=== PATIENT | female | born 1950 | race American Indian/Alaskan Native ===

== ENCOUNTER 2016-07-12 20:31 | Emergency (ER) | payer MEDICARE ==
[2016-07-12] MEDS ORDERED: TYLENOL PO ONE (22:53)
--- NOTE | 2016-07-12 23:58 | Cat Scan Report ---
FINAL REPORT PROCEDURE: CT HEAD/BRAIN WO CON TECHNIQUE: Computerized tomography of the head was performed without contrast material. HISTORY: headache COMPARISON: No prior studies are available for comparison. FINDINGS: Skull and scalp: Normal. Paranasal sinuses: Normal. Ventricles and subarachnoid spaces: Normal. Cerebrum: No evidence of hemorrhage, acute infarction or mass . Cerebellum and brainstem: No evidence of hemorrhage, acute infarction or mass. Vasculature: Normal. Comments: None. IMPRESSION: Normal Examination
--- NOTE | 2016-07-13 00:15 | Cat Scan Report ---
FINAL REPORT PROCEDURE: CT FACIAL BONES WO CON TECHNIQUE: Computerized tomography of the facial bones and soft tissues with axial and coronal sections performed from the cranial aspect of the frontal sinuses to the caudal portion of the mandible without contrast material. HISTORY: periorbital pain s/p fall and trauma to face COMPARISON: No prior studies are available for comparison. FINDINGS: Bones: No significant abnormality. Paranasal sinuses: There is fluid in the right maxillary sinus.. Soft tissues: No significant abnormality. Other: None. IMPRESSION: There are no bony abnormalities. There is right maxillary sinusitis.
[2016-07-13 00:30] LABS: Basophils % (Auto) 0.5 % (0.0-1.8); Eosinophils % (Auto) 0.5 % (0.0-4.3); Hematocrit 38.7 % (30.3-42.9); Hemoglobin 12.9 gm/dl (10.1-14.3); Mean Corpuscular HGB Conc 33 % (30-34); Mean Corpuscular Hemoglobin 30 pg (28-32); Mean Corpuscular Volume 91 fl (79-97); Platelet Count 166 K/mm3 (140-440); Red Blood Count 4.28 M/mm3 (3.65-5.03); Red Cell Distribution Width 14.7 % (13.2-15.2); White Blood Count 8.6 K/mm3 (4.5-11.0)
[2016-07-13 00:40] LABS: Alanine Aminotransferase 15 units/L (7-56); Albumin/Globulin Ratio 1.2 %; Alkaline Phosphatase 108 units/L (35-129); Anion Gap 19 mmol/L; BUN/Creatinine Ratio 26.66; Blood Urea Nitrogen 16 mg/dL (7-17); Calcium 9.2 mg/dL (8.4-10.2); Carbon Dioxide 23 mmol/L (22-30); Chloride 101.7 mmol/L (98-107); Glucose 102 mg/dL (65-100); Potassium 4.2 mmol/L (3.6-5.0); Sodium 139 mmol/L (137-145); Total Protein 7.4 g/dL (6.3-8.2)
--- NOTE | 2016-07-13 01:11 | Emergency Department Report ---
HPI - General Chief Complaint: Seizure Time Seen by Provider: 07/12/16 22:04 - HPI HPI: The patient is a 65-year-old female with a history of epilepsy, who presents for evaluation of headache and facial pain. The patient reports left periocular facial pain and left frontal headache, onset approximately 1 hour prior to arrival, consistent since onset, moderate in severity, beginning after experiencing a seizure and striking her head on the ground. The patient denies neck pain, chest pain, dyspnea, abdominal pain, back pain, pain to the extremities, paresthesias, or deficit in the arms or legs, urine or bowel incontinence or retention, or other focal neurological deficit. ED Past Medical Hx - Past Medical History Previous Medical History?: Yes Hx Hypertension: Yes Hx Seizures: Yes - Surgical History Past Surgical History?: No - Social History Smoking Status: Never Smoker Substance Use Type: None - Medications Home Medications: Home Medications Medication Instructions Recorded Confirmed Last Taken Type Acetaminophen [Tylenol] 500 mg PO Q6HR #20 tablet 07/13/16 Unknown Rx ED Review of Systems ROS: Stated complaint: SEIZURE/HIT HEAD/LOC Other details as noted in HPI Constitutional: denies: fever ENT: reports facial pain denies: throat or neck pain Respiratory: denies: cough, shortness of breath Cardiovascular: denies: chest pain Endocrine: denies unexplained weight loss or gain Gastrointestinal: denies: abdominal pain, nausea Genitourinary: denies: dysuria Musculoskeletal: denies: leg swelling Skin: denies: rash Neurological: reports headache Hematological/Lymphatic: denies: easy bleeding or easy bruising Psych: denies sadness or hopelessness Physical Exam - Physical Exam Vital Signs: Vital Signs 07/12/16 07/12/16 07/12/16 21:03 21:08 21:17 Temperature 98.4 F 99.1 F Pulse Rate 88 81 Respiratory 18 39 H Rate Blood Pressure 108/83 158/69 O2 Sat by Pulse 100 99 Oximetry 07/12/16 07/12/16 07/13/16 22:00 23:00 00:00 Temperature Pulse Rate 74 92 H 82 Respiratory Rate Blood Pressure 144/78 111/73 O2 Sat by Pulse 98 97 99 Oximetry 07/13/16 00:11 Temperature Pulse Rate Respiratory 18 Rate Blood Pressure O2 Sat by Pulse Oximetry Physical Exam: General: well-nourished, well-developed, no acute distress Head: Normocephalic, left periocular ecchymosis in tenderness to palpation present Eyes: normal sclera, EOMI, PERRL, no proptosis or enophthalmos ENT: Mucous membranes are pink and moist Neck: trachea midline, neck supple, No neck stiffness, no cervical adenopathy Respiratory: Breath sounds equal bilaterally, no wheezing, rales, or rhonchi Cardio: S1 and S2 present, no murmurs, rubs, gallops, capillary refill is brisk Abdomen: Normoactive bowel sounds, soft abdomen, no rigidity, no guarding or rebound tenderness Musc: No pitting edema Skin: No rash Neuro: Alert oriented 2, no facial drooping, normal speech, no sensation and motor deficit in the arms or legs, reflexes 2+ symmetric on DTR testing, no coordination deficit with finger to nose testing, Romberg negative, no obvious gross neuro deficits Psych: Normal affect ED Course Vital Signs 07/12/16 07/12/16 07/12/16 21:03 21:08 21:17 Temperature 98.4 F 99.1 F Pulse Rate 88 81 Respiratory 18 39 H Rate Blood Pressure 108/83 158/69 O2 Sat by Pulse 100 99 Oximetry 07/12/16 07/12/16 07/13/16 22:00 23:00 00:00 Temperature Pulse Rate 74 92 H 82 Respiratory Rate Blood Pressure 144/78 111/73 O2 Sat by Pulse 98 97 99 Oximetry 07/13/16 00:11 Temperature Pulse Rate Respiratory 18 Rate Blood Pressure O2 Sat by Pulse Oximetry ED Medical Decision Making - Lab Data Result diagrams: 07/12/16 23:55 07/12/16 23:55 - Medical Decision Making The patient was seen and examined by myself. The patient is placed on a alarm security or surveillance monitor and continuous pulse ox. On initial evaluation, the patient was found to be in no distress. Evaluation orders were placed. The patient given a tablet of Tylenol for her headache. CT scan the head is negative. CT scan of the facial bones is negative for fracture. Lab results are unremarkable. The patient was monitored in the emergency department for greater than 2 hours without any seizure-like activity. The patient was reevaluated and reported that her pain was improved. The patient is stable for discharge with outpatient follow-up. The patient is given follow-up and return instructions. The patient expressed understanding and agreed with the plan. The patient is discharged in stable condition. Critical care attestation.: If time is entered above; I have spent that time in minutes in the direct care of this critically ill patient, excluding procedure time. ED Disposition Clinical Impression: Seizure, Acute post-traumatic headache, not intractable, Facial pain, acute Disposition: DISCHARGED TO HOME OR SELFCARE Is pt being admited?: No Does the pt Need Aspirin: No Condition: Stable Instructions: Epilepsy (ED), Medical Clearance for Psychiatric Care (ED) Prescriptions: Acetaminophen [Tylenol] 500 mg PO Q6HR #20 tablet Referrals: PRIMARY CARE, [Primary Care Provider] - 3-5 Days Time of Disposition: 01:09
[2016-07-13 01:42] VITALS: BP 129/59
== END 2016-07-13 03:23 | disposition home or self-care (01) ==
LOC: ED 20:31
DX: G44.319 Acute post-traumatic headache, not intractable (principal); R56.9 Unspecified convulsions; I10 Essential (primary) hypertension
CPT/HCPCS: 36415; 70450; 70486; 80053; 83735; 85025; 93005; 93010; 99285; G0480; 80320

== ENCOUNTER 2016-07-13 12:20 | Emergency (ER) | payer MEDICARE ==
[2016-07-13] MEDS ORDERED: KEPPRA 1,000 MG/NS 0.75% 100ML 1,000 MG/100 ML BAG IV ONE (12:48)
[2016-07-13] MEDS ORDERED: TORADOL IV ONE (12:49)
--- NOTE | 2016-07-13 12:58 | Emergency Department Report ---
ED Seizure HPI - General Chief Complaint: Seizure Stated Complaint: SEIZURES Time Seen by Provider: 07/13/16 12:41 Source: patient, EMS Mode of arrival: Stretcher Limitations: No Limitations - History of Present Illness Initial Comments: 65 year old female the past medical history schizophrenia, hypertension, and seizures presents from [place] with seizure. Seizure was witnessed by staff and last approximately 30 seconds. Patient's been compliant with her Keppra to 50 mg twice a day. Patient was seen here last night for seizure as well. During that seizure episode patient fell injuring the left side of her face. Patient had a negative CT head and facial bones last night. Per medical record review she did not receive any IV seizure medication prior to discharge. Patient complains continued moderate pain to the left maxillary facial bones there is worse with palpation. Mild tongue abrasion without urinary incontinence reported. - Related Data Previous Rx's Medication Instructions Recorded Last Taken Type Acetaminophen [Tylenol] 500 mg PO Q6HR #20 tablet 07/13/16 Unknown Rx levETIRAcetam [Keppra TAB] 500 mg PO BID #60 tablet 07/13/16 Unknown Rx Allergies Allergy/AdvReac Type Severity Reaction Status Date / Time No Known Allergies Allergy Unverified 07/12/16 21:03 ED Review of Systems ROS: Stated complaint: SEIZURES Other details as noted in HPI Comment: All other systems reviewed and negative Other: Constitutional: No fevers chills Eyes: No eye pain visual changes ENT: No ear pain or throat pain. + left face pain Neck: Denies pain Respiratory: Denies cough wheezing shortness of breath Cardiovascular: Denies chest pain, palpitations, syncope GI: Denies abdominal pain, nausea, vomiting, diarrhea : Denies dysuria Musculoskeletal: Denies back pain Skin: Denies rash, lesions, erythema Neurologic: Denies numbness, weakness Psychiatric: Denies suicidal ideation, hallucinations ED Past Medical Hx - Past Medical History Previous Medical History?: Yes Hx Hypertension: Yes Hx Seizures: Yes - Social History Smoking Status: Unknown if ever smoked - Medications Home Medications: Home Medications Medication Instructions Recorded Confirmed Last Taken Type Acetaminophen [Tylenol] 500 mg PO Q6HR #20 tablet 07/13/16 Unknown Rx levETIRAcetam [Keppra TAB] 500 mg PO BID #60 tablet 07/13/16 Unknown Rx ED Physical Exam - General Limitations: No Limitations - Other Other exam information: General: No limitations Head exam: Atraumatic, normocephalic Eyes exam: Normal appearance ENT: Moist mucous membrane, normal oropharynx. Mild abrasion to anterior tongue. Mild swelling and tenderness to left maxillary sinus bone Neck exam: Normal inspection, full range of motion Respiratory exam: Clear to auscultation bilateral, no wheezes, rales, crackles Cardiovascular: Normal rate and rhythm, normal heart sounds Abdomen: Soft, nondistended, and nontender, with normal bowel sounds, no rebound, or guarding Extremity: Full range of motion normal inspection no deformity Back: Normal Inspection, full range of motion, no tenderness Neurologic: Alert, oriented x3, cranial nerves intact, no motor or sensory deficit Psychiatric: normal affect, normal mood Skin: Warm, dry, intact ED Course Vital Signs 07/13/16 07/13/16 12:34 13:11 Temperature 98.4 F Pulse Rate 88 77 Respiratory 17 Rate Blood Pressure 156/110 Blood Pressure 151/70 [Right] O2 Sat by Pulse 97 97 Oximetry - Reevaluation(s) Reevaluation #1: 07/13/16 12:57 IV Keppra 1000 mg and Toradol ordered ED Medical Decision Making - Lab Data Result diagrams: 07/13/16 13:20 07/13/16 13:20 Lab Results 07/13/16 07/13/16 07/13/16 Range/Units 13:20 13:20 13:54 WBC 6.0 (4.5-11.0) K/mm3 RBC 4.15 (3.65-5.03) M/mm3 Hgb 12.4 (10.1-14.3) gm/dl Hct 37.8 (30.3-42.9) % MCV 91 (79-97) fl MCH 30 (28-32) pg MCHC 33 (30-34) % RDW 14.7 (13.2-15.2) % Plt Count 157 (140-440) K/mm3 Lymph % (Auto) 29.8 (13.4-35.0) % [place] % (Auto) 8.2 H (0.0-7.3) % Eos % (Auto) 0.6 (0.0-4.3) % Baso % (Auto) 0.3 (0.0-1.8) % Lymph # 1.8 (1.2-5.4) K/mm3 [place] # 0.5 (0.0-0.8) K/mm3 Eos # 0.0 (0.0-0.4) K/mm3 Baso # 0.0 (0.0-0.1) K/mm3 Seg Neutrophils % 61.1 (40.0-70.0) % Seg Neutrophils # 3.7 (1.8-7.7) K/mm3 Sodium 142 (137-145) mmol/L Potassium 4.5 (3.6-5.0) mmol/L Chloride 103.3 (98-107) mmol/L Carbon Dioxide 26 (22-30) mmol/L Anion Gap 17 mmol/L BUN 15 (7-17) mg/dL Creatinine 0.6 L (0.7-1.2) mg/dL Estimated GFR > 60 ml/min BUN/Creatinine Ratio 25.00 % Glucose 89 (65-100) mg/dL Calcium 9.1 (8.4-10.2) mg/dL Magnesium 2.00 (1.7-2.3) mg/dL Urine Opiates Screen Presumptive negative Urine Methadone Screen Presumptive negative Ur Barbiturates Screen Presumptive negative Ur Phencyclidine Scrn Presumptive negative Ur Amphetamines Screen Presumptive negative U Benzodiazepines Scrn Presumptive negative Urine Cocaine Screen Presumptive negative U Marijuana (THC) Screen Presumptive negative Drugs of Abuse Note Disclamer - Medical Decision Making The patient had no further seizure activity in the ED. Pt received Keppra 100mg IV. patient take his Keppra from 250 to 500 mg twice a day. - Differential Diagnosis seizure, medication noncompliance, electrolyte abnormalities Critical Care Time: No Critical care attestation.: If time is entered above; I have spent that time in minutes in the direct care of this critically ill patient, excluding procedure time. ED Disposition Clinical Impression: Breakthrough seizure Disposition: OP ADMITTED IP TO THIS HOSP Is pt being admited?: Yes Condition: Stable Instructions: Epilepsy (ED) Additional Instructions: Increasing your Keppra to 500 mg twice a day. Follow-up with neurology. Return if symptoms worsen. Prescriptions: levETIRAcetam [Keppra TAB] 500 mg PO BID #60 tablet Referrals: GAUTAM KIM MD [Staff Physician] - 3-5 Days (Neurology) NIKKY MYERS MD [Staff Physician] - 3-5 Days (Neurology) Time of Disposition: 14:48
--- NOTE | 2016-07-13 13:08 | Admit Criteria Form ---
Admission Criteria Documentation: SEIZURE Clinical Indications for Admission to Inpatient Care (Place 'X' for any and all applicable criteria): Admission is indicated for seizure and ANY ONE of the following(1)(2)(3)(4)(5): [X]I. Inpatient admission required rather than observation care (Also use Seizure: Observation Care Criteria as appropriate) because of ANY ONE of the following: [ ]a) Altered mental status that is severe or persistent [ ]b) New focal neurologic deficit that is severe or persistent [ ]c) Metabolic disorder (eg, hypoglycemia, hyponatremia) that is severe or persistent [X]d) Recurrent seizure [ ]e) Outpatient antiseizure regimen cannot be established (eg , patient cannot tolerate medication, initiation requires inpatient care) [ ]f) Need for ongoing intravenous infusion of antiseizure medication [ ]g) Cardiac arrhythmias of immediate concern [ ]h) Cerebral bleeding, hydrocephalus, or vasospasm monitoring (14) [ ]i) Increased intracranial pressure or cerebral edema monitoring (15) [ ]j) Other treatment or monitoring requiring inpatient admission [ ]II. Status epilepticus [A] or repetitive seizures not controlled with emergent treatment (6)(8) [ ]III. Brain disorder (eg, tumor, edema, and hydrocephalus) that requiring monitoring or intervention available only at inpatient level of care. [ ]IV. Brain insult (eg, severe trauma, stroke, drug toxicity, or withdrawal) that requires monitoring or intervention available only at inpatient level of care (10)(11) Extended stay beyond goal length of stay may be needed for (22) [ ]a) Complications of status epilepticus [ ]b) Refractory status epilepticus [ ]c) Etiology-specific therapy for conditions such as [employer] infection, head injury,eclampsia, severe metabolic abnormalities, and brain tumor [ ]d) Residual neurologic damage, [ ]e) Initiation of significant change to anticonvulsant treatment [ ]f) Older patients (65 years or older) [ ]g) Patient requiring intubation (eg, to protect airway) The original [email or web address] content created by [employer] has been revised. The portions of the content which have been revised are identified through the use of italic text or in bold, and [employer] license of [facility] [employer] has neither reviewed nor approved the modified material. All other unmodified content is copyright [facility] [employer]. Please see references footnoted in the original [facility] edition 2016
[2016-07-13 13:36] LABS: Basophils % (Auto) 0.3 % (0.0-1.8); Eosinophils % (Auto) 0.6 % (0.0-4.3); Hematocrit 37.8 % (30.3-42.9); Hemoglobin 12.4 gm/dl (10.1-14.3); Mean Corpuscular HGB Conc 33 % (30-34); Mean Corpuscular Hemoglobin 30 pg (28-32); Mean Corpuscular Volume 91 fl (79-97); Platelet Count 157 K/mm3 (140-440); Red Blood Count 4.15 M/mm3 (3.65-5.03); Red Cell Distribution Width 14.7 % (13.2-15.2)
[2016-07-13 13:53] LABS: Blood Urea Nitrogen 15 mg/dL (7-17); Calcium 9.1 mg/dL (8.4-10.2); Carbon Dioxide 26 mmol/L (22-30); Glucose 89 mg/dL (65-100)
[2016-07-13 13:54] LABS: Anion Gap 17 mmol/L; Chloride 103.3 mmol/L (98-107); Potassium 4.5 mmol/L (3.6-5.0); Sodium 142 mmol/L (137-145)
[2016-07-13 13:58] LABS: Urine Drugs of Abuse Note Disclamer
[2016-07-13 15:13] VITALS: BP 134/67
== END 2016-07-13 16:23 | disposition admitted as inpatient to this hospital (09) ==
LOC: ED 12:20
DX: R56.9 Unspecified convulsions (principal); R51 Headache; I10 Essential (primary) hypertension
CPT/HCPCS: 36415; 80048; 80307; 83735; 85025; 96365; 96375; 99284; J1885; J1953

== ENCOUNTER 2016-12-30 12:10 | Inpatient (IN) | payer MEDICARE ==
[2016-12-30 14:01] LABS: Basophils % (Auto) 0.9 % (0.0-1.8); Hematocrit 40.9 % (30.3-42.9); Hemoglobin 13.9 gm/dl (10.1-14.3); Mean Corpuscular HGB Conc 34 % (30-34); Mean Corpuscular Hemoglobin 31 pg (28-32); Mean Corpuscular Volume 92 fl (79-97); Platelet Count 176 K/mm3 (140-440); Red Blood Count 4.47 M/mm3 (3.65-5.03); Red Cell Distribution Width 14.1 % (13.2-15.2); White Blood Count 7.8 K/mm3 (4.5-11.0)
[2016-12-30 14:02] LABS: Alanine Aminotransferase 17 units/L (7-56); Albumin 4.4 g/dL (3.9-5); Albumin/Globulin Ratio 1.5 %; Alkaline Phosphatase 112 units/L (35-129); Anion Gap 20 mmol/L; BUN/Creatinine Ratio 20; Blood Urea Nitrogen 14 mg/dL (7-17); Calcium 9.5 mg/dL (8.4-10.2); Carbon Dioxide 26 mmol/L (22-30); Chloride 97.9 mmol/L (98-107); Glucose 115 mg/dL (65-100); Sodium 140 mmol/L (137-145); Total Protein 7.3 g/dL (6.3-8.2)
[2016-12-30] MEDS ORDERED: KEPPRA 1,000 MG/NS 0.75% 100ML 1,000 MG/100 ML BAG IV ONE (16:35)
--- NOTE | 2016-12-30 16:35 | Emergency Department Report ---
ED General Adult HPI - General Chief complaint: Seizure Stated complaint: SEIZURE Time Seen by Provider: 12/30/16 16:27 Source: patient, EMS (ems notes not available at time of chart dictation), RN notes reviewed Mode of arrival: Stretcher Limitations: No Limitations, Other (patient is a poor historian) - History of Present Illness Initial comments: This is a 66-year-old female. The patient has a past medical history of schizophrenia, hypertension and seizure disorder. As per her enclosed medical records, patient takes 750 mg of Keppra twice daily. Patient is sent to the ER for possible seizure. Apparently she was found down at home by a caregiver. Patient has no recollection of this event. She denies headache, neck pain, chest pain, abdominal pain, shortness of breath, denies homicidality and suicidality. Patient has no complaints, therefore no exacerbating or relieving factors, no radiation, no quality due to the nature of her symptoms. -: unknown Severity scale (0 -10): 0 Improves with: none Worsens with: none Associated Symptoms: denies other symptoms - Related Data Home Medications Medication Instructions Recorded Confirmed Last Taken Hydrochlorothiazide [HCTZ] 25 mg PO DAILY 12/30/16 12/30/16 Unknown Meloxicam [Mobic] 7.5 mg PO DAILY 12/30/16 12/30/16 Unknown levETIRAcetam [Keppra TAB] 750 mg PO BID 12/30/16 12/30/16 Unknown Previous Rx's Medication Instructions Recorded Last Taken Type Acetaminophen [Tylenol] 500 mg PO Q6HR #20 tablet 07/13/16 Unknown Rx Allergies Allergy/AdvReac Type Severity Reaction Status Date / Time No Known Allergies Allergy Unverified 07/12/16 21:03 ED Review of Systems ROS: Stated complaint: SEIZURE Other details as noted in HPI Constitutional: denies: fever Eyes: denies: eye discharge ENT: denies: epistaxis Respiratory: denies: cough Cardiovascular: denies: chest pain Gastrointestinal: denies: abdominal pain Genitourinary: denies: dysuria Musculoskeletal: as per HPI Skin: as per HPI Neurological: confusion Psychiatric: denies: homicidal thoughts, suicidal thoughts ED Past Medical Hx - Past Medical History Previous Medical History?: Yes Hx Hypertension: Yes Hx Seizures: Yes Hx Psychiatric Treatment: Yes (Bipolar) - Social History Smoking Status: Unknown if ever smoked - Medications Home Medications: Home Medications Medication Instructions Recorded Confirmed Last Taken Type Acetaminophen [Tylenol] 500 mg PO Q6HR #20 tablet 07/13/16 12/30/16 Unknown Rx Hydrochlorothiazide [HCTZ] 25 mg PO DAILY 12/30/16 12/30/16 Unknown History Meloxicam [Mobic] 7.5 mg PO DAILY 12/30/16 12/30/16 Unknown History levETIRAcetam [Keppra TAB] 750 mg PO BID 12/30/16 12/30/16 Unknown History ED Physical Exam - General Limitations: Other (the patient is a poor historian) General appearance: alert, in no apparent distress - Head Head exam: Present: atraumatic, normocephalic - Eye Eye exam: Present: normal appearance, EOMI, other (visual acuity intact to finger counting, color perception, reading at a close distance). Absent: nystagmus - ENT ENT exam: Present: normal exam, normal orophraynx, mucous membranes moist, TM's normal bilaterally, normal external ear exam, other (negative nasoseptal hematoma. Negative hemotympanum) - Neck Neck exam: Present: normal inspection, full ROM. Absent: tenderness, meningismus - Respiratory Respiratory exam: Present: normal lung sounds bilaterally. Absent: respiratory distress, chest wall tenderness - Cardiovascular Cardiovascular Exam: Present: regular rate, normal rhythm, normal heart sounds. Absent: systolic murmur, diastolic murmur, rubs, gallop - GI/Abdominal GI/Abdominal exam: Present: soft, normal bowel sounds. Absent: distended, tenderness, guarding, rebound, rigid, pulsatile mass - Extremities Exam Extremities exam: Present: normal inspection, full ROM, normal capillary refill. Absent: tenderness, calf tenderness - Back Exam Back exam: Present: normal inspection, full ROM. Absent: tenderness, CVA tenderness (R), paraspinal tenderness, vertebral tenderness - Neurological Exam Neurological exam: Present: alert, normal gait, other (Extraocular movements intact. Tongue midline. No facial droop. Facial sensation intact to light touch in the V1, V2, V3 distribution bilaterally. 5 and 5 strength in 4 extremities.. Sensation is intact to light touch in 4 extremities.). Absent: motor sensory deficit - Psychiatric Psychiatric exam: Present: normal affect, normal mood. Absent: homicidal ideation, suicidal ideation - Skin Skin exam: Present: warm, dry, intact, normal color. Absent: rash ED Course Vital Signs 12/30/16 12/30/16 12/30/16 12:59 17:55 18:08 Temperature 99.1 F Pulse Rate 85 82 80 Respiratory 16 19 14 Rate Blood Pressure 202/98 Blood Pressure 202/98 205/91 185/99 [Left] O2 Sat by Pulse 97 94 94 Oximetry - Reevaluation(s) Reevaluation #1: 12/30/16 18:56 Differential diagnosis, including but not limited to: Intracranial injury, cervical spine injury, pneumonia, urinary tract infection, electrolyte arrangement, myositis, breakthrough seizure Assessment and plan: 66-year-old female with a history of seizure disorder, probable breakthrough seizure. The patient has been observed in the ER for hours. She's had no convulsive events. She has no complaints at this time. The patient does not require a 1013, although she has some samaritan fixations. She was evaluated by the crisis expert, Ms. Rita Aleman, who agreed that the patient does not meet 1013 criteria. Laboratory studies were unremarkable. CT scan of the brain and cervical spine were also unremarkable. Patient loaded with 1 g of Keppra, and at one point would not cooperate with CT scan, so required 4 mg of Ativan. The patient has been observed in the ER without decompensation, and she is suitable to follow-up within a patient neurologist at this time. 12/30/16 19:01 Reevaluation #2: 12/30/16 20:10 CT scan of the brain is negative. CT scan of the cervical spine is pending. Patient with no distress or complaints at this time, appears comfortable. Reevaluation #3: 12/30/16 22:19 CT of the cervical spine is negative. No convulsive events 4 hours. Patient will be discharged at this time. ED Medical Decision Making - Lab Data Result diagrams: 12/30/16 13:26 12/30/16 13:26 Vital Signs 12/30/16 12/30/16 12/30/16 12:59 17:55 18:08 Temperature 99.1 F Pulse Rate 85 82 80 Respiratory 16 19 14 Rate Blood Pressure 202/98 Blood Pressure 202/98 205/91 185/99 [Left] O2 Sat by Pulse 97 94 94 Oximetry Lab Results 11/12/30/16 12/30/16 Range/Units 13:26 13:26 16:44 WBC 7.8 (4.5-11.0) K/mm3 RBC 4.47 (3.65-5.03) M/mm3 Hgb 13.9 (10.1-14.3) gm/dl Hct 40.9 (30.3-42.9) % MCV 92 (79-97) fl MCH 31 (28-32) pg MCHC 34 (30-34) % RDW 14.1 (13.2-15.2) % Plt Count 176 (140-440) K/mm3 Lymph % (Auto) 31.1 (13.4-35.0) % [place] % (Auto) 8.3 H (0.0-7.3) % Eos % (Auto) 1.0 (0.0-4.3) % Baso % (Auto) 0.9 (0.0-1.8) % Lymph # 2.4 (1.2-5.4) K/mm3 [place] # 0.6 (0.0-0.8) K/mm3 Eos # 0.1 (0.0-0.4) K/mm3 Baso # 0.1 (0.0-0.1) K/mm3 Seg Neutrophils % 58.7 (40.0-70.0) % Seg Neutrophils # 4.6 (1.8-7.7) K/mm3 Sodium 140 (137-145) mmol/L Potassium 4.0 (3.6-5.0) mmol/L Chloride 97.9 L (98-107) mmol/L Carbon Dioxide 26 (22-30) mmol/L Anion Gap 20 mmol/L BUN 14 (7-17) mg/dL Creatinine 0.7 (0.7-1.2) mg/dL Estimated GFR > 60 ml/min BUN/Creatinine Ratio 20 % Glucose 115 H (65-100) mg/dL Calcium 9.5 (8.4-10.2) mg/dL Total Bilirubin 0.50 (0.1-1.2) mg/dL AST 22 (5-40) units/L ALT 17 (7-56) units/L Alkaline Phosphatase 112 (35-129) units/L Total Creatine Kinase 335 H (30-135) units/L Total Protein 7.3 (6.3-8.2) g/dL Albumin 4.4 (3.9-5) g/dL Albumin/Globulin Ratio 1.5 % Urine Color (Yellow) Urine Turbidity (Clear) Urine pH (5.0-7.0) Ur Specific [place] (1.003-1.030) Urine Protein (Negative) mg/dL Urine Glucose (UA) (Negative) mg/dL Urine Ketones (Negative) mg/dL Urine Blood (Negative) Urine Nitrite (Negative) Urine Bilirubin (Negative) Urine Urobilinogen (<2.0) mg/dL Ur Leukocyte Esterase (Negative) Urine WBC (Auto) (0.0-6.0) /HPF Urine RBC (Auto) (0.0-6.0) /HPF U Epithel Cells (Auto) (0-13.0) /HPF Salicylates (2.8-20.0) mg/dL Acetaminophen (10.0-30.0) ug/mL 12/30/16 12/30/16 12/30/16 Range/Units 16:44 16:44 17:08 WBC (4.5-11.0) K/mm3 RBC (3.65-5.03) M/mm3 Hgb (10.1-14.3) gm/dl Hct (30.3-42.9) % MCV (79-97) fl MCH (28-32) pg MCHC (30-34) % RDW (13.2-15.2) % Plt Count (140-440) K/mm3 Lymph % (Auto) (13.4-35.0) % [place] % (Auto) (0.0-7.3) % Eos % (Auto) (0.0-4.3) % Baso % (Auto) (0.0-1.8) % Lymph # (1.2-5.4) K/mm3 [place] # (0.0-0.8) K/mm3 Eos # (0.0-0.4) K/mm3 Baso # (0.0-0.1) K/mm3 Seg Neutrophils % (40.0-70.0) % Seg Neutrophils # (1.8-7.7) K/mm3 Sodium (137-145) mmol/L Potassium (3.6-5.0) mmol/L Chloride (98-107) mmol/L Carbon Dioxide (22-30) mmol/L Anion Gap mmol/L BUN (7-17) mg/dL Creatinine (0.7-1.2) mg/dL Estimated GFR ml/min BUN/Creatinine Ratio % Glucose (65-100) mg/dL Calcium (8.4-10.2) mg/dL Total Bilirubin (0.1-1.2) mg/dL AST (5-40) units/L ALT (7-56) units/L Alkaline Phosphatase (35-129) units/L Total Creatine Kinase (30-135) units/L Total Protein (6.3-8.2) g/dL Albumin (3.9-5) g/dL Albumin/Globulin Ratio % Urine Color Straw (Yellow) Urine Turbidity Clear (Clear) Urine pH 7.0 (5.0-7.0) Ur Specific [place] 1.010 (1.003-1.030) Urine Protein <15 mg/dl (Negative) mg/dL Urine Glucose (UA) Neg (Negative) mg/dL Urine Ketones Neg (Negative) mg/dL Urine Blood Neg (Negative) Urine Nitrite Neg (Negative) Urine Bilirubin Neg (Negative) Urine Urobilinogen < 2.0 (<2.0) mg/dL Ur Leukocyte Esterase Neg (Negative) Urine WBC (Auto) 0.0 (0.0-6.0) /HPF Urine RBC (Auto) 1.0 (0.0-6.0) /HPF U Epithel Cells (Auto) < 1.0 (0-13.0) /HPF Salicylates < 0.3 L (2.8-20.0) mg/dL Acetaminophen < 15.0 (10.0-30.0) ug/mL - EKG Data -: EKG Interpreted by Ma - EKG Data 12/30/16 19:03 Normal sinus, 78 bpm, left axis, high left ventricular voltage, left axis deviation, not morphologically consistent with ST elevation myocardial infarction, unchanged from prior EKG from June 2016. - Radiology Data Radiology results: report reviewed, image reviewed X-ray the chest is negative. X-ray of the pelvis is negative. Noncontrast CT scan of the brain and cervical spine: Critical care attestation.: If time is entered above; I have spent that time in minutes in the direct care of this critically ill patient, excluding procedure time. ED Disposition Clinical Impression: History of seizure, Elevated blood pressure reading Disposition: DC-01 TO HOME OR SELFCARE Is pt being admited?: No Does the pt Need Aspirin: No Condition: Good Additional Instructions: Continue current outpatient medications. Do not drive or operate motor vehicles for the next 6 months. Follow up with the primary care doctor or neurologist within the next 7-10 days for seizures and elevated blood pressure. Make certain to take seizure medication as directed. Noncompliance with seizure medication may result in breakthrough seizure, which in turn may result in , disability, paralysis, loss of quality of life. It is also very important to take blood pressure medication, as the patient had an elevated blood pressure while in the emergency department. Her blood pressure needs to be checked and her followed up by primary care doctor within the next 7-10 days. Long-term consultations of hypertension and elevated blood pressure includes stroke, heart attack, disability, , paralysis, loss of quality of life. Please return to the ER by Jennifer fevers, chills, chest pain, shortness of breath , confusion, intractable nausea or vomiting, inability to tolerate liquid feeds. Referrals: LAWRENCE SMITH MD [Primary Care Provider] - 3-5 Days ARTIS BONNER MD [Referring] - 3-5 Days GAUTAM KIM MD [Staff Physician] - 3-5 Days MICKIE CHEW MD [Staff Physician] - 3-5 Days [facility] [Provider Group] - 3-5 Days
--- NOTE | 2016-12-30 17:33 | XRay Report ---
FINAL REPORT EXAM: XR PELVIS 1-2V HISTORY: post fall pelvic pain TECHNIQUE: AP pelvis PRIORS: None. FINDINGS: No acute fractures are identified. The pubic symphysis and SI joints are intact. No evidence of hip fracture or dislocation. No bony lesions are identified. IMPRESSION: Negative no acute abnormalities seen
[2016-12-30 17:35] LABS: Bilirubin,Urine NEG (Negative); Blood,Urine NEG (Negative); Ketones,Urine NEG (Negative); Leukocyte Esterase,Urine NEG (Negative); Nitrite,Urine NEG (Negative); Protein,Urine <15 mg/dL mg/dL (Negative); Urobilinogen,Urine < 2.0 mg/dL (<2.0)
[2016-12-30] MEDS ORDERED: ATIVAN IV ONE (17:35)
--- NOTE | 2016-12-30 17:35 | XRay Report ---
FINAL REPORT EXAM: XR CHEST 1V AP HISTORY: pna TECHNIQUE: upright single view chest PRIORS: None. FINDINGS: Cardiac and mediastinal contours are unremarkable. No focal pulmonary infiltrate is identified. No pleural fluid collection seen. Pulmonary vasculature is unremarkable. IMPRESSION: Negative single-view chest
--- NOTE | 2016-12-30 19:12 | Cat Scan Report ---
FINAL REPORT EXAM: CT HEAD/BRAIN WO CON HISTORY: / seizure TECHNIQUE: CT head without contrast PRIORS: Comparison is dated July 12, 2016 FINDINGS: There is some motion artifact partially limiting the exam. No acute intra-axial or extra-axial hemorrhage is identified. There is no evidence of midline shift or mass effect. The ventricles and sulci are within normal limits. Brandon-white matter differentiation is intact. No acute parenchymal abnormalities seen. Bony calvarium is grossly intact. Visualized portions of the mastoids and paranasal sinuses are unremarkable. IMPRESSION: Motion artifact noted No acute findings
--- NOTE | 2016-12-30 22:15 | Cat Scan Report ---
FINAL REPORT EXAM: CT CERVICAL SPINE WO CON HISTORY: / seizure TECHNIQUE: CT cervical spine with reconstructions PRIORS: None. FINDINGS: Vertebral bodies demonstrate normal height and alignment. There is diffuse disc space narrowing from C2-C3 through C6-C7 with anterior and posterior vertebral osteophytes. The facet joints demonstrate normal alignment. The spinous processes are intact. Craniocervical junction is unremarkable. C1 and C2 are intact. IMPRESSION: Negative CT cervical spine. No acute abnormality seen.
[2017-01-01] MEDS ORDERED: KEPPRA PO SCH (23:45)
[2017-01-02] MEDS ORDERED: TYLENOL PO PRN ×2 (01:08→06:00)
[2017-01-02] MEDS ORDERED: MORPHINE IV PRN (01:08)
[2017-01-02] MEDS ORDERED: PERCOCET 5/325 PO PRN (01:08)
[2017-01-02] MEDS ORDERED: ZOFRAN IV PRN (01:08)
[2017-01-02] MEDS ORDERED: DULCOLAX PR PRN (01:08)
[2017-01-02] MEDS ORDERED: MILK OF MAGNESIA PO PRN (01:08)
[2017-01-02] MEDS ORDERED: D5NS 1,000 ML IV SCH (02:00)
[2017-01-02 05:12] LABS: Basophils % (Auto) 0.3 % (0.0-1.8); Eosinophils % (Auto) 1.7 % (0.0-4.3); Hematocrit 38.9 % (30.3-42.9); Hemoglobin 12.8 gm/dl (10.1-14.3); Mean Corpuscular HGB Conc 33 % (30-34); Mean Corpuscular Hemoglobin 30 pg (28-32); Mean Corpuscular Volume 91 fl (79-97); Platelet Count 173 K/mm3 (140-440); Red Blood Count 4.27 M/mm3 (3.65-5.03); Red Cell Distribution Width 13.6 % (13.2-15.2); White Blood Count 7.5 K/mm3 (4.5-11.0)
[2017-01-02 05:50] LABS: Alanine Aminotransferase 13 units/L (7-56); Albumin 3.8 g/dL (3.9-5); Albumin/Globulin Ratio 1.3 %; Alkaline Phosphatase 93 units/L (35-129); Anion Gap 15 mmol/L; BUN/Creatinine Ratio 32; Blood Urea Nitrogen 19 mg/dL (7-17); Calcium 8.6 mg/dL (8.4-10.2); Carbon Dioxide 28 mmol/L (22-30); Chloride 104.7 mmol/L (98-107); Glucose 90 mg/dL (65-100); Potassium 3.7 mmol/L (3.6-5.0); Sodium 144 mmol/L (137-145); Total Protein 6.7 g/dL (6.3-8.2)
--- NOTE | 2017-01-02 06:28 | Event Note ---
Date: 01/01/17 See dictated H/p in reports
--- NOTE | 2017-01-02 08:42 | History and Physical Report ---
CHIEF COMPLAINT: Seizures and decreased responsiveness. HISTORY OF PRESENT ILLNESS: A 66-year-old female with history of seizures and schizophrenia, was admitted to the Emergency Room for seizures. The patient was found lying on the floor with face down. No chest pain, no palpitations. CURRENT MEDICATIONS: Keppra 750 twice a day, hydrochlorothiazide 25 mg once a day, meloxicam 7.5 mg once a day. PAST SURGICAL HISTORY: Unavailable. SOCIAL HISTORY: Does not smoke. FAMILY HISTORY: Hypertension. REVIEW OF SYSTEMS: Other than seizures and falling lethargy, review of systems is essentially negative. PHYSICAL EXAMINATION: GENERAL: Elderly female, cooperative during examination, lethargic. VITAL SIGNS: Blood pressure is 168/70, temperature is 99.2, pulse is 83, respirations are 20. HEENT: Unremarkable. Pupils equal and reactive. NECK: Supple, no lymphadenopathy, no thyromegaly. LUNGS: Clear to auscultation and percussion. Good air entry. CARDIOVASCULAR: S1, S2 heard. No gallop, no murmur, no rub. Apical impulse in left fifth intercostal space and midclavicular line. ABDOMEN: Soft and benign. No hepatosplenomegaly. No guarding, no rigidity. Hernial orifices are normal. EXTREMITIES: Good pedal pulses. No pedal edema. CENTRAL NERVOUS SYSTEM: Alert, but lethargic to some extent. Occasionally, responds well. SKIN: Normal. LABORATORY DATA: Urine is normal. ASSESSMENT AND PLAN: 1. Acute encephalopathy secondary to seizure disorder. Continue IV Keppra bridged to p.o. Keppra. 2. Seizure disorder. Continue Keppra. 3. Hypertension. Continue hydrochlorothiazide and add losartan if necessary. 4. Psychosis. The patient to be evaluated by mental health. 5. Social issues. The patient may need placement. 6. Deep venous thrombosis prophylaxis, Lovenox 30 mg subcutaneous daily. JOB# [id number] VSM/NTS
[2017-01-02] MEDS: KEPPRA PO SCH ×2 (09:23→22:37)
[2017-01-02] MEDS: MOBIC PO SCH (09:23)
[2017-01-02] MEDS: HCTZ PO SCH (09:24)
--- NOTE | 2017-01-02 09:36 | Progress Note ---
<YULISSA BANUELOS - Last Filed: 01/02/17 15:02> Assessment and Plan Assessment and plan: Patient is a 66 years old female with past medical history of seizure and schizophrenia who presented to the emergency department for seizures. Acute encephalopathy Resolved secondary to seizure, postictal state. CT of the head and cervical spine unremarkable. Seizure precautions Seizure disorder breakthrough seizure secondary to medication noncompliance. Continue on oral Keppera Frequent neuro checks. We will obtain EEG Ativan when necessary Oxygen supplement when necessary Implement seizure precautions Neurology consulted Supportive care Hypertension Resume home antihypertensive medication Hydralazine for SBP>160 Closely monitor blood pressure Psychosis Mental health consulted Social issues Patient needs placement, spoke with case management Medical Noncompliance Patient noncompliance with Keppra Counseled to improve compliance DVT prophylaxis Lovenox History Interval history: Patient denies chest pain, shortness of breath, no episode of seizure. Labs and nursing notes reviewed Hospitalist Physical - Constitutional Vitals: Temp Pulse Resp BP Pulse Ox 99.4 F 76 18 146/75 95 01/02/17 07:24 01/02/17 07:24 01/02/17 07:24 01/02/17 07:24 01/02/17 07:24 General appearance: Present: no acute distress - EENT Eyes: Present: PERRL ENT: hearing intact - Neck Neck: Present: supple - Respiratory Respiratory effort: normal Respiratory: bilateral: CTA - Cardiovascular Rhythm: regular Heart Sounds: Present: S1 & S2 - Abdominal General gastrointestinal: soft, non-tender - Integumentary Integumentary: Present: clear, warm, dry - Psychiatric Psychiatric: appropriate mood/affect - Neurologic Neurologic: moves all extremities - Allied Health Allied health notes reviewed: nursing Results - Labs CBC & Chem 7: 01/02/17 04:42 01/02/17 04:42 Labs: Laboratory Last Values WBC 7.5 K/mm3 (4.5-11.0) 01/02/17 04:42 RBC 4.27 M/mm3 (3.65-5.03) 01/02/17 04:42 Hgb 12.8 gm/dl (10.1-14.3) 01/02/17 04:42 Hct 38.9 % (30.3-42.9) 01/02/17 04:42 MCV 91 fl (79-97) 01/02/17 04:42 MCH 30 pg (28-32) 01/02/17 04:42 MCHC 33 % (30-34) 01/02/17 04:42 RDW 13.6 % (13.2-15.2) 01/02/17 04:42 Plt Count 173 K/mm3 (140-440) 01/02/17 04:42 Lymph % (Auto) 50.1 % (13.4-35.0) H 01/02/17 04:42 [place] % (Auto) 8.0 % (0.0-7.3) H 01/02/17 04:42 Eos % (Auto) 1.7 % (0.0-4.3) 01/02/17 04:42 Baso % (Auto) 0.3 % (0.0-1.8) 01/02/17 04:42 Lymph # 3.8 K/mm3 (1.2-5.4) 01/02/17 04:42 [place] # 0.6 K/mm3 (0.0-0.8) 01/02/17 04:42 Eos # 0.1 K/mm3 (0.0-0.4) 01/02/17 04:42 Baso # 0.0 K/mm3 (0.0-0.1) 01/02/17 04:42 Seg Neutrophils % 39.9 % (40.0-70.0) L 01/02/17 04:42 Seg Neutrophils # 3.0 K/mm3 (1.8-7.7) 01/02/17 04:42 Sodium 144 mmol/L (137-145) 01/02/17 04:42 Potassium 3.7 mmol/L (3.6-5.0) 01/02/17 04:42 Chloride 104.7 mmol/L (98-107) 01/02/17 04:42 Carbon Dioxide 28 mmol/L (22-30) 01/02/17 04:42 Anion Gap 15 mmol/L 01/02/17 04:42 BUN 19 mg/dL (7-17) H 01/02/17 04:42 Creatinine 0.6 mg/dL (0.7-1.2) L 01/02/17 04:42 Estimated GFR > 60 ml/min 01/02/17 04:42 BUN/Creatinine Ratio 32 % 01/02/17 04:42 Glucose 90 mg/dL (65-100) 01/02/17 04:42 Calcium 8.6 mg/dL (8.4-10.2) 01/02/17 04:42 Total Bilirubin 0.30 mg/dL (0.1-1.2) 01/02/17 04:42 AST 14 units/L (5-40) 01/02/17 04:42 ALT 13 units/L (7-56) 01/02/17 04:42 Alkaline Phosphatase 93 units/L (35-129) 01/02/17 04:42 Total Creatine Kinase 335 units/L (30-135) H 12/30/16 16:44 Total Protein 6.7 g/dL (6.3-8.2) 01/02/17 04:42 Albumin 3.8 g/dL (3.9-5) L 01/02/17 04:42 Albumin/Globulin Ratio 1.3 % 01/02/17 04:42 Urine Color Straw (Yellow) 12/30/16 17:08 Urine Turbidity Clear (Clear) 12/30/16 17:08 Urine pH 7.0 (5.0-7.0) 12/30/16 17:08 Ur Specific [place] 1.010 (1.003-1.030) 12/30/16 17:08 Urine Protein <15 mg/dl mg/dL (Negative) 12/30/16 17:08 Urine Glucose (UA) Neg mg/dL (Negative) 12/30/16 17:08 Urine Ketones Neg mg/dL (Negative) 12/30/16 17:08 Urine Blood Neg (Negative) 12/30/16 17:08 Urine Nitrite Neg (Negative) 12/30/16 17:08 Urine Bilirubin Neg (Negative) 12/30/16 17:08 Urine Urobilinogen < 2.0 mg/dL (<2.0) 12/30/16 17:08 Ur Leukocyte Esterase Neg (Negative) 12/30/16 17:08 Urine WBC (Auto) 0.0 /HPF (0.0-6.0) 12/30/16 17:08 Urine RBC (Auto) 1.0 /HPF (0.0-6.0) 12/30/16 17:08 U Epithel Cells (Auto) < 1.0 /HPF (0-13.0) 12/30/16 17:08 Salicylates < 0.3 mg/dL (2.8-20.0) L 12/30/16 16:44 Acetaminophen < 15.0 ug/mL (10.0-30.0) 12/30/16 16:44 - Imaging and Cardiology Chest x-ray: image reviewed <SHEEBA WEST - Last Filed: 01/02/17 19:33> Assessment and Plan Assessment and plan: I saw and evaluated the patient. I agree with the findings and the plan of care as documented in the Nurse Practitioner's~note, with the following corrections and additions. Magnesium levels checked; normal range Neuro evaluation noted and appreciated Follow EEG DC planning per case management; possible placement Hospitalist Physical - Constitutional Vitals: Temp Pulse Resp BP Pulse Ox 98.9 F 88 18 142/64 96 01/02/17 15:18 01/02/17 17:13 01/02/17 15:18 01/02/17 15:18 01/02/17 15:18 Results - Labs CBC & Chem 7: 01/02/17 04:42 01/02/17 04:42 Labs: Laboratory Last Values WBC 7.5 K/mm3 (4.5-11.0) 01/02/17 04:42 RBC 4.27 M/mm3 (3.65-5.03) 01/02/17 04:42 Hgb 12.8 gm/dl (10.1-14.3) 01/02/17 04:42 Hct 38.9 % (30.3-42.9) 01/02/17 04:42 MCV 91 fl (79-97) 01/02/17 04:42 MCH 30 pg (28-32) 01/02/17 04:42 MCHC 33 % (30-34) 01/02/17 04:42 RDW 13.6 % (13.2-15.2) 01/02/17 04:42 Plt Count 173 K/mm3 (140-440) 01/02/17 04:42 Lymph % (Auto) 50.1 % (13.4-35.0) H 01/02/17 04:42 [place] % (Auto) 8.0 % (0.0-7.3) H 01/02/17 04:42 Eos % (Auto) 1.7 % (0.0-4.3) 01/02/17 04:42 Baso % (Auto) 0.3 % (0.0-1.8) 01/02/17 04:42 Lymph # 3.8 K/mm3 (1.2-5.4) 01/02/17 04:42 [place] # 0.6 K/mm3 (0.0-0.8) 01/02/17 04:42 Eos # 0.1 K/mm3 (0.0-0.4) 01/02/17 04:42 Baso # 0.0 K/mm3 (0.0-0.1) 01/02/17 04:42 Seg Neutrophils % 39.9 % (40.0-70.0) L 01/02/17 04:42 Seg Neutrophils # 3.0 K/mm3 (1.8-7.7) 01/02/17 04:42 Sodium 144 mmol/L (137-145) 01/02/17 04:42 Potassium 3.7 mmol/L (3.6-5.0) 01/02/17 04:42 Chloride 104.7 mmol/L (98-107) 01/02/17 04:42 Carbon Dioxide 28 mmol/L (22-30) 01/02/17 04:42 Anion Gap 15 mmol/L 01/02/17 04:42 BUN 19 mg/dL (7-17) H 01/02/17 04:42 Creatinine 0.6 mg/dL (0.7-1.2) L 01/02/17 04:42 Estimated GFR > 60 ml/min 01/02/17 04:42 BUN/Creatinine Ratio 32 % 01/02/17 04:42 Glucose 90 mg/dL (65-100) 01/02/17 04:42 Calcium 8.6 mg/dL (8.4-10.2) 01/02/17 04:42 Magnesium 2.10 mg/dL (1.7-2.3) 01/02/17 17:31 Total Bilirubin 0.30 mg/dL (0.1-1.2) 01/02/17 04:42 AST 14 units/L (5-40) 01/02/17 04:42 ALT 13 units/L (7-56) 01/02/17 04:42 Alkaline Phosphatase 93 units/L (35-129) 01/02/17 04:42 Total Creatine Kinase 335 units/L (30-135) H 12/30/16 16:44 Total Protein 6.7 g/dL (6.3-8.2) 01/02/17 04:42 Albumin 3.8 g/dL (3.9-5) L 01/02/17 04:42 Albumin/Globulin Ratio 1.3 % 01/02/17 04:42 Urine Color Straw (Yellow) 12/30/16 17:08 Urine Turbidity Clear (Clear) 12/30/16 17:08 Urine pH 7.0 (5.0-7.0) 12/30/16 17:08 Ur Specific [place] 1.010 (1.003-1.030) 12/30/16 17:08 Urine Protein <15 mg/dl mg/dL (Negative) 12/30/16 17:08 Urine Glucose (UA) Neg mg/dL (Negative) 12/30/16 17:08 Urine Ketones Neg mg/dL (Negative) 12/30/16 17:08 Urine Blood Neg (Negative) 12/30/16 17:08 Urine Nitrite Neg (Negative) 12/30/16 17:08 Urine Bilirubin Neg (Negative) 12/30/16 17:08 Urine Urobilinogen < 2.0 mg/dL (<2.0) 12/30/16 17:08 Ur Leukocyte Esterase Neg (Negative) 12/30/16 17:08 Urine WBC (Auto) 0.0 /HPF (0.0-6.0) 12/30/16 17:08 Urine RBC (Auto) 1.0 /HPF (0.0-6.0) 12/30/16 17:08 U Epithel Cells (Auto) < 1.0 /HPF (0-13.0) 12/30/16 17:08 Salicylates < 0.3 mg/dL (2.8-20.0) L 12/30/16 16:44 Acetaminophen < 15.0 ug/mL (10.0-30.0) 12/30/16 16:44
[2017-01-02] MEDS ORDERED: HCTZ PO SCH (10:00)
[2017-01-02] MEDS ORDERED: MOBIC PO SCH (10:00)
--- NOTE | 2017-01-02 16:03 | Consultation ---
History of Present Illness Consult date: 01/02/17 History of present illness: patient seen and further assessed she has long prior histosy of poorly controlled seizures she is on keppra 750 mg BID this is adequate dose will check magnesium level and EEG I have seen her CT of the head and it is normal for the age I have dictated a full note Medications and Allergies Allergies Allergy/AdvReac Type Severity Reaction Status Date / Time No Known Allergies Allergy Unverified 07/12/16 21:03 Home Medications Medication Instructions Recorded Confirmed Last Taken Type Acetaminophen [Tylenol] 500 mg PO Q6HR #20 tablet 07/13/16 12/30/16 Unknown Rx Hydrochlorothiazide [HCTZ] 25 mg PO DAILY 12/30/16 12/30/16 Unknown History Meloxicam [Mobic] 7.5 mg PO DAILY 12/30/16 12/30/16 Unknown History levETIRAcetam [Keppra TAB] 750 mg PO BID 12/30/16 12/30/16 Unknown History Active Meds: Active Medications Acetaminophen (Tylenol) 650 mg PO Q4H PRN PRN Reason: Pain MILD(1-3)/Fever >100.5/DOMÍNGUEZ Bisacodyl (Dulcolax) 10 mg FL QDAY PRN PRN Reason: Constipation unrelieved by MOM Hydrochlorothiazide (Hctz) 25 mg PO DAILY [facility] Last Admin: 01/02/17 09:24 Dose: 25 mg Dextrose/Sodium Chloride (D5ns) 1,000 mls @ 100 mls/hr IV DIRECT DAVE Levetiracetam (Keppra) 750 mg PO BID [facility] Last Admin: 01/02/17 09:23 Dose: 750 mg Magnesium Hydroxide (Milk Of Magnesia) 30 ml PO Q4H PRN PRN Reason: Constipation Meloxicam (Mobic) 7.5 mg PO DAILY [facility] Last Admin: 01/02/17 09:23 Dose: 7.5 mg Morphine Sulfate (Morphine) 2 mg IV Q4H PRN PRN Reason: Pain, Moderate (4-6) Ondansetron HCl (Zofran) 4 mg IV Q8H PRN PRN Reason: N/V unrelieved by Reglan Oxycodone/Acetaminophen (Percocet 5/325) 1 tab PO Q6H PRN PRN Reason: Pain, Moderate (4-6) Physical Examination - Vital Signs Vital Signs: Vital Signs Temp Pulse Resp BP Pulse Ox 99.1 F 85 16 202/98 97 12/30/16 12:59 12/30/16 12:59 12/30/16 12:59 12/30/16 12:59 12/30/16 12:59 Results - Laboratory Findings CBC and BMP: 01/02/17 04:42 01/02/17 04:42 Abnormal Lab Findings: Abnormal Labs 12/30/16 12/30/16 12/30/16 13:26 13:26 16:44 Lymph % (Auto) Burt % (Auto) 8.3 H Seg Neutrophils % Chloride 97.9 L BUN Creatinine Glucose 115 H Total Creatine Kinase 335 H Albumin Salicylates 12/30/16 01/02/17 01/02/17 16:44 04:42 04:42 Lymph % (Auto) 50.1 H Burt % (Auto) 8.0 H Seg Neutrophils % 39.9 L Chloride BUN 19 H Creatinine 0.6 L Glucose Total Creatine Kinase Albumin 3.8 L Salicylates < 0.3 L
--- NOTE | 2017-01-03 01:56 | Consultation ---
HISTORY OF PRESENT ILLNESS: This is a 66-year-old female who presents with a history of a longstanding seizure disorder. She dates back to 2001, onset of seizures is not clear. She has had a negative CT in the past. She admits to be under some psychological stress as a result of a poor relationship with her daughter. When she presented to the hospital, she had evidence of sodium of 140, potassium of 4.0, glucose of 115. CPK was elevated at 335. The complication from the seizure where she bite her tongue quite extensively, which is typical for her. According to her history, she had a prior history of schizophrenia, hypertension. She was taking Keppra 750 mg twice daily. She states she did not miss any of her medications. Her other medications are hydrochlorothiazide 25 mg daily, Meloxicam 7.5 mg daily. Examination at this point shows she is alert and appropriate. She has a slight contusion and bruising to the right exterior aspect of the right tongue. No clear cut lacerations. The jaw opens and closes normally. There was no evidence of any jaw fracture or any jaw dislocation from the seizure. Cranial nerves are intact. Speech is clear. No tremors or asterixis. Motor tone is symmetrical. Cranial nerves are intact. Motor and sensory examination unremarkable. IMPRESSION: Repeat seizure despite even of Keppra 750 b.i.d. I do not see any marked electrolyte abnormalities. I would check a.m. magnesium level on the patient. I think that will be worthwhile getting. I will also get an EEG. The patient states to me that she typically has the seizures when she gets emotionally upset and this may be the basis, although it seems that she should have fairly good control of her seizures on Keppra 750 b.i.d. JOB# [id number] TEMI/NTS
[2017-01-03 05:27] LABS: Hematocrit 38.6 % (30.3-42.9); Hemoglobin 13.1 gm/dl (10.1-14.3); Mean Corpuscular HGB Conc 34 % (30-34); Mean Corpuscular Hemoglobin 31 pg (28-32); Mean Corpuscular Volume 92 fl (79-97); Platelet Count 162 K/mm3 (140-440); White Blood Count 7.3 K/mm3 (4.5-11.0)
[2017-01-03 05:46] LABS: Anion Gap 13 mmol/L; BUN/Creatinine Ratio 25; Blood Urea Nitrogen 15 mg/dL (7-17); Calcium 8.8 mg/dL (8.4-10.2); Carbon Dioxide 28 mmol/L (22-30); Chloride 102.2 mmol/L (98-107); Glucose 88 mg/dL (65-100); Potassium 3.4 mmol/L (3.6-5.0); Sodium 140 mmol/L (137-145)
[2017-01-03 06:37] LABS: Blastocytes % (Manual) 0 %
[2017-01-03 06:38] LABS: Basophils % (Manual) 0 % (0.0-1.8)
[2017-01-03 06:39] LABS: Diff Status Complete; Platelet Estimate Consistent w Auto
[2017-01-03] MEDS: KEPPRA PO SCH ×2 (09:52→22:14)
[2017-01-03] MEDS: MOBIC PO SCH (09:53)
[2017-01-03] MEDS: HCTZ PO SCH (09:54)
[2017-01-03] MEDS ORDERED: K-DUR PO ONE (10:00)
--- NOTE | 2017-01-03 10:28 | Discharge Summary ---
<SHEEBA WEST - Last Filed: 01/03/17 15:20> Providers - Providers Date of Admission: 01/01/17 15:03 Attending physician: SHEEBA WEST 12/30/16 16:34 Consult to Mental Health [CONS] Urgent Reason For Exam: psych Place consult to:: rn [facility]cu section gang Notified:: awaiting call back 01/02/17 01:08 Consult to Physician [CONS] Routine Consulting Provider: JENNY SYLVESTER Reason For Exam: Seizure disorder Place consult to:: Dr. Sylvester Notified:: Jacey ANGEL Phone number called:: Was contact made?: Yes If yes, spoke with:: [facility] Time called:: 07:51 01/02/17 13:56 Physical Therapy Evaluation and Treat [CONS] Routine Comment: Reason For Exam: Eval/treat, assess gait/strength 01/02/17 15:01 Consult to Dietitian/Nutrition [CONS] Routine Physician Instructions: Reason For Exam: Reason for Consult: Malnutrition Primary care physician: WEIGHT LOSS CONSULTANT Hospitalization Condition: Good Disposition: DC/TX-70 ANOTHER TYPE [facility] Exam - Constitutional Vitals: Temp Pulse Resp BP Pulse Ox 98.9 F 75 18 145/65 98 01/03/17 11:38 01/03/17 14:34 01/03/17 11:31 01/03/17 11:38 01/03/17 11:31 Plan Follow up with: [facility] [Provider Group] - 3-5 Days GAUTAM KIM MD [Staff Physician] - 3-5 Days ARTIS BONNER MD [Referring] - 3-5 Days LAWRENCE SMITH MD [Primary Care Provider] - 3-5 Days MICKIE CHEW MD [Staff Physician] - 3-5 Days ARLETTE LENZ MD [Staff Physician] - 7 Days Prescriptions: Hydrochlorothiazide [HCTZ] 25 mg PO DAILY #30 tablet levETIRAcetam [Keppra TAB] 750 mg PO BID #30 tablet oxyCODONE /ACETAMINOPHEN [Percocet 5/325 mg] 1 tab PO Q6H PRN #7 tablet PRN Reason: Pain, Moderate (4-6) <YULISSA BANUELOS - Last Filed: 01/04/17 08:20> Providers - Providers Date of Admission: 01/01/17 15:03 Date of discharge: 01/03/17 Attending physician: SHEEBA WEST 12/30/16 16:34 Consult to Mental Health [CONS] Urgent Reason For Exam: psych Place consult to:: rn imcu section gang Notified:: awaiting call back 01/02/17 01:08 Consult to Physician [CONS] Routine Consulting Provider: JENNY SYLVESTER Reason For Exam: Seizure disorder Place consult to:: Dr. Sylvester Notified:: Jacey ANGEL Phone number called:: Was contact made?: Yes If yes, [facility] Time called:: 07:51 01/02/17 13:56 Physical Therapy Evaluation and Treat [CONS] Routine Comment: Reason For Exam: Eval/treat, assess gait/strength 01/02/17 15:01 Consult to Dietitian/Nutrition [CONS] Routine Physician Instructions: Reason For Exam: Reason for Consult: Malnutrition Primary care physician: WEIGHT LOSS CONSULTANT Hospitalization Reason for admission: seizure Hospital course: Patient is a 66 years old female with past medical history of seizure and schizophrenia who presented to the emergency department for seizures. Patient was diagnosed with Acute encephalopathy, Seizure disorder, Hypertension, Psychosis, Social issues and Medical Noncompliance. CT of the head no acute intracranial process. Cervical spine unremarkable. ECGs shows normal sinus rythm. CXR WNL. Patient presented with Seizure breakthrough secondary to medication noncompliance. Acute encephalopathy due to postictal state. Patient advised to get EEG as outpatient. She was treated with anticonvulsant, IV fluid hydration, and antihypertensive medications. Patient is clinically improved. Patient advised to follow-up with neurology. Patient homeless [facility] a [facility]. Discharge Diagnosed Acute encephalopathy secondary to seizure, postictal state. Hypertension Psychosis Social issues Patient needs placement, spoke with case management Medical Noncompliance Core Measure Documentation - Palliative Care Palliative Care/ Comfort Measures: Not Applicable - Core Measures Any of the following diagnoses?: none Exam - Constitutional Vitals: Temp Pulse Resp BP Pulse Ox 98.4 F 65 18 154/66 98 01/03/17 04:26 01/03/17 04:26 01/03/17 04:26 01/03/17 04:26 01/03/17 04:26 General appearance: Present: no acute distress - EENT Eyes: Present: PERRL ENT: hearing intact - Neck Neck: Present: supple - Respiratory Respiratory effort: normal Respiratory: bilateral: CTA - Cardiovascular Rhythm: regular Heart Sounds: Present: S1 & S2 - Abdominal General gastrointestinal: Present: soft, non-tender Female genitourinary: Present: deferred - Rectal Rectal Exam: deferred - Integumentary Integumentary: Present: clear, warm, dry - Musculoskeletal Musculoskeletal: strength equal bilaterally - Psychiatric Psychiatric: appropriate mood/affect - Neurologic Neurologic: moves all extremities - Allied Health Allied health notes reviewed: nursing Plan Activity: fall precautions Diet: low fat, low cholesterol, low salt
--- NOTE | 2017-01-03 16:59 | Consultation ---
History of Present Illness - Reason for Consult Consult date: 01/03/17 Reason for consult: Mental Health Evaluation Requesting physician: MARTA CLIFFORD - Chief Complaint Chief complaint: "I am homeless" - History of Present Psychiatric Illness 66 y.o. female presenting to [facility] for possible seizures. Psychiatry was consulted because patient may have a hx of schizophrenia. Today patient is calm and cooperative during the assessment. She stated that she does not have a mental health dx. When asked about medication for schizophrenia she denies taking any. She stated that she has seizures. She was able to tell me that she takes Keppra BID and the dose. She stated when she have a seizure she feels "tired" once it's over. She is adamant about being homeless. She stated that she was residing in [place] [facility], possibly a half-way prior to her admission to the hospital. She denies SI/HI's and AVH's. She denies having manic episodes in the pass. She denies being depressed. Per the staff, patient is completing her ADL's and eating all her meals. Per a previous note, patient was inpatient at [place] 06/2016 and transferred to [facility] for seizure activity. She did admit to being a patient there during that time. She denies recreational drug use and alcohol consumption (etoh). She stated that she is estranged from her 2 children. Medications and Allergies Allergies Allergy/AdvReac Type Severity Reaction Status Date / Time No Known Allergies Allergy Unverified 07/12/16 21:03 Home Medications Medication Instructions Recorded Confirmed Last Taken Type Meloxicam [Mobic] 7.5 mg PO DAILY 12/30/16 12/30/16 Unknown History Hydrochlorothiazide [HCTZ] 25 mg PO DAILY #30 tablet 01/03/17 Unknown Rx levETIRAcetam [Keppra TAB] 750 mg PO BID #30 tablet 01/03/17 Unknown Rx oxyCODONE /ACETAMINOPHEN [Percocet 1 tab PO Q6H PRN #7 tablet 01/03/17 Unknown Rx 5/325 mg] Active Meds: Active Medications Acetaminophen (Tylenol) 650 mg PO Q4H PRN PRN Reason: Pain MILD(1-3)/Fever >100.5/DOMÍNGUEZ Bisacodyl (Dulcolax) 10 mg [place] QDAY PRN PRN Reason: Constipation unrelieved by MOM Hydrochlorothiazide (Hctz) 25 mg PO DAILY [facility] Last Admin: 01/03/17 09:54 Dose: 25 mg Dextrose/Sodium Chloride (D5ns) 1,000 mls @ 100 mls/hr IV DIRECT DAVE Levetiracetam (Keppra) 750 mg PO BID [facility] Last Admin: 01/03/17 09:52 Dose: 750 mg Magnesium Hydroxide (Milk Of Magnesia) 30 ml PO Q4H PRN PRN Reason: Constipation Meloxicam (Mobic) 7.5 mg PO DAILY [facility] Last Admin: 01/03/17 09:53 Dose: 7.5 mg Morphine Sulfate (Morphine) 2 mg IV Q4H PRN PRN Reason: Pain, Moderate (4-6) Ondansetron HCl (Zofran) 4 mg IV Q8H PRN PRN Reason: N/V unrelieved by Reglan Oxycodone/Acetaminophen (Percocet 5/325) 1 tab PO Q6H PRN PRN Reason: Pain, Moderate (4-6) Past psychiatric history - Past Medical History Past Medical History: seizures Past Surgical History: No surgical history - past Psychiatric treatment and history Psych: Schizophrenia psychiatric treatment history: Per the previous admission, inpatient at [facility]. Denies a fam psy hx. - Social History Social history: other (Homeless) Mental Status Exam - Vital signs Last Vital Signs Temp 98.9 F 01/03/17 11:38 Pulse 75 01/03/17 14:34 Resp 18 01/03/17 11:31 BP 145/65 01/03/17 11:38 Pulse Ox 98 01/03/17 11:31 - Exam Narrative exam: MSE: Appearance: calm, cooperative Behavior: regular eye contact Speech: regular rate and tone Mood: "fine" Affect: congruent to mood Thought Process: linear Thought Content: denies SI/HI's and AVH's Motor Activity: lying in bed Cognition: A/Ox 3 Insight: fair Judgment: fair Results Result Diagrams: 01/03/17 04:44 01/03/17 04:44 Abnormal lab results 01/03/17 01/03/17 Range/Units 04:44 04:44 Seg Neuts % (Manual) 33.0 L (40.0-70.0) % Lymphocytes % (Manual) 63.0 H (13.4-35.0) % Potassium 3.4 L (3.6-5.0) mmol/L Creatinine 0.6 L (0.7-1.2) mg/dL All other labs normal. Assessment and Plan Assessment and plan: Impression: Today patient is calm and cooperative during the assessment. No acute psychosis present during the assessment. Patient is homeless. Recommendation/Plan: Offered outpatient psy services to patient because of her prior placement to inpatient psy services at [facility]. She refused. Commercial Credit Specialist involvement, patient will need placement. Psychiatry signoff this patient.
--- NOTE | 2017-01-03 18:35 | Progress Note ---
<YULISSA BANUELOS - Last Filed: 01/04/17 08:23> Assessment and Plan Assessment and plan: Patient is a 66 years old female with past medical history of seizure and schizophrenia who presented to the emergency department for seizures. Acute encephalopathy Resolved secondary to seizure, postictal state. CT of the head and cervical spine unremarkable. Seizure precautions Disposition, Patient will be discharge today, awaiting for mcc placement Seizure disorder breakthrough seizure secondary to medication noncompliance. Continue on oral Keppera Frequent neuro checks. We will obtain EEG Ativan when necessary Oxygen supplement when necessary Implement seizure precautions Neurology consulted Supportive care Hypertension Resume home antihypertensive medication Hydralazine for SBP>160 Closely monitor blood pressure Psychosis Mental health consulted Social issues Patient needs placement, spoke with case management Medical Noncompliance Patient noncompliance with Keppra Counseled to improve compliance DVT prophylaxis Lovenox History Interval history: Patient denies chest pain, shortness of breath, no episode of seizure. Labs and nursing notes reviewed. Hospitalist Physical - Constitutional Vitals: Temp Pulse Resp BP Pulse Ox 98.6 F 65 18 130/75 96 01/04/17 07:15 01/04/17 07:15 01/04/17 07:15 01/04/17 07:15 01/04/17 07:15 General appearance: Present: no acute distress - EENT Eyes: Present: PERRL ENT: hearing intact - Neck Neck: Present: supple - Respiratory Respiratory effort: normal Respiratory: bilateral: CTA - Cardiovascular Rhythm: regular Heart Sounds: Present: S1 & S2 - Abdominal General gastrointestinal: soft, non-tender - Integumentary Integumentary: Present: clear, warm, dry - Psychiatric Psychiatric: appropriate mood/affect - Neurologic Neurologic: moves all extremities - Allied Health Allied health notes reviewed: nursing Results - Labs CBC & Chem 7: 01/03/17 04:44 01/03/17 04:44 Labs: Laboratory Last Values WBC 7.3 K/mm3 (4.5-11.0) 01/03/17 04:44 RBC 4.20 M/mm3 (3.65-5.03) 01/03/17 04:44 Hgb 13.1 gm/dl (10.1-14.3) 01/03/17 04:44 Hct 38.6 % (30.3-42.9) 01/03/17 04:44 MCV 92 fl (79-97) 01/03/17 04:44 MCH 31 pg (28-32) 01/03/17 04:44 MCHC 34 % (30-34) 01/03/17 04:44 RDW 14.0 % (13.2-15.2) 01/03/17 04:44 Plt Count 162 K/mm3 (140-440) 01/03/17 04:44 Lymph % (Auto) 50.1 % (13.4-35.0) H 01/02/17 04:42 [place] % (Auto) 8.0 % (0.0-7.3) H 01/02/17 04:42 Eos % (Auto) 1.7 % (0.0-4.3) 01/02/17 04:42 Baso % (Auto) 0.3 % (0.0-1.8) 01/02/17 04:42 Lymph # 3.8 K/mm3 (1.2-5.4) 01/02/17 04:42 [place] # 0.6 K/mm3 (0.0-0.8) 01/02/17 04:42 Eos # 0.1 K/mm3 (0.0-0.4) 01/02/17 04:42 Baso # 0.0 K/mm3 (0.0-0.1) 01/02/17 04:42 Add Manual Diff Complete 01/03/17 04:44 Total Counted 100 01/03/17 04:44 Seg Neutrophils % Food Handler 01/03/17 04:44 Seg Neuts % (Manual) 33.0 % (40.0-70.0) L 01/03/17 04:44 Band Neutrophils % 0 % 01/03/17 04:44 Lymphocytes % (Manual) 63.0 % (13.4-35.0) H 01/03/17 04:44 Reactive Lymphs % (Man) 2.0 % 01/03/17 04:44 Monocytes % (Manual) 1.0 % (0.0-7.3) 01/03/17 04:44 Eosinophils % (Manual) 1.0 % (0.0-4.3) 01/03/17 04:44 Basophils % (Manual) 0 % (0.0-1.8) 01/03/17 04:44 Metamyelocytes % 0 % 01/03/17 04:44 Myelocytes % 0 % 01/03/17 04:44 Promyelocytes % 0 % 01/03/17 04:44 Blast Cells % 0 % 01/03/17 04:44 Nucleated RBC % Not Reportable 01/03/17 04:44 Seg Neutrophils # 3.0 K/mm3 (1.8-7.7) 01/02/17 04:42 Seg Neutrophils # Man 2.4 K/mm3 (1.8-7.7) 01/03/17 04:44 Band Neutrophils # 0.0 K/mm3 01/03/17 04:44 Lymphocytes # (Manual) 4.6 K/mm3 (1.2-5.4) 01/03/17 04:44 Abs React Lymphs (Man) 0.1 K/mm3 01/03/17 04:44 Monocytes # (Manual) 0.1 K/mm3 (0.0-0.8) 01/03/17 04:44 Eosinophils # (Manual) 0.1 K/mm3 (0.0-0.4) 01/03/17 04:44 Basophils # (Manual) 0.0 K/mm3 (0.0-0.1) 01/03/17 04:44 Metamyelocytes # 0.0 K/mm3 01/03/17 04:44 Myelocytes # 0.0 K/mm3 01/03/17 04:44 Promyelocytes # 0.0 K/mm3 01/03/17 04:44 Blast Cells # 0.0 K/mm3 01/03/17 04:44 WBC Morphology Not Reportable 01/03/17 04:44 Hypersegmented Neuts Not Reportable 01/03/17 04:44 Hyposegmented Neuts Not Reportable 01/03/17 04:44 Hypogranular Neuts Not Reportable 01/03/17 04:44 Smudge Cells Not Reportable 01/03/17 04:44 Toxic Granulation Not Reportable 01/03/17 04:44 Toxic Vacuolation Not Reportable 01/03/17 04:44 Dohle Bodies Not Reportable 01/03/17 04:44 Pelger-Huet Anomaly Not Reportable 01/03/17 04:44 Rylee Rods Not Reportable 01/03/17 04:44 Platelet Estimate Consistent w auto 01/03/17 04:44 Clumped Platelets Not Reportable 01/03/17 04:44 Plt Clumps, EDTA Not Reportable 01/03/17 04:44 Large Platelets Not Reportable 01/03/17 04:44 Giant Platelets Not Reportable 01/03/17 04:44 Platelet Satelliting Not Reportable 01/03/17 04:44 Plt Morphology Comment Not Reportable 01/03/17 04:44 RBC Morphology Not Reportable 01/03/17 04:44 Dimorphic RBCs Not Reportable 01/03/17 04:44 Polychromasia Not Reportable 01/03/17 04:44 Hypochromasia Not Reportable 01/03/17 04:44 Poikilocytosis Not Reportable 01/03/17 04:44 Anisocytosis Not Reportable 01/03/17 04:44 Microcytosis Not Reportable 01/03/17 04:44 Macrocytosis Not Reportable 01/03/17 04:44 Spherocytes Not Reportable 01/03/17 04:44 Pappenheimer Bodies Not Reportable 01/03/17 04:44 Sickle Cells Not Reportable 01/03/17 04:44 Target Cells Not Reportable 01/03/17 04:44 Tear Drop Cells Not Reportable 01/03/17 04:44 Ovalocytes Not Reportable 01/03/17 04:44 Helmet Cells Not Reportable 01/03/17 04:44 [place] Bodies Not Reportable 01/03/17 04:44 [place] Rings Not Reportable 01/03/17 04:44 [place] Cells Not Reportable 01/03/17 04:44 Bite Cells Not Reportable 01/03/17 04:44 Crenated Cell Not Reportable 01/03/17 04:44 Elliptocytes Not Reportable 01/03/17 04:44 Acanthocytes (Spur) Not Reportable 01/03/17 04:44 Rouleaux Not Reportable 01/03/17 04:44 Hemoglobin C Crystals Not Reportable 01/03/17 04:44 Schistocytes Not Reportable 01/03/17 04:44 Malaria parasites Not Reportable 01/03/17 04:44 Ruddy Bodies Not Reportable 01/03/17 04:44 Hem Pathologist Commnt No 01/03/17 04:44 Sodium 140 mmol/L (137-145) 01/03/17 04:44 Potassium 3.4 mmol/L (3.6-5.0) L 01/03/17 04:44 Chloride 102.2 mmol/L (98-107) 01/03/17 04:44 Carbon Dioxide 28 mmol/L (22-30) 01/03/17 04:44 Anion Gap 13 mmol/L 01/03/17 04:44 BUN 15 mg/dL (7-17) 01/03/17 04:44 Creatinine 0.6 mg/dL (0.7-1.2) L 01/03/17 04:44 Estimated GFR > 60 ml/min 01/03/17 04:44 BUN/Creatinine Ratio 25 % 01/03/17 04:44 Glucose 88 mg/dL (65-100) 01/03/17 04:44 Calcium 8.8 mg/dL (8.4-10.2) 01/03/17 04:44 Magnesium 2.10 mg/dL (1.7-2.3) 01/02/17 17:31 Total Bilirubin 0.30 mg/dL (0.1-1.2) 01/02/17 04:42 AST 14 units/L (5-40) 01/02/17 04:42 ALT 13 units/L (7-56) 01/02/17 04:42 Alkaline Phosphatase 93 units/L (35-129) 01/02/17 04:42 Total Creatine Kinase 335 units/L (30-135) H 12/30/16 16:44 Total Protein 6.7 g/dL (6.3-8.2) 01/02/17 04:42 Albumin 3.8 g/dL (3.9-5) L 01/02/17 04:42 Albumin/Globulin Ratio 1.3 % 01/02/17 04:42 Urine Color Straw (Yellow) 12/30/16 17:08 Urine Turbidity Clear (Clear) 12/30/16 17:08 Urine pH 7.0 (5.0-7.0) 12/30/16 17:08 Ur Specific [place] 1.010 (1.003-1.030) 12/30/16 17:08 Urine Protein <15 mg/dl mg/dL (Negative) 12/30/16 17:08 Urine Glucose (UA) Neg mg/dL (Negative) 12/30/16 17:08 Urine Ketones Neg mg/dL (Negative) 12/30/16 17:08 Urine Blood Neg (Negative) 12/30/16 17:08 Urine Nitrite Neg (Negative) 12/30/16 17:08 Urine Bilirubin Neg (Negative) 12/30/16 17:08 Urine Urobilinogen < 2.0 mg/dL (<2.0) 12/30/16 17:08 Ur Leukocyte Esterase Neg (Negative) 12/30/16 17:08 Urine WBC (Auto) 0.0 /HPF (0.0-6.0) 12/30/16 17:08 Urine RBC (Auto) 1.0 /HPF (0.0-6.0) 12/30/16 17:08 U Epithel Cells (Auto) < 1.0 /HPF (0-13.0) 12/30/16 17:08 Salicylates < 0.3 mg/dL (2.8-20.0) L 12/30/16 16:44 Acetaminophen < 15.0 ug/mL (10.0-30.0) 12/30/16 16:44 <SHEEBA WEST - Last Filed: 01/04/17 18:49> Hospitalist Physical - Constitutional Vitals: Temp Pulse Resp BP Pulse Ox 98.7 F 73 18 146/69 98 01/03/17 17:27 01/03/17 17:27 01/03/17 17:27 01/03/17 17:27 01/03/17 17:27 General appearance: Present: no acute distress Results - Labs CBC & Chem 7: 01/03/17 04:44 01/03/17 04:44 Labs: Laboratory Last Values WBC 7.3 K/mm3 (4.5-11.0) 01/03/17 04:44 RBC 4.20 M/mm3 (3.65-5.03) 01/03/17 04:44 Hgb 13.1 gm/dl (10.1-14.3) 01/03/17 04:44 Hct 38.6 % (30.3-42.9) 01/03/17 04:44 MCV 92 fl (79-97) 01/03/17 04:44 MCH 31 pg (28-32) 01/03/17 04:44 MCHC 34 % (30-34) 01/03/17 04:44 RDW 14.0 % (13.2-15.2) 01/03/17 04:44 Plt Count 162 K/mm3 (140-440) 01/03/17 04:44 Lymph % (Auto) 50.1 % (13.4-35.0) H 01/02/17 04:42 [place] % (Auto) 8.0 % (0.0-7.3) H 01/02/17 04:42 Eos % (Auto) 1.7 % (0.0-4.3) 01/02/17 04:42 Baso % (Auto) 0.3 % (0.0-1.8) 01/02/17 04:42 Lymph # 3.8 K/mm3 (1.2-5.4) 01/02/17 04:42 [place] # 0.6 K/mm3 (0.0-0.8) 01/02/17 04:42 Eos # 0.1 K/mm3 (0.0-0.4) 01/02/17 04:42 Baso # 0.0 K/mm3 (0.0-0.1) 01/02/17 04:42 Add Manual Diff Complete 01/03/17 04:44 Total Counted 100 01/03/17 04:44 Seg Neutrophils % Food Handler 01/03/17 04:44 Seg Neuts % (Manual) 33.0 % (40.0-70.0) L 01/03/17 04:44 Band Neutrophils % 0 % 01/03/17 04:44 Lymphocytes % (Manual) 63.0 % (13.4-35.0) H 01/03/17 04:44 Reactive Lymphs % (Man) 2.0 % 01/03/17 04:44 Monocytes % (Manual) 1.0 % (0.0-7.3) 01/03/17 04:44 Eosinophils % (Manual) 1.0 % (0.0-4.3) 01/03/17 04:44 Basophils % (Manual) 0 % (0.0-1.8) 01/03/17 04:44 Metamyelocytes % 0 % 01/03/17 04:44 Myelocytes % 0 % 01/03/17 04:44 Promyelocytes % 0 % 01/03/17 04:44 Blast Cells % 0 % 01/03/17 04:44 Nucleated RBC % Not Reportable 01/03/17 04:44 Seg Neutrophils # 3.0 K/mm3 (1.8-7.7) 01/02/17 04:42 Seg Neutrophils # Man 2.4 K/mm3 (1.8-7.7) 01/03/17 04:44 Band Neutrophils # 0.0 K/mm3 01/03/17 04:44 Lymphocytes # (Manual) 4.6 K/mm3 (1.2-5.4) 01/03/17 04:44 Abs React Lymphs (Man) 0.1 K/mm3 01/03/17 04:44 Monocytes # (Manual) 0.1 K/mm3 (0.0-0.8) 01/03/17 04:44 Eosinophils # (Manual) 0.1 K/mm3 (0.0-0.4) 01/03/17 04:44 Basophils # (Manual) 0.0 K/mm3 (0.0-0.1) 01/03/17 04:44 Metamyelocytes # 0.0 K/mm3 01/03/17 04:44 Myelocytes # 0.0 K/mm3 01/03/17 04:44 Promyelocytes # 0.0 K/mm3 01/03/17 04:44 Blast Cells # 0.0 K/mm3 01/03/17 04:44 WBC Morphology Not Reportable 01/03/17 04:44 Hypersegmented Neuts Not Reportable 01/03/17 04:44 Hyposegmented Neuts Not Reportable 01/03/17 04:44 Hypogranular Neuts Not Reportable 01/03/17 04:44 Smudge Cells Not Reportable 01/03/17 04:44 Toxic Granulation Not Reportable 01/03/17 04:44 Toxic Vacuolation Not Reportable 01/03/17 04:44 Dohle Bodies Not Reportable 01/03/17 04:44 Pelger-Huet Anomaly Not Reportable 01/03/17 04:44 Rylee Rods Not Reportable 01/03/17 04:44 Platelet Estimate Consistent w auto 01/03/17 04:44 Clumped Platelets Not Reportable 01/03/17 04:44 Plt Clumps, EDTA Not Reportable 01/03/17 04:44 Large Platelets Not Reportable 01/03/17 04:44 Giant Platelets Not Reportable 01/03/17 04:44 Platelet Satelliting Not Reportable 01/03/17 04:44 Plt Morphology Comment Not Reportable 01/03/17 04:44 RBC Morphology Not Reportable 01/03/17 04:44 Dimorphic RBCs Not Reportable 01/03/17 04:44 Polychromasia Not Reportable 01/03/17 04:44 Hypochromasia Not Reportable 01/03/17 04:44 Poikilocytosis Not Reportable 01/03/17 04:44 Anisocytosis Not Reportable 01/03/17 04:44 Microcytosis Not Reportable 01/03/17 04:44 Macrocytosis Not Reportable 01/03/17 04:44 Spherocytes Not Reportable 01/03/17 04:44 Pappenheimer Bodies Not Reportable 01/03/17 04:44 Sickle Cells Not Reportable 01/03/17 04:44 Target Cells Not Reportable 01/03/17 04:44 Tear Drop Cells Not Reportable 01/03/17 04:44 Ovalocytes Not Reportable 01/03/17 04:44 Helmet Cells Not Reportable 01/03/17 04:44 [place] Bodies Not Reportable 01/03/17 04:44 [place] Rings Not Reportable 01/03/17 04:44 [place] Cells Not Reportable 01/03/17 04:44 Bite Cells Not Reportable 01/03/17 04:44 Crenated Cell Not Reportable 01/03/17 04:44 Elliptocytes Not Reportable 01/03/17 04:44 Acanthocytes (Spur) Not Reportable 01/03/17 04:44 Rouleaux Not Reportable 01/03/17 04:44 Hemoglobin C Crystals Not Reportable 01/03/17 04:44 Schistocytes Not Reportable 01/03/17 04:44 Malaria parasites Not Reportable 01/03/17 04:44 Ruddy Bodies Not Reportable 01/03/17 04:44 Hem Pathologist Commnt No 01/03/17 04:44 Sodium 140 mmol/L (137-145) 01/03/17 04:44 Potassium 3.4 mmol/L (3.6-5.0) L 01/03/17 04:44 Chloride 102.2 mmol/L (98-107) 01/03/17 04:44 Carbon Dioxide 28 mmol/L (22-30) 01/03/17 04:44 Anion Gap 13 mmol/L 01/03/17 04:44 BUN 15 mg/dL (7-17) 01/03/17 04:44 Creatinine 0.6 mg/dL (0.7-1.2) L 01/03/17 04:44 Estimated GFR > 60 ml/min 01/03/17 04:44 BUN/Creatinine Ratio 25 % 01/03/17 04:44 Glucose 88 mg/dL (65-100) 01/03/17 04:44 Calcium 8.8 mg/dL (8.4-10.2) 01/03/17 04:44 Magnesium 2.10 mg/dL (1.7-2.3) 01/02/17 17:31 Total Bilirubin 0.30 mg/dL (0.1-1.2) 01/02/17 04:42 AST 14 units/L (5-40) 01/02/17 04:42 ALT 13 units/L (7-56) 01/02/17 04:42 Alkaline Phosphatase 93 units/L (35-129) 01/02/17 04:42 Total Creatine Kinase 335 units/L (30-135) H 12/30/16 16:44 Total Protein 6.7 g/dL (6.3-8.2) 01/02/17 04:42 Albumin 3.8 g/dL (3.9-5) L 01/02/17 04:42 Albumin/Globulin Ratio 1.3 % 01/02/17 04:42 Urine Color Straw (Yellow) 12/30/16 17:08 Urine Turbidity Clear (Clear) 12/30/16 17:08 Urine pH 7.0 (5.0-7.0) 12/30/16 17:08 Ur Specific [place] 1.010 (1.003-1.030) 12/30/16 17:08 Urine Protein <15 mg/dl mg/dL (Negative) 12/30/16 17:08 Urine Glucose (UA) Neg mg/dL (Negative) 12/30/16 17:08 Urine Ketones Neg mg/dL (Negative) 12/30/16 17:08 Urine Blood Neg (Negative) 12/30/16 17:08 Urine Nitrite Neg (Negative) 12/30/16 17:08 Urine Bilirubin Neg (Negative) 12/30/16 17:08 Urine Urobilinogen < 2.0 mg/dL (<2.0) 12/30/16 17:08 Ur Leukocyte Esterase Neg (Negative) 12/30/16 17:08 Urine WBC (Auto) 0.0 /HPF (0.0-6.0) 12/30/16 17:08 Urine RBC (Auto) 1.0 /HPF (0.0-6.0) 12/30/16 17:08 U Epithel Cells (Auto) < 1.0 /HPF (0-13.0) 12/30/16 17:08 Salicylates < 0.3 mg/dL (2.8-20.0) L 12/30/16 16:44 Acetaminophen < 15.0 ug/mL (10.0-30.0) 12/30/16 16:44
--- NOTE | 2017-01-04 08:20 | Progress Note ---
Hospitalist Physical - Constitutional Vitals: Temp Pulse Resp BP Pulse Ox 98.6 F 65 18 130/75 96 01/04/17 07:15 01/04/17 07:15 01/04/17 07:15 01/04/17 07:15 01/04/17 07:15 General appearance: Present: no acute distress Results - Labs CBC & Chem 7: 01/03/17 04:44 01/03/17 04:44 Labs: Laboratory Last Values WBC 7.3 K/mm3 (4.5-11.0) 01/03/17 04:44 RBC 4.20 M/mm3 (3.65-5.03) 01/03/17 04:44 Hgb 13.1 gm/dl (10.1-14.3) 01/03/17 04:44 Hct 38.6 % (30.3-42.9) 01/03/17 04:44 MCV 92 fl (79-97) 01/03/17 04:44 MCH 31 pg (28-32) 01/03/17 04:44 MCHC 34 % (30-34) 01/03/17 04:44 RDW 14.0 % (13.2-15.2) 01/03/17 04:44 Plt Count 162 K/mm3 (140-440) 01/03/17 04:44 Lymph % (Auto) 50.1 % (13.4-35.0) H 01/02/17 04:42 [place] % (Auto) 8.0 % (0.0-7.3) H 01/02/17 04:42 Eos % (Auto) 1.7 % (0.0-4.3) 01/02/17 04:42 Baso % (Auto) 0.3 % (0.0-1.8) 01/02/17 04:42 Lymph # 3.8 K/mm3 (1.2-5.4) 01/02/17 04:42 [place] # 0.6 K/mm3 (0.0-0.8) 01/02/17 04:42 Eos # 0.1 K/mm3 (0.0-0.4) 01/02/17 04:42 Baso # 0.0 K/mm3 (0.0-0.1) 01/02/17 04:42 Add Manual Diff Complete 01/03/17 04:44 Total Counted 100 01/03/17 04:44 Seg Neutrophils % Glove Operator 01/03/17 04:44 Seg Neuts % (Manual) 33.0 % (40.0-70.0) L 01/03/17 04:44 Band Neutrophils % 0 % 01/03/17 04:44 Lymphocytes % (Manual) 63.0 % (13.4-35.0) H 01/03/17 04:44 Reactive Lymphs % (Man) 2.0 % 01/03/17 04:44 Monocytes % (Manual) 1.0 % (0.0-7.3) 01/03/17 04:44 Eosinophils % (Manual) 1.0 % (0.0-4.3) 01/03/17 04:44 Basophils % (Manual) 0 % (0.0-1.8) 01/03/17 04:44 Metamyelocytes % 0 % 01/03/17 04:44 Myelocytes % 0 % 01/03/17 04:44 Promyelocytes % 0 % 01/03/17 04:44 Blast Cells % 0 % 01/03/17 04:44 Nucleated RBC % Not Reportable 01/03/17 04:44 Seg Neutrophils # 3.0 K/mm3 (1.8-7.7) 01/02/17 04:42 Seg Neutrophils # Man 2.4 K/mm3 (1.8-7.7) 01/03/17 04:44 Band Neutrophils # 0.0 K/mm3 01/03/17 04:44 Lymphocytes # (Manual) 4.6 K/mm3 (1.2-5.4) 01/03/17 04:44 Abs React Lymphs (Man) 0.1 K/mm3 01/03/17 04:44 Monocytes # (Manual) 0.1 K/mm3 (0.0-0.8) 01/03/17 04:44 Eosinophils # (Manual) 0.1 K/mm3 (0.0-0.4) 01/03/17 04:44 Basophils # (Manual) 0.0 K/mm3 (0.0-0.1) 01/03/17 04:44 Metamyelocytes # 0.0 K/mm3 01/03/17 04:44 Myelocytes # 0.0 K/mm3 01/03/17 04:44 Promyelocytes # 0.0 K/mm3 01/03/17 04:44 Blast Cells # 0.0 K/mm3 01/03/17 04:44 WBC Morphology Not Reportable 01/03/17 04:44 Hypersegmented Neuts Not Reportable 01/03/17 04:44 Hyposegmented Neuts Not Reportable 01/03/17 04:44 Hypogranular Neuts Not Reportable 01/03/17 04:44 Smudge Cells Not Reportable 01/03/17 04:44 Toxic Granulation Not Reportable 01/03/17 04:44 Toxic Vacuolation Not Reportable 01/03/17 04:44 Dohle Bodies Not Reportable 01/03/17 04:44 Pelger-Huet Anomaly Not Reportable 01/03/17 04:44 Rylee Rods Not Reportable 01/03/17 04:44 Platelet Estimate Consistent w auto 01/03/17 04:44 Clumped Platelets Not Reportable 01/03/17 04:44 Plt Clumps, EDTA Not Reportable 01/03/17 04:44 Large Platelets Not Reportable 01/03/17 04:44 Giant Platelets Not Reportable 01/03/17 04:44 Platelet Satelliting Not Reportable 01/03/17 04:44 Plt Morphology Comment Not Reportable 01/03/17 04:44 RBC Morphology Not Reportable 01/03/17 04:44 Dimorphic RBCs Not Reportable 01/03/17 04:44 Polychromasia Not Reportable 01/03/17 04:44 Hypochromasia Not Reportable 01/03/17 04:44 Poikilocytosis Not Reportable 01/03/17 04:44 Anisocytosis Not Reportable 01/03/17 04:44 Microcytosis Not Reportable 01/03/17 04:44 Macrocytosis Not Reportable 01/03/17 04:44 Spherocytes Not Reportable 01/03/17 04:44 Pappenheimer Bodies Not Reportable 01/03/17 04:44 Sickle Cells Not Reportable 01/03/17 04:44 Target Cells Not Reportable 01/03/17 04:44 Tear Drop Cells Not Reportable 01/03/17 04:44 Ovalocytes Not Reportable 01/03/17 04:44 Helmet Cells Not Reportable 01/03/17 04:44 [place] Bodies Not Reportable 01/03/17 04:44 [place] Rings Not Reportable 01/03/17 04:44 [place] Cells Not Reportable 01/03/17 04:44 Bite Cells Not Reportable 01/03/17 04:44 Crenated Cell Not Reportable 01/03/17 04:44 Elliptocytes Not Reportable 01/03/17 04:44 Acanthocytes (Spur) Not Reportable 01/03/17 04:44 Rouleaux Not Reportable 01/03/17 04:44 Hemoglobin C Crystals Not Reportable 01/03/17 04:44 Schistocytes Not Reportable 01/03/17 04:44 Malaria parasites Not Reportable 01/03/17 04:44 Ruddy Bodies Not Reportable 01/03/17 04:44 Hem Pathologist Commnt No 01/03/17 04:44 Sodium 140 mmol/L (137-145) 01/03/17 04:44 Potassium 3.4 mmol/L (3.6-5.0) L 01/03/17 04:44 Chloride 102.2 mmol/L (98-107) 01/03/17 04:44 Carbon Dioxide 28 mmol/L (22-30) 01/03/17 04:44 Anion Gap 13 mmol/L 01/03/17 04:44 BUN 15 mg/dL (7-17) 01/03/17 04:44 Creatinine 0.6 mg/dL (0.7-1.2) L 01/03/17 04:44 Estimated GFR > 60 ml/min 01/03/17 04:44 BUN/Creatinine Ratio 25 % 01/03/17 04:44 Glucose 88 mg/dL (65-100) 01/03/17 04:44 Calcium 8.8 mg/dL (8.4-10.2) 01/03/17 04:44 Magnesium 2.10 mg/dL (1.7-2.3) 01/02/17 17:31 Total Bilirubin 0.30 mg/dL (0.1-1.2) 01/02/17 04:42 AST 14 units/L (5-40) 01/02/17 04:42 ALT 13 units/L (7-56) 01/02/17 04:42 Alkaline Phosphatase 93 units/L (35-129) 01/02/17 04:42 Total Creatine Kinase 335 units/L (30-135) H 12/30/16 16:44 Total Protein 6.7 g/dL (6.3-8.2) 01/02/17 04:42 Albumin 3.8 g/dL (3.9-5) L 01/02/17 04:42 Albumin/Globulin Ratio 1.3 % 01/02/17 04:42 Urine Color Straw (Yellow) 12/30/16 17:08 Urine Turbidity Clear (Clear) 12/30/16 17:08 Urine pH 7.0 (5.0-7.0) 12/30/16 17:08 Ur Specific [place] 1.010 (1.003-1.030) 12/30/16 17:08 Urine Protein <15 mg/dl mg/dL (Negative) 12/30/16 17:08 Urine Glucose (UA) Neg mg/dL (Negative) 12/30/16 17:08 Urine Ketones Neg mg/dL (Negative) 12/30/16 17:08 Urine Blood Neg (Negative) 12/30/16 17:08 Urine Nitrite Neg (Negative) 12/30/16 17:08 Urine Bilirubin Neg (Negative) 12/30/16 17:08 Urine Urobilinogen < 2.0 mg/dL (<2.0) 12/30/16 17:08 Ur Leukocyte Esterase Neg (Negative) 12/30/16 17:08 Urine WBC (Auto) 0.0 /HPF (0.0-6.0) 12/30/16 17:08 Urine RBC (Auto) 1.0 /HPF (0.0-6.0) 12/30/16 17:08 U Epithel Cells (Auto) < 1.0 /HPF (0-13.0) 12/30/16 17:08 Salicylates < 0.3 mg/dL (2.8-20.0) L 12/30/16 16:44 Acetaminophen < 15.0 ug/mL (10.0-30.0) 12/30/16 16:44
[2017-01-04] MEDS: MOBIC PO SCH (09:03)
[2017-01-04] MEDS: HCTZ PO SCH (09:03)
[2017-01-04] MEDS: KEPPRA PO SCH ×2 (09:03→21:32)
--- NOTE | 2017-01-04 19:21 | Progress Note ---
Assessment and Plan Assessment and plan: --History of seizures; seizure precautions, antiepileptic medications, neurology following --Metabolic encephalopathy ; probably postictal, resolved --Hypertension; moderate control, continue current antihypertensives and when necessary medications --Acute psychosis; stable, follow psych upon discharge --Medical noncompliance; counseling done patient strongly advised to comply with medications. And follow-up visits --DC planning. Case management Awaiting placement Possible discharge in 1-2 days if placement is set up, History Interval history: Patient seen and examined No new complaints Awaiting placement Hospitalist Physical - Constitutional Vitals: Temp Pulse Resp BP Pulse Ox 98.1 F 72 18 126/68 98 01/04/17 16:11 01/04/17 16:43 01/04/17 16:11 01/04/17 16:11 01/04/17 16:11 General appearance: Present: no acute distress, well-nourished - EENT Eyes: Present: PERRL, EOM intact - Neck Neck: Present: supple, normal ROM - Respiratory Respiratory effort: normal Respiratory: bilateral: diminished, negative: rales, rhonchi, wheezing - Cardiovascular Rhythm: regular Heart Sounds: Present: S1 & S2 - Extremities Extremities: no ischemia, No edema Peripheral Pulses: within normal limits - Abdominal General gastrointestinal: deferred, non-tender - Integumentary Integumentary: Present: clear, warm - Psychiatric Psychiatric: appropriate mood/affect, other (slow speech) - Neurologic Neurologic: moves all extremities Results - Labs CBC & Chem 7: 01/03/17 04:44 01/03/17 04:44 Labs: Laboratory Last Values WBC 7.3 K/mm3 (4.5-11.0) 01/03/17 04:44 RBC 4.20 M/mm3 (3.65-5.03) 01/03/17 04:44 Hgb 13.1 gm/dl (10.1-14.3) 01/03/17 04:44 Hct 38.6 % (30.3-42.9) 01/03/17 04:44 MCV 92 fl (79-97) 01/03/17 04:44 MCH 31 pg (28-32) 01/03/17 04:44 MCHC 34 % (30-34) 01/03/17 04:44 RDW 14.0 % (13.2-15.2) 01/03/17 04:44 Plt Count 162 K/mm3 (140-440) 01/03/17 04:44 Lymph % (Auto) 50.1 % (13.4-35.0) H 01/02/17 04:42 [place] % (Auto) 8.0 % (0.0-7.3) H 01/02/17 04:42 Eos % (Auto) 1.7 % (0.0-4.3) 01/02/17 04:42 Baso % (Auto) 0.3 % (0.0-1.8) 01/02/17 04:42 Lymph # 3.8 K/mm3 (1.2-5.4) 01/02/17 04:42 [place] # 0.6 K/mm3 (0.0-0.8) 01/02/17 04:42 Eos # 0.1 K/mm3 (0.0-0.4) 01/02/17 04:42 Baso # 0.0 K/mm3 (0.0-0.1) 01/02/17 04:42 Add Manual Diff Complete 01/03/17 04:44 Total Counted 100 01/03/17 04:44 Seg Neutrophils % Foreign Language Interpreter 01/03/17 04:44 Seg Neuts % (Manual) 33.0 % (40.0-70.0) L 01/03/17 04:44 Band Neutrophils % 0 % 01/03/17 04:44 Lymphocytes % (Manual) 63.0 % (13.4-35.0) H 01/03/17 04:44 Reactive Lymphs % (Man) 2.0 % 01/03/17 04:44 Monocytes % (Manual) 1.0 % (0.0-7.3) 01/03/17 04:44 Eosinophils % (Manual) 1.0 % (0.0-4.3) 01/03/17 04:44 Basophils % (Manual) 0 % (0.0-1.8) 01/03/17 04:44 Metamyelocytes % 0 % 01/03/17 04:44 Myelocytes % 0 % 01/03/17 04:44 Promyelocytes % 0 % 01/03/17 04:44 Blast Cells % 0 % 01/03/17 04:44 Nucleated RBC % Not Reportable 01/03/17 04:44 Seg Neutrophils # 3.0 K/mm3 (1.8-7.7) 01/02/17 04:42 Seg Neutrophils # Man 2.4 K/mm3 (1.8-7.7) 01/03/17 04:44 Band Neutrophils # 0.0 K/mm3 01/03/17 04:44 Lymphocytes # (Manual) 4.6 K/mm3 (1.2-5.4) 01/03/17 04:44 Abs React Lymphs (Man) 0.1 K/mm3 01/03/17 04:44 Monocytes # (Manual) 0.1 K/mm3 (0.0-0.8) 01/03/17 04:44 Eosinophils # (Manual) 0.1 K/mm3 (0.0-0.4) 01/03/17 04:44 Basophils # (Manual) 0.0 K/mm3 (0.0-0.1) 01/03/17 04:44 Metamyelocytes # 0.0 K/mm3 01/03/17 04:44 Myelocytes # 0.0 K/mm3 01/03/17 04:44 Promyelocytes # 0.0 K/mm3 01/03/17 04:44 Blast Cells # 0.0 K/mm3 01/03/17 04:44 WBC Morphology Not Reportable 01/03/17 04:44 Hypersegmented Neuts Not Reportable 01/03/17 04:44 Hyposegmented Neuts Not Reportable 01/03/17 04:44 Hypogranular Neuts Not Reportable 01/03/17 04:44 Smudge Cells Not Reportable 01/03/17 04:44 Toxic Granulation Not Reportable 01/03/17 04:44 Toxic Vacuolation Not Reportable 01/03/17 04:44 Dohle Bodies Not Reportable 01/03/17 04:44 Pelger-Huet Anomaly Not Reportable 01/03/17 04:44 Rylee Rods Not Reportable 01/03/17 04:44 Platelet Estimate Consistent w auto 01/03/17 04:44 Clumped Platelets Not Reportable 01/03/17 04:44 Plt Clumps, EDTA Not Reportable 01/03/17 04:44 Large Platelets Not Reportable 01/03/17 04:44 Giant Platelets Not Reportable 01/03/17 04:44 Platelet Satelliting Not Reportable 01/03/17 04:44 Plt Morphology Comment Not Reportable 01/03/17 04:44 RBC Morphology Not Reportable 01/03/17 04:44 Dimorphic RBCs Not Reportable 01/03/17 04:44 Polychromasia Not Reportable 01/03/17 04:44 Hypochromasia Not Reportable 01/03/17 04:44 Poikilocytosis Not Reportable 01/03/17 04:44 Anisocytosis Not Reportable 01/03/17 04:44 Microcytosis Not Reportable 01/03/17 04:44 Macrocytosis Not Reportable 01/03/17 04:44 Spherocytes Not Reportable 01/03/17 04:44 Pappenheimer Bodies Not Reportable 01/03/17 04:44 Sickle Cells Not Reportable 01/03/17 04:44 Target Cells Not Reportable 01/03/17 04:44 Tear Drop Cells Not Reportable 01/03/17 04:44 Ovalocytes Not Reportable 01/03/17 04:44 Helmet Cells Not Reportable 01/03/17 04:44 Jules-[place] Bodies Not Reportable 01/03/17 04:44 [place] Rings Not Reportable 01/03/17 04:44 Maicol Cells Not Reportable 01/03/17 04:44 Bite Cells Not Reportable 01/03/17 04:44 Crenated Cell Not Reportable 01/03/17 04:44 Elliptocytes Not Reportable 01/03/17 04:44 Acanthocytes (Spur) Not Reportable 01/03/17 04:44 Rouleaux Not Reportable 01/03/17 04:44 Hemoglobin C Crystals Not Reportable 01/03/17 04:44 Schistocytes Not Reportable 01/03/17 04:44 Malaria parasites Not Reportable 01/03/17 04:44 Ruddy Bodies Not Reportable 01/03/17 04:44 Hem Pathologist Commnt No 01/03/17 04:44 Sodium 140 mmol/L (137-145) 01/03/17 04:44 Potassium 3.4 mmol/L (3.6-5.0) L 01/03/17 04:44 Chloride 102.2 mmol/L (98-107) 01/03/17 04:44 Carbon Dioxide 28 mmol/L (22-30) 01/03/17 04:44 Anion Gap 13 mmol/L 01/03/17 04:44 BUN 15 mg/dL (7-17) 01/03/17 04:44 Creatinine 0.6 mg/dL (0.7-1.2) L 01/03/17 04:44 Estimated GFR > 60 ml/min 01/03/17 04:44 BUN/Creatinine Ratio 25 % 01/03/17 04:44 Glucose 88 mg/dL (65-100) 01/03/17 04:44 Calcium 8.8 mg/dL (8.4-10.2) 01/03/17 04:44 Magnesium 2.10 mg/dL (1.7-2.3) 01/02/17 17:31 Total Bilirubin 0.30 mg/dL (0.1-1.2) 01/02/17 04:42 AST 14 units/L (5-40) 01/02/17 04:42 ALT 13 units/L (7-56) 01/02/17 04:42 Alkaline Phosphatase 93 units/L (35-129) 01/02/17 04:42 Total Creatine Kinase 335 units/L (30-135) H 12/30/16 16:44 Total Protein 6.7 g/dL (6.3-8.2) 01/02/17 04:42 Albumin 3.8 g/dL (3.9-5) L 01/02/17 04:42 Albumin/Globulin Ratio 1.3 % 01/02/17 04:42 Urine Color Straw (Yellow) 12/30/16 17:08 Urine Turbidity Clear (Clear) 12/30/16 17:08 Urine pH 7.0 (5.0-7.0) 12/30/16 17:08 Ur Specific [place] 1.010 (1.003-1.030) 12/30/16 17:08 Urine Protein <15 mg/dl mg/dL (Negative) 12/30/16 17:08 Urine Glucose (UA) Neg mg/dL (Negative) 12/30/16 17:08 Urine Ketones Neg mg/dL (Negative) 12/30/16 17:08 Urine Blood Neg (Negative) 12/30/16 17:08 Urine Nitrite Neg (Negative) 12/30/16 17:08 Urine Bilirubin Neg (Negative) 12/30/16 17:08 Urine Urobilinogen < 2.0 mg/dL (<2.0) 12/30/16 17:08 Ur Leukocyte Esterase Neg (Negative) 12/30/16 17:08 Urine WBC (Auto) 0.0 /HPF (0.0-6.0) 12/30/16 17:08 Urine RBC (Auto) 1.0 /HPF (0.0-6.0) 12/30/16 17:08 U Epithel Cells (Auto) < 1.0 /HPF (0-13.0) 12/30/16 17:08 Salicylates < 0.3 mg/dL (2.8-20.0) L 12/30/16 16:44 Acetaminophen < 15.0 ug/mL (10.0-30.0) 12/30/16 16:44
--- NOTE | 2017-01-05 08:11 | Progress Note ---
Assessment and Plan Assessment and plan: --Acute metabolic encephalopathy; resolved Secondary to postictal state due to seizure --History of seizure disorder; noncompliant with medications No new episodes of seizures since admission, continue Keppra, Ativan as needed, neurology evaluated the patient --Hypertension; moderate control, continue current antihypertensives and when necessary medications --Acute psychosis psych is following the patient, closely monitor --Medical noncompliance; counseling done advised to comply with medications diet and follow-up visits --DC planning per case management, awaiting placement Possible discharge in 1-2 days if placement is completed History Interval history: Patient seen and examined medical records reviewed No new events, feels better no new complaints Awaiting placement Multiple social issues Hospitalist Physical - Constitutional Vitals: Temp Pulse Resp BP Pulse Ox 98.5 F 65 20 120/61 94 01/05/17 03:43 01/05/17 03:43 01/05/17 03:43 01/05/17 03:43 01/05/17 03:43 General appearance: Present: no acute distress, well-nourished - EENT Eyes: Present: PERRL, EOM intact - Neck Neck: Present: supple, normal ROM - Respiratory Respiratory effort: normal Respiratory: bilateral: diminished, negative: rales, rhonchi, wheezing, other - Cardiovascular Rhythm: regular Heart Sounds: Present: S1 & S2 - Extremities Extremities: no ischemia, No edema - Abdominal General gastrointestinal: soft, non-tender, non-distended, normal bowel sounds - Integumentary Integumentary: Present: clear, warm - Psychiatric Psychiatric: appropriate mood/affect, cooperative - Neurologic Neurologic: CNII-XII intact, moves all extremities Results - Labs CBC & Chem 7: 01/03/17 04:44 01/03/17 04:44 Labs: Laboratory Last Values WBC 7.3 K/mm3 (4.5-11.0) 01/03/17 04:44 RBC 4.20 M/mm3 (3.65-5.03) 01/03/17 04:44 Hgb 13.1 gm/dl (10.1-14.3) 01/03/17 04:44 Hct 38.6 % (30.3-42.9) 01/03/17 04:44 MCV 92 fl (79-97) 01/03/17 04:44 MCH 31 pg (28-32) 01/03/17 04:44 MCHC 34 % (30-34) 01/03/17 04:44 RDW 14.0 % (13.2-15.2) 01/03/17 04:44 Plt Count 162 K/mm3 (140-440) 01/03/17 04:44 Lymph % (Auto) 50.1 % (13.4-35.0) H 01/02/17 04:42 [place] % (Auto) 8.0 % (0.0-7.3) H 01/02/17 04:42 Eos % (Auto) 1.7 % (0.0-4.3) 01/02/17 04:42 Baso % (Auto) 0.3 % (0.0-1.8) 01/02/17 04:42 Lymph # 3.8 K/mm3 (1.2-5.4) 01/02/17 04:42 [place] # 0.6 K/mm3 (0.0-0.8) 01/02/17 04:42 Eos # 0.1 K/mm3 (0.0-0.4) 01/02/17 04:42 Baso # 0.0 K/mm3 (0.0-0.1) 01/02/17 04:42 Add Manual Diff Complete 01/03/17 04:44 Total Counted 100 01/03/17 04:44 Seg Neutrophils % Ladle Repairer 01/03/17 04:44 Seg Neuts % (Manual) 33.0 % (40.0-70.0) L 01/03/17 04:44 Band Neutrophils % 0 % 01/03/17 04:44 Lymphocytes % (Manual) 63.0 % (13.4-35.0) H 01/03/17 04:44 Reactive Lymphs % (Man) 2.0 % 01/03/17 04:44 Monocytes % (Manual) 1.0 % (0.0-7.3) 01/03/17 04:44 Eosinophils % (Manual) 1.0 % (0.0-4.3) 01/03/17 04:44 Basophils % (Manual) 0 % (0.0-1.8) 01/03/17 04:44 Metamyelocytes % 0 % 01/03/17 04:44 Myelocytes % 0 % 01/03/17 04:44 Promyelocytes % 0 % 01/03/17 04:44 Blast Cells % 0 % 01/03/17 04:44 Nucleated RBC % Not Reportable 01/03/17 04:44 Seg Neutrophils # 3.0 K/mm3 (1.8-7.7) 01/02/17 04:42 Seg Neutrophils # Man 2.4 K/mm3 (1.8-7.7) 01/03/17 04:44 Band Neutrophils # 0.0 K/mm3 01/03/17 04:44 Lymphocytes # (Manual) 4.6 K/mm3 (1.2-5.4) 01/03/17 04:44 Abs React Lymphs (Man) 0.1 K/mm3 01/03/17 04:44 Monocytes # (Manual) 0.1 K/mm3 (0.0-0.8) 01/03/17 04:44 Eosinophils # (Manual) 0.1 K/mm3 (0.0-0.4) 01/03/17 04:44 Basophils # (Manual) 0.0 K/mm3 (0.0-0.1) 01/03/17 04:44 Metamyelocytes # 0.0 K/mm3 01/03/17 04:44 Myelocytes # 0.0 K/mm3 01/03/17 04:44 Promyelocytes # 0.0 K/mm3 01/03/17 04:44 Blast Cells # 0.0 K/mm3 01/03/17 04:44 WBC Morphology Not Reportable 01/03/17 04:44 Hypersegmented Neuts Not Reportable 01/03/17 04:44 Hyposegmented Neuts Not Reportable 01/03/17 04:44 Hypogranular Neuts Not Reportable 01/03/17 04:44 Smudge Cells Not Reportable 01/03/17 04:44 Toxic Granulation Not Reportable 01/03/17 04:44 Toxic Vacuolation Not Reportable 01/03/17 04:44 Dohle Bodies Not Reportable 01/03/17 04:44 Pelger-Huet Anomaly Not Reportable 01/03/17 04:44 Rylee Rods Not Reportable 01/03/17 04:44 Platelet Estimate Consistent w auto 01/03/17 04:44 Clumped Platelets Not Reportable 01/03/17 04:44 Plt Clumps, EDTA Not Reportable 01/03/17 04:44 Large Platelets Not Reportable 01/03/17 04:44 Giant Platelets Not Reportable 01/03/17 04:44 Platelet Satelliting Not Reportable 01/03/17 04:44 Plt Morphology Comment Not Reportable 01/03/17 04:44 RBC Morphology Not Reportable 01/03/17 04:44 Dimorphic RBCs Not Reportable 01/03/17 04:44 Polychromasia Not Reportable 01/03/17 04:44 Hypochromasia Not Reportable 01/03/17 04:44 Poikilocytosis Not Reportable 01/03/17 04:44 Anisocytosis Not Reportable 01/03/17 04:44 Microcytosis Not Reportable 01/03/17 04:44 Macrocytosis Not Reportable 01/03/17 04:44 Spherocytes Not Reportable 01/03/17 04:44 Pappenheimer Bodies Not Reportable 01/03/17 04:44 Sickle Cells Not Reportable 01/03/17 04:44 Target Cells Not Reportable 01/03/17 04:44 Tear Drop Cells Not Reportable 01/03/17 04:44 Ovalocytes Not Reportable 01/03/17 04:44 Helmet Cells Not Reportable 01/03/17 04:44 Jules-[place] Bodies Not Reportable 01/03/17 04:44 [place] Rings Not Reportable 01/03/17 04:44 [place] Cells Not Reportable 01/03/17 04:44 Bite Cells Not Reportable 01/03/17 04:44 Crenated Cell Not Reportable 01/03/17 04:44 Elliptocytes Not Reportable 01/03/17 04:44 Acanthocytes (Spur) Not Reportable 01/03/17 04:44 Rouleaux Not Reportable 01/03/17 04:44 Hemoglobin C Crystals Not Reportable 01/03/17 04:44 Schistocytes Not Reportable 01/03/17 04:44 Malaria parasites Not Reportable 01/03/17 04:44 Ruddy Bodies Not Reportable 01/03/17 04:44 Hem Pathologist Commnt No 01/03/17 04:44 Sodium 140 mmol/L (137-145) 01/03/17 04:44 Potassium 3.4 mmol/L (3.6-5.0) L 01/03/17 04:44 Chloride 102.2 mmol/L (98-107) 01/03/17 04:44 Carbon Dioxide 28 mmol/L (22-30) 01/03/17 04:44 Anion Gap 13 mmol/L 01/03/17 04:44 BUN 15 mg/dL (7-17) 01/03/17 04:44 Creatinine 0.6 mg/dL (0.7-1.2) L 01/03/17 04:44 Estimated GFR > 60 ml/min 01/03/17 04:44 BUN/Creatinine Ratio 25 % 01/03/17 04:44 Glucose 88 mg/dL (65-100) 01/03/17 04:44 Calcium 8.8 mg/dL (8.4-10.2) 01/03/17 04:44 Magnesium 2.10 mg/dL (1.7-2.3) 01/02/17 17:31 Total Bilirubin 0.30 mg/dL (0.1-1.2) 01/02/17 04:42 AST 14 units/L (5-40) 01/02/17 04:42 ALT 13 units/L (7-56) 01/02/17 04:42 Alkaline Phosphatase 93 units/L (35-129) 01/02/17 04:42 Total Creatine Kinase 335 units/L (30-135) H 12/30/16 16:44 Total Protein 6.7 g/dL (6.3-8.2) 01/02/17 04:42 Albumin 3.8 g/dL (3.9-5) L 01/02/17 04:42 Albumin/Globulin Ratio 1.3 % 01/02/17 04:42 Urine Color Straw (Yellow) 12/30/16 17:08 Urine Turbidity Clear (Clear) 12/30/16 17:08 Urine pH 7.0 (5.0-7.0) 12/30/16 17:08 Ur Specific [place] 1.010 (1.003-1.030) 12/30/16 17:08 Urine Protein <15 mg/dl mg/dL (Negative) 12/30/16 17:08 Urine Glucose (UA) Neg mg/dL (Negative) 12/30/16 17:08 Urine Ketones Neg mg/dL (Negative) 12/30/16 17:08 Urine Blood Neg (Negative) 12/30/16 17:08 Urine Nitrite Neg (Negative) 12/30/16 17:08 Urine Bilirubin Neg (Negative) 12/30/16 17:08 Urine Urobilinogen < 2.0 mg/dL (<2.0) 12/30/16 17:08 Ur Leukocyte Esterase Neg (Negative) 12/30/16 17:08 Urine WBC (Auto) 0.0 /HPF (0.0-6.0) 12/30/16 17:08 Urine RBC (Auto) 1.0 /HPF (0.0-6.0) 12/30/16 17:08 U Epithel Cells (Auto) < 1.0 /HPF (0-13.0) 12/30/16 17:08 Salicylates < 0.3 mg/dL (2.8-20.0) L 12/30/16 16:44 Acetaminophen < 15.0 ug/mL (10.0-30.0) 12/30/16 16:44
[2017-01-05] MEDS: KEPPRA PO SCH ×2 (10:14→21:44)
[2017-01-05] MEDS: MOBIC PO SCH (10:15)
[2017-01-05] MEDS: HCTZ PO SCH (10:15)
[2017-01-06] MEDS: MOBIC PO SCH (10:47)
[2017-01-06] MEDS: KEPPRA PO SCH ×2 (10:47→22:37)
[2017-01-06] MEDS: HCTZ PO SCH (10:47)
--- NOTE | 2017-01-06 18:29 | Progress Note ---
Assessment and Plan Assessment and plan: --Acute psychosis; stable, follow psych upon discharge --History of seizures; seizure precautions, antiepileptic medications, neurology following --Metabolic encephalopathy ; probably postictal, resolved --Hypertension; moderate control, continue current antihypertensives and when necessary medications --Medical noncompliance; counseling done patient strongly advised to comply with medications. And follow-up visits --DC planning. Multiple social issues, Case management setting the placement Possible discharge in 1-2 days if placement is set up, History Interval history: Patient seen and examined Medical records reviewed No complaints Alert awake oriented 3 not in acute distress Awaiting placement Hospitalist Physical - Constitutional Vitals: Temp Pulse Resp BP Pulse Ox 98.4 F 71 18 147/84 99 01/06/17 13:03 01/06/17 13:03 01/06/17 13:03 01/06/17 13:03 01/06/17 13:03 General appearance: Present: no acute distress, well-nourished, obese - EENT Eyes: Present: PERRL, EOM intact - Neck Neck: Present: supple, normal ROM - Respiratory Respiratory effort: normal Respiratory: negative: rales, rhonchi, wheezing - Cardiovascular Rhythm: regular Heart Sounds: Present: S1 & S2 - Extremities Extremities: no ischemia, No edema - Abdominal General gastrointestinal: soft, non-tender, non-distended, normal bowel sounds - Integumentary Integumentary: Present: clear, warm - Psychiatric Psychiatric: appropriate mood/affect, cooperative - Neurologic Neurologic: CNII-XII intact, moves all extremities Results - Labs CBC & Chem 7: 01/03/17 04:44 01/03/17 04:44 Labs: Laboratory Last Values WBC 7.3 K/mm3 (4.5-11.0) 01/03/17 04:44 RBC 4.20 M/mm3 (3.65-5.03) 01/03/17 04:44 Hgb 13.1 gm/dl (10.1-14.3) 01/03/17 04:44 Hct 38.6 % (30.3-42.9) 01/03/17 04:44 MCV 92 fl (79-97) 01/03/17 04:44 MCH 31 pg (28-32) 01/03/17 04:44 MCHC 34 % (30-34) 01/03/17 04:44 RDW 14.0 % (13.2-15.2) 01/03/17 04:44 Plt Count 162 K/mm3 (140-440) 01/03/17 04:44 Lymph % (Auto) 50.1 % (13.4-35.0) H 01/02/17 04:42 [place] % (Auto) 8.0 % (0.0-7.3) H 01/02/17 04:42 Eos % (Auto) 1.7 % (0.0-4.3) 01/02/17 04:42 Baso % (Auto) 0.3 % (0.0-1.8) 01/02/17 04:42 Lymph # 3.8 K/mm3 (1.2-5.4) 01/02/17 04:42 [place] # 0.6 K/mm3 (0.0-0.8) 01/02/17 04:42 Eos # 0.1 K/mm3 (0.0-0.4) 01/02/17 04:42 Baso # 0.0 K/mm3 (0.0-0.1) 01/02/17 04:42 Add Manual Diff Complete 01/03/17 04:44 Total Counted 100 01/03/17 04:44 Seg Neutrophils % Executive Assistant To General Counsel 01/03/17 04:44 Seg Neuts % (Manual) 33.0 % (40.0-70.0) L 01/03/17 04:44 Band Neutrophils % 0 % 01/03/17 04:44 Lymphocytes % (Manual) 63.0 % (13.4-35.0) H 01/03/17 04:44 Reactive Lymphs % (Man) 2.0 % 01/03/17 04:44 Monocytes % (Manual) 1.0 % (0.0-7.3) 01/03/17 04:44 Eosinophils % (Manual) 1.0 % (0.0-4.3) 01/03/17 04:44 Basophils % (Manual) 0 % (0.0-1.8) 01/03/17 04:44 Metamyelocytes % 0 % 01/03/17 04:44 Myelocytes % 0 % 01/03/17 04:44 Promyelocytes % 0 % 01/03/17 04:44 Blast Cells % 0 % 01/03/17 04:44 Nucleated RBC % Not Reportable 01/03/17 04:44 Seg Neutrophils # 3.0 K/mm3 (1.8-7.7) 01/02/17 04:42 Seg Neutrophils # Man 2.4 K/mm3 (1.8-7.7) 01/03/17 04:44 Band Neutrophils # 0.0 K/mm3 01/03/17 04:44 Lymphocytes # (Manual) 4.6 K/mm3 (1.2-5.4) 01/03/17 04:44 Abs React Lymphs (Man) 0.1 K/mm3 01/03/17 04:44 Monocytes # (Manual) 0.1 K/mm3 (0.0-0.8) 01/03/17 04:44 Eosinophils # (Manual) 0.1 K/mm3 (0.0-0.4) 01/03/17 04:44 Basophils # (Manual) 0.0 K/mm3 (0.0-0.1) 01/03/17 04:44 Metamyelocytes # 0.0 K/mm3 01/03/17 04:44 Myelocytes # 0.0 K/mm3 01/03/17 04:44 Promyelocytes # 0.0 K/mm3 01/03/17 04:44 Blast Cells # 0.0 K/mm3 01/03/17 04:44 WBC Morphology Not Reportable 01/03/17 04:44 Hypersegmented Neuts Not Reportable 01/03/17 04:44 Hyposegmented Neuts Not Reportable 01/03/17 04:44 Hypogranular Neuts Not Reportable 01/03/17 04:44 Smudge Cells Not Reportable 01/03/17 04:44 Toxic Granulation Not Reportable 01/03/17 04:44 Toxic Vacuolation Not Reportable 01/03/17 04:44 Dohle Bodies Not Reportable 01/03/17 04:44 Pelger-Huet Anomaly Not Reportable 01/03/17 04:44 Rylee Rods Not Reportable 01/03/17 04:44 Platelet Estimate Consistent w auto 01/03/17 04:44 Clumped Platelets Not Reportable 01/03/17 04:44 Plt Clumps, EDTA Not Reportable 01/03/17 04:44 Large Platelets Not Reportable 01/03/17 04:44 Giant Platelets Not Reportable 01/03/17 04:44 Platelet Satelliting Not Reportable 01/03/17 04:44 Plt Morphology Comment Not Reportable 01/03/17 04:44 RBC Morphology Not Reportable 01/03/17 04:44 Dimorphic RBCs Not Reportable 01/03/17 04:44 Polychromasia Not Reportable 01/03/17 04:44 Hypochromasia Not Reportable 01/03/17 04:44 Poikilocytosis Not Reportable 01/03/17 04:44 Anisocytosis Not Reportable 01/03/17 04:44 Microcytosis Not Reportable 01/03/17 04:44 Macrocytosis Not Reportable 01/03/17 04:44 Spherocytes Not Reportable 01/03/17 04:44 Pappenheimer Bodies Not Reportable 01/03/17 04:44 Sickle Cells Not Reportable 01/03/17 04:44 Target Cells Not Reportable 01/03/17 04:44 Tear Drop Cells Not Reportable 01/03/17 04:44 Ovalocytes Not Reportable 01/03/17 04:44 Helmet Cells Not Reportable 01/03/17 04:44 Jules-[place] Bodies Not Reportable 01/03/17 04:44 [place] Rings Not Reportable 01/03/17 04:44 [place] Cells Not Reportable 01/03/17 04:44 Bite Cells Not Reportable 01/03/17 04:44 Crenated Cell Not Reportable 01/03/17 04:44 Elliptocytes Not Reportable 01/03/17 04:44 Acanthocytes (Spur) Not Reportable 01/03/17 04:44 Rouleaux Not Reportable 01/03/17 04:44 Hemoglobin C Crystals Not Reportable 01/03/17 04:44 Schistocytes Not Reportable 01/03/17 04:44 Malaria parasites Not Reportable 01/03/17 04:44 Ruddy Bodies Not Reportable 01/03/17 04:44 Hem Pathologist Commnt No 01/03/17 04:44 Sodium 140 mmol/L (137-145) 01/03/17 04:44 Potassium 3.4 mmol/L (3.6-5.0) L 01/03/17 04:44 Chloride 102.2 mmol/L (98-107) 01/03/17 04:44 Carbon Dioxide 28 mmol/L (22-30) 01/03/17 04:44 Anion Gap 13 mmol/L 01/03/17 04:44 BUN 15 mg/dL (7-17) 01/03/17 04:44 Creatinine 0.6 mg/dL (0.7-1.2) L 01/03/17 04:44 Estimated GFR > 60 ml/min 01/03/17 04:44 BUN/Creatinine Ratio 25 % 01/03/17 04:44 Glucose 88 mg/dL (65-100) 01/03/17 04:44 Calcium 8.8 mg/dL (8.4-10.2) 01/03/17 04:44 Magnesium 2.10 mg/dL (1.7-2.3) 01/02/17 17:31 Total Bilirubin 0.30 mg/dL (0.1-1.2) 01/02/17 04:42 AST 14 units/L (5-40) 01/02/17 04:42 ALT 13 units/L (7-56) 01/02/17 04:42 Alkaline Phosphatase 93 units/L (35-129) 01/02/17 04:42 Total Creatine Kinase 335 units/L (30-135) H 12/30/16 16:44 Total Protein 6.7 g/dL (6.3-8.2) 01/02/17 04:42 Albumin 3.8 g/dL (3.9-5) L 01/02/17 04:42 Albumin/Globulin Ratio 1.3 % 01/02/17 04:42 Urine Color Straw (Yellow) 12/30/16 17:08 Urine Turbidity Clear (Clear) 12/30/16 17:08 Urine pH 7.0 (5.0-7.0) 12/30/16 17:08 Ur Specific Gleason 1.010 (1.003-1.030) 12/30/16 17:08 Urine Protein <15 mg/dl mg/dL (Negative) 12/30/16 17:08 Urine Glucose (UA) Neg mg/dL (Negative) 12/30/16 17:08 Urine Ketones Neg mg/dL (Negative) 12/30/16 17:08 Urine Blood Neg (Negative) 12/30/16 17:08 Urine Nitrite Neg (Negative) 12/30/16 17:08 Urine Bilirubin Neg (Negative) 12/30/16 17:08 Urine Urobilinogen < 2.0 mg/dL (<2.0) 12/30/16 17:08 Ur Leukocyte Esterase Neg (Negative) 12/30/16 17:08 Urine WBC (Auto) 0.0 /HPF (0.0-6.0) 12/30/16 17:08 Urine RBC (Auto) 1.0 /HPF (0.0-6.0) 12/30/16 17:08 U Epithel Cells (Auto) < 1.0 /HPF (0-13.0) 12/30/16 17:08 Salicylates < 0.3 mg/dL (2.8-20.0) L 12/30/16 16:44 Acetaminophen < 15.0 ug/mL (10.0-30.0) 12/30/16 16:44
[2017-01-07] MEDS: MOBIC PO SCH (10:17)
[2017-01-07] MEDS: KEPPRA PO SCH ×2 (10:17→21:48)
[2017-01-07] MEDS: HCTZ PO SCH (10:17)
--- NOTE | 2017-01-07 15:44 | Progress Note ---
Assessment and Plan -Metabolic encephalopathy: Resolved. probably postictal, -Acute psychosis: stable, follow up with psych upon discharge -History of seizures: seizure precautions, antiepileptic medications, neurology following -Hypertension:Failrly well controlled control, continue current antihypertensives and when necessary medications -Medical noncompliance: counseling done patient strongly advised to comply with medications. And follow-up visits -DC planning. Awaiting placement. Case management assisting Subjective Date of service: 01/07/17 Principal diagnosis: Metabolic encephalopathy, Seizure d/o and Interval history: No new complaint. Denies any chest pain of shortness of breath. I want to go but don't have a place to go Objective - Constitutional Vitals: Vital Signs - 12hr 01/07/17 01/07/17 01/07/17 04:19 07:23 11:17 Temperature 98.8 F 98.6 F 99.1 F Pulse Rate 65 64 77 Respiratory 18 18 20 Rate Blood Pressure 124/56 141/78 150/77 O2 Sat by Pulse 96 98 97 Oximetry General appearance: Present: no acute distress, well-nourished - EENT Eyes: PERRL, EOM intact - Neck Neck: supple, normal ROM - Respiratory Respiratory effort: normal Respiratory: bilateral: CTA - Cardiovascular Rhythm: regular Heart Sounds: Present: S1 & S2. Absent: gallop, rub Extremities: pulses intact, No edema, normal color, Full ROM - Gastrointestinal General gastrointestinal: Present: soft, non-tender, non-distended, normal bowel sounds - Integumentary Integumentary: clear, warm, dry - Musculoskeletal Musculoskeletal: 1, strength equal bilaterally - Neurologic Neurologic: moves all extremities - Psychiatric Psychiatric: memory intact, appropriate mood/affect, intact judgment & insight - Labs CBC & Chem 7: 01/03/17 04:44 01/03/17 04:44
--- NOTE | 2017-01-08 09:11 | Progress Note ---
Assessment and Plan Assessment and plan: --Acute psychosis; resolved, follow outpatient behavioral health upon discharge --History of seizures; no new episodes ,seizure precautions, antiepileptic medications, follow neurology on discharge --Metabolic encephalopathy ; resolved --Hypertension; moderate control, on antihypertensives and PRN medications --Medical noncompliance; counseling done --DC planning. Awaiting placement Patient is medically stable for discharge History Interval history: Patient seen and examined No new complaints, awaiting placement Hospitalist Physical - Constitutional Vitals: Temp Pulse Resp BP Pulse Ox 97.9 F 60 18 150/75 98 01/08/17 05:19 01/08/17 05:19 01/08/17 05:19 01/08/17 05:19 01/08/17 05:19 General appearance: Present: no acute distress, well-nourished - EENT Eyes: Present: PERRL, EOM intact - Neck Neck: Present: supple, normal ROM - Respiratory Respiratory effort: normal Respiratory: negative: rales, rhonchi, wheezing - Cardiovascular Rhythm: regular Heart Sounds: Present: S1 & S2 - Extremities Extremities: no ischemia, No edema - Abdominal General gastrointestinal: soft, non-tender, non-distended, normal bowel sounds - Integumentary Integumentary: Present: clear, warm - Psychiatric Psychiatric: appropriate mood/affect, cooperative - Neurologic Neurologic: CNII-XII intact, moves all extremities Results - Labs CBC & Chem 7: 01/03/17 04:44 01/03/17 04:44 Labs: Laboratory Last Values WBC 7.3 K/mm3 (4.5-11.0) 01/03/17 04:44 RBC 4.20 M/mm3 (3.65-5.03) 01/03/17 04:44 Hgb 13.1 gm/dl (10.1-14.3) 01/03/17 04:44 Hct 38.6 % (30.3-42.9) 01/03/17 04:44 MCV 92 fl (79-97) 01/03/17 04:44 MCH 31 pg (28-32) 01/03/17 04:44 MCHC 34 % (30-34) 01/03/17 04:44 RDW 14.0 % (13.2-15.2) 01/03/17 04:44 Plt Count 162 K/mm3 (140-440) 01/03/17 04:44 Lymph % (Auto) 50.1 % (13.4-35.0) H 01/02/17 04:42 [place] % (Auto) 8.0 % (0.0-7.3) H 01/02/17 04:42 Eos % (Auto) 1.7 % (0.0-4.3) 01/02/17 04:42 Baso % (Auto) 0.3 % (0.0-1.8) 01/02/17 04:42 Lymph # 3.8 K/mm3 (1.2-5.4) 01/02/17 04:42 [place] # 0.6 K/mm3 (0.0-0.8) 01/02/17 04:42 Eos # 0.1 K/mm3 (0.0-0.4) 01/02/17 04:42 Baso # 0.0 K/mm3 (0.0-0.1) 01/02/17 04:42 Add Manual Diff Complete 01/03/17 04:44 Total Counted 100 01/03/17 04:44 Seg Neutrophils % Grounds Keeper 01/03/17 04:44 Seg Neuts % (Manual) 33.0 % (40.0-70.0) L 01/03/17 04:44 Band Neutrophils % 0 % 01/03/17 04:44 Lymphocytes % (Manual) 63.0 % (13.4-35.0) H 01/03/17 04:44 Reactive Lymphs % (Man) 2.0 % 01/03/17 04:44 Monocytes % (Manual) 1.0 % (0.0-7.3) 01/03/17 04:44 Eosinophils % (Manual) 1.0 % (0.0-4.3) 01/03/17 04:44 Basophils % (Manual) 0 % (0.0-1.8) 01/03/17 04:44 Metamyelocytes % 0 % 01/03/17 04:44 Myelocytes % 0 % 01/03/17 04:44 Promyelocytes % 0 % 01/03/17 04:44 Blast Cells % 0 % 01/03/17 04:44 Nucleated RBC % Not Reportable 01/03/17 04:44 Seg Neutrophils # 3.0 K/mm3 (1.8-7.7) 01/02/17 04:42 Seg Neutrophils # Man 2.4 K/mm3 (1.8-7.7) 01/03/17 04:44 Band Neutrophils # 0.0 K/mm3 01/03/17 04:44 Lymphocytes # (Manual) 4.6 K/mm3 (1.2-5.4) 01/03/17 04:44 Abs React Lymphs (Man) 0.1 K/mm3 01/03/17 04:44 Monocytes # (Manual) 0.1 K/mm3 (0.0-0.8) 01/03/17 04:44 Eosinophils # (Manual) 0.1 K/mm3 (0.0-0.4) 01/03/17 04:44 Basophils # (Manual) 0.0 K/mm3 (0.0-0.1) 01/03/17 04:44 Metamyelocytes # 0.0 K/mm3 01/03/17 04:44 Myelocytes # 0.0 K/mm3 01/03/17 04:44 Promyelocytes # 0.0 K/mm3 01/03/17 04:44 Blast Cells # 0.0 K/mm3 01/03/17 04:44 WBC Morphology Not Reportable 01/03/17 04:44 Hypersegmented Neuts Not Reportable 01/03/17 04:44 Hyposegmented Neuts Not Reportable 01/03/17 04:44 Hypogranular Neuts Not Reportable 01/03/17 04:44 Smudge Cells Not Reportable 01/03/17 04:44 Toxic Granulation Not Reportable 01/03/17 04:44 Toxic Vacuolation Not Reportable 01/03/17 04:44 Dohle Bodies Not Reportable 01/03/17 04:44 Pelger-Huet Anomaly Not Reportable 01/03/17 04:44 Rylee Rods Not Reportable 01/03/17 04:44 Platelet Estimate Consistent w auto 01/03/17 04:44 Clumped Platelets Not Reportable 01/03/17 04:44 Plt Clumps, EDTA Not Reportable 01/03/17 04:44 Large Platelets Not Reportable 01/03/17 04:44 Giant Platelets Not Reportable 01/03/17 04:44 Platelet Satelliting Not Reportable 01/03/17 04:44 Plt Morphology Comment Not Reportable 01/03/17 04:44 RBC Morphology Not Reportable 01/03/17 04:44 Dimorphic RBCs Not Reportable 01/03/17 04:44 Polychromasia Not Reportable 01/03/17 04:44 Hypochromasia Not Reportable 01/03/17 04:44 Poikilocytosis Not Reportable 01/03/17 04:44 Anisocytosis Not Reportable 01/03/17 04:44 Microcytosis Not Reportable 01/03/17 04:44 Macrocytosis Not Reportable 01/03/17 04:44 Spherocytes Not Reportable 01/03/17 04:44 Pappenheimer Bodies Not Reportable 01/03/17 04:44 Sickle Cells Not Reportable 01/03/17 04:44 Target Cells Not Reportable 01/03/17 04:44 Tear Drop Cells Not Reportable 01/03/17 04:44 Ovalocytes Not Reportable 01/03/17 04:44 Helmet Cells Not Reportable 01/03/17 04:44 [place]ules[place] Bodies Not Reportable 01/03/17 04:44 [place] Rings Not Reportable 01/03/17 04:44 [place] Cells Not Reportable 01/03/17 04:44 Bite Cells Not Reportable 01/03/17 04:44 Crenated Cell Not Reportable 01/03/17 04:44 Elliptocytes Not Reportable 01/03/17 04:44 Acanthocytes (Spur) Not Reportable 01/03/17 04:44 Rouleaux Not Reportable 01/03/17 04:44 Hemoglobin C Crystals Not Reportable 01/03/17 04:44 Schistocytes Not Reportable 01/03/17 04:44 Malaria parasites Not Reportable 01/03/17 04:44 Rdudy Bodies Not Reportable 01/03/17 04:44 Hem Pathologist Commnt No 01/03/17 04:44 Sodium 140 mmol/L (137-145) 01/03/17 04:44 Potassium 3.4 mmol/L (3.6-5.0) L 01/03/17 04:44 Chloride 102.2 mmol/L (98-107) 01/03/17 04:44 Carbon Dioxide 28 mmol/L (22-30) 01/03/17 04:44 Anion Gap 13 mmol/L 01/03/17 04:44 BUN 15 mg/dL (7-17) 01/03/17 04:44 Creatinine 0.6 mg/dL (0.7-1.2) L 01/03/17 04:44 Estimated GFR > 60 ml/min 01/03/17 04:44 BUN/Creatinine Ratio 25 % 01/03/17 04:44 Glucose 88 mg/dL (65-100) 01/03/17 04:44 Calcium 8.8 mg/dL (8.4-10.2) 01/03/17 04:44 Magnesium 2.10 mg/dL (1.7-2.3) 01/02/17 17:31 Total Bilirubin 0.30 mg/dL (0.1-1.2) 01/02/17 04:42 AST 14 units/L (5-40) 01/02/17 04:42 ALT 13 units/L (7-56) 01/02/17 04:42 Alkaline Phosphatase 93 units/L (35-129) 01/02/17 04:42 Total Creatine Kinase 335 units/L (30-135) H 12/30/16 16:44 Total Protein 6.7 g/dL (6.3-8.2) 01/02/17 04:42 Albumin 3.8 g/dL (3.9-5) L 01/02/17 04:42 Albumin/Globulin Ratio 1.3 % 01/02/17 04:42 Urine Color Straw (Yellow) 12/30/16 17:08 Urine Turbidity Clear (Clear) 12/30/16 17:08 Urine pH 7.0 (5.0-7.0) 12/30/16 17:08 Ur Specific [place] 1.010 (1.003-1.030) 12/30/16 17:08 Urine Protein <15 mg/dl mg/dL (Negative) 12/30/16 17:08 Urine Glucose (UA) Neg mg/dL (Negative) 12/30/16 17:08 Urine Ketones Neg mg/dL (Negative) 12/30/16 17:08 Urine Blood Neg (Negative) 12/30/16 17:08 Urine Nitrite Neg (Negative) 12/30/16 17:08 Urine Bilirubin Neg (Negative) 12/30/16 17:08 Urine Urobilinogen < 2.0 mg/dL (<2.0) 12/30/16 17:08 Ur Leukocyte Esterase Neg (Negative) 12/30/16 17:08 Urine WBC (Auto) 0.0 /HPF (0.0-6.0) 12/30/16 17:08 Urine RBC (Auto) 1.0 /HPF (0.0-6.0) 12/30/16 17:08 U Epithel Cells (Auto) < 1.0 /HPF (0-13.0) 12/30/16 17:08 Salicylates < 0.3 mg/dL (2.8-20.0) L 12/30/16 16:44 Acetaminophen < 15.0 ug/mL (10.0-30.0) 12/30/16 16:44
[2017-01-08] MEDS: MOBIC PO SCH (10:14)
[2017-01-08] MEDS: KEPPRA PO SCH ×2 (10:14→21:50)
[2017-01-08] MEDS: HCTZ PO SCH (10:15)
[2017-01-08] MEDS: APRESOLINE PO SCH ×2 (14:02→21:50)
[2017-01-09 06:17] LABS: Anion Gap 13 mmol/L; BUN/Creatinine Ratio 23; Blood Urea Nitrogen 14 mg/dL (7-17); Calcium 8.9 mg/dL (8.4-10.2); Carbon Dioxide 29 mmol/L (22-30); Chloride 104.2 mmol/L (98-107); Glucose 84 mg/dL (65-100); Potassium 4.4 mmol/L (3.6-5.0); Sodium 142 mmol/L (137-145)
[2017-01-09] MEDS: APRESOLINE PO SCH ×2 (08:52→14:27)
[2017-01-09] MEDS: KEPPRA PO SCH (10:12)
[2017-01-09] MEDS: MOBIC PO SCH (10:12)
[2017-01-09] MEDS: HCTZ PO SCH (10:12)
[2017-01-09 17:05] VITALS: BP 130/57
--- NOTE | 2017-01-09 17:27 | Progress Note ---
Assessment and Plan Assessment and plan: --Metabolic encephalopathy ; resolved --Acute psychosis; resolved, follow outpatient behavioral health upon discharge --History of seizures; no new episodes ,seizure precautions, antiepileptic medications, follow neurology on discharge --Hypertension; moderate control, on antihypertensives and PRN medications --Medical noncompliance; counseling done --DC planning. Awaiting placement Patient is medically stable for discharge History Interval history: Patient Seen and examined medical records reviewed No new complaints, awaiting placement Hospitalist Physical - Constitutional Vitals: Temp Pulse Resp BP Pulse Ox 97.9 F 62 18 130/57 98 01/09/17 16:01 01/09/17 16:01 01/09/17 16:01 01/09/17 16:01 01/09/17 16:01 General appearance: Present: no acute distress, well-nourished - EENT Eyes: Present: PERRL, EOM intact - Neck Neck: Present: supple, normal ROM - Respiratory Respiratory effort: normal Respiratory: bilateral: diminished, negative: rales, rhonchi, wheezing - Cardiovascular Rhythm: regular Heart Sounds: Present: S1 & S2 - Extremities Extremities: no ischemia, No edema Peripheral Pulses: within normal limits - Abdominal General gastrointestinal: soft, non-tender, non-distended, normal bowel sounds - Integumentary Integumentary: Present: clear, warm - Psychiatric Psychiatric: appropriate mood/affect, cooperative - Neurologic Neurologic: CNII-XII intact, moves all extremities Results - Labs CBC & Chem 7: 01/03/17 04:44 01/09/17 04:22 Labs: Laboratory Last Values WBC 7.3 K/mm3 (4.5-11.0) 01/03/17 04:44 RBC 4.20 M/mm3 (3.65-5.03) 01/03/17 04:44 Hgb 13.1 gm/dl (10.1-14.3) 01/03/17 04:44 Hct 38.6 % (30.3-42.9) 01/03/17 04:44 MCV 92 fl (79-97) 01/03/17 04:44 MCH 31 pg (28-32) 01/03/17 04:44 MCHC 34 % (30-34) 01/03/17 04:44 RDW 14.0 % (13.2-15.2) 01/03/17 04:44 Plt Count 162 K/mm3 (140-440) 01/03/17 04:44 Lymph % (Auto) 50.1 % (13.4-35.0) H 01/02/17 04:42 [place] % (Auto) 8.0 % (0.0-7.3) H 01/02/17 04:42 Eos % (Auto) 1.7 % (0.0-4.3) 01/02/17 04:42 Baso % (Auto) 0.3 % (0.0-1.8) 01/02/17 04:42 Lymph # 3.8 K/mm3 (1.2-5.4) 01/02/17 04:42 [place] # 0.6 K/mm3 (0.0-0.8) 01/02/17 04:42 Eos # 0.1 K/mm3 (0.0-0.4) 01/02/17 04:42 Baso # 0.0 K/mm3 (0.0-0.1) 01/02/17 04:42 Add Manual Diff Complete 01/03/17 04:44 Total Counted 100 01/03/17 04:44 Seg Neutrophils % Inletter 01/03/17 04:44 Seg Neuts % (Manual) 33.0 % (40.0-70.0) L 01/03/17 04:44 Band Neutrophils % 0 % 01/03/17 04:44 Lymphocytes % (Manual) 63.0 % (13.4-35.0) H 01/03/17 04:44 Reactive Lymphs % (Man) 2.0 % 01/03/17 04:44 Monocytes % (Manual) 1.0 % (0.0-7.3) 01/03/17 04:44 Eosinophils % (Manual) 1.0 % (0.0-4.3) 01/03/17 04:44 Basophils % (Manual) 0 % (0.0-1.8) 01/03/17 04:44 Metamyelocytes % 0 % 01/03/17 04:44 Myelocytes % 0 % 01/03/17 04:44 Promyelocytes % 0 % 01/03/17 04:44 Blast Cells % 0 % 01/03/17 04:44 Nucleated RBC % Not Reportable 01/03/17 04:44 Seg Neutrophils # 3.0 K/mm3 (1.8-7.7) 01/02/17 04:42 Seg Neutrophils # Man 2.4 K/mm3 (1.8-7.7) 01/03/17 04:44 Band Neutrophils # 0.0 K/mm3 01/03/17 04:44 Lymphocytes # (Manual) 4.6 K/mm3 (1.2-5.4) 01/03/17 04:44 Abs React Lymphs (Man) 0.1 K/mm3 01/03/17 04:44 Monocytes # (Manual) 0.1 K/mm3 (0.0-0.8) 01/03/17 04:44 Eosinophils # (Manual) 0.1 K/mm3 (0.0-0.4) 01/03/17 04:44 Basophils # (Manual) 0.0 K/mm3 (0.0-0.1) 01/03/17 04:44 Metamyelocytes # 0.0 K/mm3 01/03/17 04:44 Myelocytes # 0.0 K/mm3 01/03/17 04:44 Promyelocytes # 0.0 K/mm3 01/03/17 04:44 Blast Cells # 0.0 K/mm3 01/03/17 04:44 WBC Morphology Not Reportable 01/03/17 04:44 Hypersegmented Neuts Not Reportable 01/03/17 04:44 Hyposegmented Neuts Not Reportable 01/03/17 04:44 Hypogranular Neuts Not Reportable 01/03/17 04:44 Smudge Cells Not Reportable 01/03/17 04:44 Toxic Granulation Not Reportable 01/03/17 04:44 Toxic Vacuolation Not Reportable 01/03/17 04:44 Dohle Bodies Not Reportable 01/03/17 04:44 Pelger-Huet Anomaly Not Reportable 01/03/17 04:44 Rylee Rods Not Reportable 01/03/17 04:44 Platelet Estimate Consistent w auto 01/03/17 04:44 Clumped Platelets Not Reportable 01/03/17 04:44 Plt Clumps, EDTA Not Reportable 01/03/17 04:44 Large Platelets Not Reportable 01/03/17 04:44 Giant Platelets Not Reportable 01/03/17 04:44 Platelet Satelliting Not Reportable 01/03/17 04:44 Plt Morphology Comment Not Reportable 01/03/17 04:44 RBC Morphology Not Reportable 01/03/17 04:44 Dimorphic RBCs Not Reportable 01/03/17 04:44 Polychromasia Not Reportable 01/03/17 04:44 Hypochromasia Not Reportable 01/03/17 04:44 Poikilocytosis Not Reportable 01/03/17 04:44 Anisocytosis Not Reportable 01/03/17 04:44 Microcytosis Not Reportable 01/03/17 04:44 Macrocytosis Not Reportable 01/03/17 04:44 Spherocytes Not Reportable 01/03/17 04:44 Pappenheimer Bodies Not Reportable 01/03/17 04:44 Sickle Cells Not Reportable 01/03/17 04:44 Target Cells Not Reportable 01/03/17 04:44 Tear Drop Cells Not Reportable 01/03/17 04:44 Ovalocytes Not Reportable 01/03/17 04:44 Helmet Cells Not Reportable 01/03/17 04:44 Jules-[place] Bodies Not Reportable 01/03/17 04:44 [place] Rings Not Reportable 01/03/17 04:44 [place] Cells Not Reportable 01/03/17 04:44 Bite Cells Not Reportable 01/03/17 04:44 Crenated Cell Not Reportable 01/03/17 04:44 Elliptocytes Not Reportable 01/03/17 04:44 Acanthocytes (Spur) Not Reportable 01/03/17 04:44 Rouleaux Not Reportable 01/03/17 04:44 Hemoglobin C Crystals Not Reportable 01/03/17 04:44 Schistocytes Not Reportable 01/03/17 04:44 Malaria parasites Not Reportable 01/03/17 04:44 [place] Bodies Not Reportable 01/03/17 04:44 Hem Pathologist Commnt No 01/03/17 04:44 Sodium 142 mmol/L (137-145) 01/09/17 04:22 Potassium 4.4 mmol/L (3.6-5.0) 01/09/17 04:22 Chloride 104.2 mmol/L (98-107) 01/09/17 04:22 Carbon Dioxide 29 mmol/L (22-30) 01/09/17 04:22 Anion Gap 13 mmol/L 01/09/17 04:22 BUN 14 mg/dL (7-17) 01/09/17 04:22 Creatinine 0.6 mg/dL (0.7-1.2) L 01/09/17 04:22 Estimated GFR > 60 ml/min 01/09/17 04:22 BUN/Creatinine Ratio 23 % 01/09/17 04:22 Glucose 84 mg/dL (65-100) 01/09/17 04:22 Calcium 8.9 mg/dL (8.4-10.2) 01/09/17 04:22 Magnesium 2.10 mg/dL (1.7-2.3) 01/02/17 17:31 Total Bilirubin 0.30 mg/dL (0.1-1.2) 01/02/17 04:42 AST 14 units/L (5-40) 01/02/17 04:42 ALT 13 units/L (7-56) 01/02/17 04:42 Alkaline Phosphatase 93 units/L (35-129) 01/02/17 04:42 Total Creatine Kinase 335 units/L (30-135) H 12/30/16 16:44 Total Protein 6.7 g/dL (6.3-8.2) 01/02/17 04:42 Albumin 3.8 g/dL (3.9-5) L 01/02/17 04:42 Albumin/Globulin Ratio 1.3 % 01/02/17 04:42 Urine Color Straw (Yellow) 12/30/16 17:08 Urine Turbidity Clear (Clear) 12/30/16 17:08 Urine pH 7.0 (5.0-7.0) 12/30/16 17:08 Ur Specific [place] 1.010 (1.003-1.030) 12/30/16 17:08 Urine Protein <15 mg/dl mg/dL (Negative) 12/30/16 17:08 Urine Glucose (UA) Neg mg/dL (Negative) 12/30/16 17:08 Urine Ketones Neg mg/dL (Negative) 12/30/16 17:08 Urine Blood Neg (Negative) 12/30/16 17:08 Urine Nitrite Neg (Negative) 12/30/16 17:08 Urine Bilirubin Neg (Negative) 12/30/16 17:08 Urine Urobilinogen < 2.0 mg/dL (<2.0) 12/30/16 17:08 Ur Leukocyte Esterase Neg (Negative) 12/30/16 17:08 Urine WBC (Auto) 0.0 /HPF (0.0-6.0) 12/30/16 17:08 Urine RBC (Auto) 1.0 /HPF (0.0-6.0) 12/30/16 17:08 U Epithel Cells (Auto) < 1.0 /HPF (0-13.0) 12/30/16 17:08 Salicylates < 0.3 mg/dL (2.8-20.0) L 12/30/16 16:44 Acetaminophen < 15.0 ug/mL (10.0-30.0) 12/30/16 16:44
--- NOTE | 2017-01-10 07:31 | Discharge Summary ---
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 Sylvester Notified:: Jacey ANGEL Phone number called:: Was contact made?: Yes If yes, [facility] Time called:: 07:51 01/02/17 13:56 Physical Therapy Evaluation and Treat [CONS] Routine Comment: Reason For Exam: Eval/treat, assess gait/strength 01/02/17 15:01 Consult to Dietitian/Nutrition [CONS] Routine Physician Instructions: Reason For Exam: Reason for Consult: Malnutrition Primary care physician: PATIENT SERVICE ASSOCIATE Hospitalization Condition: Good Hospital course: --Metabolic encephalopathy ; resolved --Acute psychosis; resolved, follow outpatient behavioral health upon discharge --History of seizures; no new episodes ,seizure precautions, antiepileptic medications, follow neurology on discharge --Hypertension; moderate control, on antihypertensives and PRN medications --Medical noncompliance; counseling done Disposition: DC/[place]-70 ANOTHER [facility] Time spent for discharge: 32 min Core Measure Documentation - Palliative Care Palliative Care/ Comfort Measures: Not Applicable Exam - Constitutional Vitals: Temp Pulse Resp BP Pulse Ox 97.9 F 62 18 130/57 98 01/09/17 16:01 01/09/17 16:01 01/09/17 16:01 01/09/17 16:01 01/09/17 16:01 Plan Follow up with: [facility] [Provider Group] - 3-5 Days ARLETTE LENZ MD [Staff Physician] - 7 Days GAUTAM KIM MD [Staff Physician] - 3-5 Days ARTIS BONNER MD [Referring] - 3-5 Days PRIMARY MD LUIS [Primary Care Provider] - 3-5 Days MICKIE CHEW MD [Staff Physician] - 3-5 Days Prescriptions: Hydrochlorothiazide [HCTZ] 25 mg PO DAILY #30 tablet levETIRAcetam [Keppra TAB] 750 mg PO BID #30 tablet oxyCODONE /ACETAMINOPHEN [Percocet 5/325 mg] 1 tab PO Q6H PRN #7 tablet PRN Reason: Pain, Moderate (4-6)
== END 2017-01-09 19:13 | disposition short-term general hospital (02) | DRG 885 ==
LOC: ED 12:10 → 4A 01-01 15:03
PROVIDERS: ADMIT Internal Medicine; ATTEND Internal Medicine
DX: F23 Brief psychotic disorder (principal); G40.909 Epilepsy, unspecified, not intractable, without status epilepticus; I10 Essential (primary) hypertension; F31.9 Bipolar disorder, unspecified; Z91.19 Patient's noncompliance with other medical treatment and regimen; Z82.49 Family history of ischemic heart disease and other diseases of the circulatory system; Z59.0 Homelessness; Z71.89 Other specified counseling
CPT/HCPCS: 36415; 70450; 71010; 72125; 72170; 80048; 80053; 80320; 81001; 82550; 83735; 85007; 85025; 93005; 93010; 95819; 96374; 96375; G0480; G8978-GP; G8979-GP; G8980-GP; J1953; J2060

== ENCOUNTER 2017-06-21 13:58 | Emergency (ER) | payer MEDICARE ==
[2017-06-21 15:04] LABS: Hematocrit 40.5 % (30.3-42.9); Hemoglobin 13.2 gm/dl (10.1-14.3); Mean Corpuscular HGB Conc 33 % (30-34); Mean Corpuscular Hemoglobin 29 pg (28-32); Mean Corpuscular Volume 90 fl (79-97); Platelet Count 188 K/mm3 (140-440); Red Blood Count 4.51 M/mm3 (3.65-5.03); Red Cell Distribution Width 13.8 % (13.2-15.2)
[2017-06-21 15:18] LABS: BUN/Creatinine Ratio 19; Blood Urea Nitrogen 13 mg/dL (7-17); Calcium 9.3 mg/dL (8.4-10.2); Hemolysis Index 2
[2017-06-21] MEDS ORDERED: KEPPRA 1,000 MG/NS 0.75% 100ML 1,000 MG/100 ML BAG IV ONE (16:05)
[2017-06-21] MEDS ORDERED: KEPPRA 1,000 MG in D5W 100 ML IV SCH (16:11)
[2017-06-21] MEDS ORDERED: CATAPRES PO ONE (16:52)
[2017-06-21] MEDS ORDERED: K-DUR PO ONE (17:42)
--- NOTE | 2017-06-21 17:46 | Emergency Department Report ---
ED Seizure HPI - General Chief Complaint: Seizure Stated Complaint: SEIZURES Time Seen by Provider: 06/21/17 16:38 Source: patient, family, EMS Mode of arrival: Ambulatory Limitations: Other - History of Present Illness Initial Comments: 66 yo female with the past medical history hypertension, bipolar disorder, and seizures presents from a senior care with multiple seizures for the past 2 days. Patient reports 2 seizures yesterday and 2 days despite being compliant with Keppra. Patient also takes a blood pressure medication daily last dose this morning. Patient complains of a mild global headache but no other complaints. Patient is responsible for taking all medication at the senior care. She recently got a new neurologist - Related Data Home Medications Medication Instructions Recorded Confirmed Last Taken Meloxicam [Mobic] 7.5 mg PO DAILY 12/30/16 12/30/16 Unknown Previous Rx's Medication Instructions Recorded Last Taken Type Hydrochlorothiazide [HCTZ] 25 mg PO DAILY #30 tablet 01/03/17 Unknown Rx levETIRAcetam [Keppra TAB] 750 mg PO BID #30 tablet 01/03/17 Unknown Rx oxyCODONE /ACETAMINOPHEN [Percocet 1 tab PO Q6H PRN #7 tablet 01/03/17 Unknown Rx 5/325 mg] Allergies Allergy/AdvReac Type Severity Reaction Status Date / Time No Known Allergies Allergy Unverified 07/12/16 21:03 ED Review of Systems ROS: Stated complaint: SEIZURES Other details as noted in HPI Comment: All other systems reviewed and negative Other: General: No limitations, patient is alert in no acute distress Head exam: Atraumatic, normocephalic Eyes exam: Normal appearance, pupils equal reactive to light, extraocular movements intact ENT: Moist mucous membrane, normal oropharynx Neck exam: Normal inspection, full range of motion, no meningismus nontender Respiratory exam: Clear to auscultation bilateral, no wheezes, rales, crackles Cardiovascular: Normal rate and rhythm, normal heart sounds Abdomen: Soft, nondistended, and nontender, with normal bowel sounds, no rebound, or guarding Extremity: Full range of motion normal inspection no deformity Back: Normal Inspection, full range of motion, no tenderness Neurologic: Alert, oriented x3, cranial nerves intact, no motor or sensory deficit Psychiatric: normal affect, normal mood Skin: Warm, dry, intact ED Past Medical Hx - Past Medical History Previous Medical History?: Yes Hx Hypertension: Yes Hx Seizures: Yes Hx Psychiatric Treatment: Yes (Bipolar) - Surgical History Past Surgical History?: No - Social History Smoking Status: Current Every Day Smoker Substance Use Type: Prescribed - Medications Home Medications: Home Medications Medication Instructions Recorded Confirmed Last Taken Type Meloxicam [Mobic] 7.5 mg PO DAILY 12/30/16 12/30/16 Unknown History Hydrochlorothiazide [HCTZ] 25 mg PO DAILY #30 tablet 01/03/17 Unknown Rx levETIRAcetam [Keppra TAB] 750 mg PO BID #30 tablet 01/03/17 Unknown Rx oxyCODONE /ACETAMINOPHEN [Percocet 1 tab PO Q6H PRN #7 tablet 01/03/17 Unknown Rx 5/325 mg] ED Physical Exam - General Limitations: Other ED Course Vital Signs 06/21/17 06/21/17 06/21/17 14:12 16:34 17:03 Temperature 98.2 F 99.6 F Pulse Rate 84 71 71 Respiratory 18 15 Rate Blood Pressure 180/83 222/102 Blood Pressure 222/102 [Left] O2 Sat by Pulse 98 98 Oximetry 06/21/17 18:43 Temperature Pulse Rate 81 Respiratory 16 Rate Blood Pressure Blood Pressure 167/89 [Left] O2 Sat by Pulse 99 Oximetry - Reevaluation(s) Reevaluation #1: 06/21/17 18:38 no further sz's ED Medical Decision Making - Lab Data Result diagrams: 06/21/17 14:31 06/21/17 14:31 Lab Results 06/21/17 06/21/17 06/21/17 Range/Units 14:31 14:31 17:42 WBC 8.5 (4.5-11.0) K/mm3 RBC 4.51 (3.65-5.03) M/mm3 Hgb 13.2 (10.1-14.3) gm/dl Hct 40.5 (30.3-42.9) % MCV 90 (79-97) fl MCH 29 (28-32) pg MCHC 33 (30-34) % RDW 13.8 (13.2-15.2) % Plt Count 188 (140-440) K/mm3 Sodium 138 (137-145) mmol/L Potassium 3.5 L (3.6-5.0) mmol/L Chloride 96.0 L (98-107) mmol/L Carbon Dioxide 29 (22-30) mmol/L Anion Gap 17 mmol/L BUN 13 (7-17) mg/dL Creatinine 0.7 (0.7-1.2) mg/dL Estimated GFR > 60 ml/min BUN/Creatinine Ratio 19 % Glucose 130 H (65-100) mg/dL Calcium 9.3 (8.4-10.2) mg/dL Magnesium 2.00 (1.7-2.3) mg/dL - Radiology Data Radiology results: report reviewed CT head: No acute findings - Medical Decision Making seizure states compliant keppra 1 gram given no further sz ct head neg neuro f/u rec hypokalemia mild Po K given mag normal HTN no signs of end organ damage/emergency received Clonidine 0.2mg with improvement states she is compliant with meds PMD f/u encouraged as well as outpt monitoring - Differential Diagnosis med noncompliance, intracranial abnl, electrolyte abnl, htn emerg Critical Care Time: No Critical care attestation.: If time is entered above; I have spent that time in minutes in the direct care of this critically ill patient, excluding procedure time. ED Disposition Clinical Impression: Seizure, HTN (hypertension) Disposition: DC-01 TO HOME OR SELFCARE Is pt being admited?: No Does the pt Need Aspirin: No Condition: Stable Instructions: Hypertension (ED), Recurrent Seizures Adult (ED) Additional Instructions: Continue current medications. Follow up with your neurologist to determine medication adjustment is needed. Continue to monitor and docurment your blood pressure at home. Take the results to your doctor to determine if your blood pressure medication needs to be changed. Return if symptoms worsen as indicated by your discharged instructions. Referrals: PRIMARY CARE,MD [Primary Care Provider] - 3-5 Days your, neurologist [Other] - 3-5 Days Time of Disposition: 18:43 - Assessment Assessment Interval: Baseline - Level of Consciousness 1a. Level of Consciousness: alert - LOC Questions 1b. LOC Questions: answers correctly - LOC Command 1c. LOC Commands: performs tasks correctly - Best Gaze 2. Best Gaze: normal - Visual 3. Visual: no visual loss - Facial Palsy 4. Facial Palsy: normal symmetrical movement - Motor Arm 5b. Motor Arm Right: no drift 5a. Motor Arm Left: no drift - Motor Leg 6a. Motor Leg Left: no drift 6b. Motor Leg Right: no drift - Limb Ataxia 7. Limb Ataxia: absent - Sensory 8. Sensory: normal - Best Language 9. Best Language: no aphasia - Dysarthria 10. Dysarthria: intubated or other barrier - Extinction and Inattention 11. Extinction/Inattention: no abnormality - Scoring Total Score: 0 Stroke Severity: No Stroke Symptoms
--- NOTE | 2017-06-21 17:50 | Cat Scan Report ---
FINAL REPORT EXAM: CT HEAD/BRAIN WO CON HISTORY: sz, josue, htn TECHNIQUE: CT examination of the head without IV contrast PRIORS: 12/30/2016 FINDINGS: No acute air-fluid level visualized in the included air-filled sinuses. Bone windows demonstrate no acute fracture. The brain is without mass, mass effect, hemorrhage, or acute infarct. There is no extra-axial intracranial bleed, brain bleed, or midline shift. The ventricles and sulci are age-appropriate. IMPRESSION: No acute CVA, intracranial bleed, or brain mass
[2017-06-21 18:44] VITALS: BP 167/89
[2017-06-21] MEDS ORDERED: KEPPRA 1,000 MG/NS 0.75% 100ML 1,000 MG/100 ML BAG IV SCH (22:00)
== END 2017-06-21 19:39 | disposition home or self-care (01) ==
LOC: ED 13:58
DX: R56.9 Unspecified convulsions (principal); I10 Essential (primary) hypertension; F17.200 Nicotine dependence, unspecified, uncomplicated
CPT/HCPCS: 36415; 70450; 80048; 80177; 83735; 85027; 96365; 99284; J1953

== ENCOUNTER 2017-06-21 22:44 | Inpatient (IN) | payer MEDICARE ==
[2017-06-21] MEDS ORDERED: ATIVAN IV ONE (23:03)
--- NOTE | 2017-06-21 23:05 | Emergency Department Report ---
ED Seizure HPI - General Chief Complaint: Seizure Stated Complaint: SEIZURE Time Seen by Provider: 06/21/17 22:58 Source: patient, EMS Mode of arrival: Stretcher Limitations: No Limitations - History of Present Illness Initial Comments: 66-year-old female with a past medical history hypertension, bipolar, and seizures presents to the hospital status post seizure. Patient was just seen earlier this evening by me for the same complaint. Patient states she had 2 seizures yesterday and 2 sutures prior to arrival earlier today. Lab work revealed mild hypokalemia. Patient received by mouth potassium. CT head was negative. Patient received 1 g of Keppra without any further seizure activity in the ED prior to discharge. Blood pressure was noted to be elevated but improved after clonidine 0.2 mg prior to discharge. The patient presents now alert and oriented 3 stated she had another seizure and denies any physical complaints at this time. Patient states the pain with all her medication - Related Data Home Medications Medication Instructions Recorded Confirmed Last Taken Meloxicam [Mobic] 7.5 mg PO DAILY 12/30/16 12/30/16 Unknown Previous Rx's Medication Instructions Recorded Last Taken Type Hydrochlorothiazide [HCTZ] 25 mg PO DAILY #30 tablet 01/03/17 Unknown Rx levETIRAcetam [Keppra TAB] 750 mg PO BID #30 tablet 01/03/17 Unknown Rx oxyCODONE /ACETAMINOPHEN [Percocet 1 tab PO Q6H PRN #7 tablet 01/03/17 Unknown Rx 5/325 mg] Allergies Allergy/AdvReac Type Severity Reaction Status Date / Time No Known Allergies Allergy Unverified 07/12/16 21:03 ED Review of Systems ROS: Stated complaint: SEIZURE Other details as noted in HPI Comment: All other systems reviewed and negative ED Past Medical Hx - Past Medical History Previous Medical History?: Yes Hx Hypertension: Yes Hx Seizures: Yes Hx Psychiatric Treatment: Yes (Bipolar) - Surgical History Past Surgical History?: No - Social History Smoking Status: Never Smoker - Medications Home Medications: Home Medications Medication Instructions Recorded Confirmed Last Taken Type Meloxicam [Mobic] 7.5 mg PO DAILY 12/30/16 12/30/16 Unknown History Hydrochlorothiazide [HCTZ] 25 mg PO DAILY #30 tablet 01/03/17 Unknown Rx levETIRAcetam [Keppra TAB] 750 mg PO BID #30 tablet 01/03/17 Unknown Rx oxyCODONE /ACETAMINOPHEN [Percocet 1 tab PO Q6H PRN #7 tablet 01/03/17 Unknown Rx 5/325 mg] ED Physical Exam - General Limitations: No Limitations - Other Other exam information: General: No limitations, patient is alert in no acute distress Head exam: Atraumatic, normocephalic Eyes exam: Normal appearance, pupils equal reactive to light, extraocular movements intact ENT: Moist mucous membrane, normal oropharynx Neck exam: Normal inspection, full range of motion, no meningismus nontender Respiratory exam: Clear to auscultation bilateral, no wheezes, rales, crackles Cardiovascular: Normal rate and rhythm, normal heart sounds Abdomen: Soft, nondistended, and nontender, with normal bowel sounds, no rebound, or guarding Extremity: Full range of motion normal inspection no deformity Back: Normal Inspection, full range of motion, no tenderness Neurologic: Alert, oriented x3, cranial nerves intact, no motor or sensory deficit Psychiatric: normal affect, normal mood Skin: Warm, dry, intact ED Course Vital Signs 06/21/17 23:21 Temperature 98.1 F Pulse Rate 72 Respiratory 14 Rate Blood Pressure 162/84 [Left] O2 Sat by Pulse 100 Oximetry - Reevaluation(s) Reevaluation #1: 06/21/17 23:06 Seizure precautions ED Medical Decision Making - Medical Decision Making Patient continues to have seizures despite stating she's been compliant with her medication and even after receiving 1 g of Keppra in the ED. 1 mg of Ativan given empirically to prevent further seizure activity throughout the night. Patient will be admitted to the hospital for further treatment and evaluation. Vitals stable, accucheck ok. Initial labs and ct no repeated - Differential Diagnosis seizure, pseudoseizure Critical Care Time: No Critical care attestation.: If time is entered above; I have spent that time in minutes in the direct care of this critically ill patient, excluding procedure time. ED Disposition Clinical Impression: Seizure, HTN (hypertension), Bipolar disorder Disposition: OP ADMIT IP TO THIS HOSP Is pt being admited?: Yes Condition: Stable Time of Disposition: 23:35 (Dr moreland/hosp)
[2017-06-21] MEDS ORDERED: CORDARONE IV ONE (23:15)
[2017-06-22] MEDS ORDERED: TYLENOL PO PRN (00:45)
[2017-06-22] MEDS ORDERED: HEPARIN ONE (01:16)
[2017-06-22] MEDS: HEPARIN SUB-Q SCH ×3 (01:21→21:29)
[2017-06-22] MEDS: ATIVAN IV PRN ×3 (05:03→23:56)
--- NOTE | 2017-06-22 06:04 | History and Physical Report ---
CHIEF COMPLAINT: Seizure attack. HISTORY OF PRESENT ILLNESS: The patient is a 66-year-old female with past medical history of seizure disorder, bipolar disorder, hypertension, who presented to the emergency room because of seizure attack. The patient came into the Emergency Room earlier and had two seizure attacks. Prior to arrival to the Emergency Room, she also was noted to have had seizure a day before presenting to the Emergency Room. She was seen before for seizure attack and was noted to have slight decrease in potassium level, which was treated with oral potassium and had a CT of the head showing no acute lesion. The patient received 1 gram of Keppra and did not have any more seizures in the Emergency Room and was discharged back to where she came from. Blood pressure was also treated with clonidine after elevated value. The patient was brought back after she had another seizure attack at home following discharge. There is no history of nausea, vomiting. No history of fever or chills. No history of chest pain and shortness of breath and the patient was given a dose of Ativan prior to being evaluated by me. PAST MEDICAL HISTORY: Pertinent for seizure disorder, hypertension, bipolar disorder. PAST SURGICAL HISTORY: Unremarkable. FAMILY HISTORY: Noncontributory. SOCIAL HISTORY: The patient smoke cigarettes, does not drink alcohol and does not use illicit drugs. MEDICATIONS: The patient is on meloxicam 7.5 mg by mouth daily, thiazide 25 mg by mouth daily, Keppra 750 mg by mouth twice daily, Percocet 5/325 mg by mouth every 6 hours. ALLERGIES: There are no known drug allergies. REVIEW OF SYSTEMS: CONSTITUTIONAL: There is no fever, no chills. No diaphoresis. HEENT: There is no headache or sore throat. CARDIOVASCULAR: There is no chest pain or orthopnea. RESPIRATORY: There is no shortness of breath or cough. GASTROINTESTINAL: There is no nausea, no vomiting, no abdominal pain, diarrhea or constipation. NEUROLOGICAL: Seizure attack present. No dizziness. MUSCULOSKELETAL: There is no joint pain or swelling. DERMATOLOGICAL: There is no skin rash or itching. GENITOURINARY: There is no dysuria, hematuria or flank pain. Rest of system review is normal. PHYSICAL EXAMINATION: GENERAL: At the time of exam, the patient was sleeping and was not in acute distress. VITAL SIGNS: Shows temperature of 99.6 degrees Fahrenheit, pulse of 71, respirations of 16, blood pressure was as high as 222/102, which later on came down to 167/89, O2 sat of 99% on room air. HEENT: Pupils to be equal, round, reactive to light and accommodating. Extraocular muscles are intact. NECK: Supple with no JVD or carotid bruit. CARDIOVASCULAR: Showed normal first and second heart sounds with no gallops or murmurs. RESPIRATORY: Show good air entry on both sides of the lung with no abnormal breath sounds. GASTROINTESTINAL SYSTEM: Show abdomen to be full, soft, nontender with no organomegaly or rigidity. NEUROLOGICAL: Shows no focal deficit. MUSCULOSKELETAL SYSTEM: Show no joint swelling or tenderness. DERMATOLOGICAL SYSTEM: Show no skin rash. GENITOURINARY: Showing no costovertebral angle tenderness. PERTINENT LABORATORY DATA AND IMAGING STUDIES: The patient has CBC done that came back unremarkable. The patient's chemistry shows slight decrease in potassium level of 3.5, otherwise, unremarkable. IMAGING STUDIES: The patient had CT of the head without contrast done that shows no acute intracranial lesion. DIAGNOSIS: Recurrent seizure attack. PLAN: The patient will be admitted to medical floor on telemetry and will have Neurology consult with Dr. Rai. The patient will have basic metabolic panel checked in the morning to monitor potassium and will be on p.r.n. medications like Tylenol 650 mg by mouth every 4 hours for fever and headache and the patient will be on IV Ativan 1 mg every 2 hours as needed for seizure disorder and will be on IV Keppra 750 mg daily. DVT prophylaxis will be through heparin 5000 units subcutaneous q. 12 hours and the patient will be on oxygen by nasal cannula at 2 liter per minute. The patient's home medications will be applied as shown in the medication reconciliation section. JOB# [id number] OCN/NTS JAVIER
[2017-06-22] MEDS: APRESOLINE IV PRN ×2 (06:09→21:30)
[2017-06-22 06:43] LABS: BUN/Creatinine Ratio 20; Blood Urea Nitrogen 12 mg/dL (7-17); Calcium 9.4 mg/dL (8.4-10.2); Hemolysis Index 17
[2017-06-22] MEDS: HCTZ PO SCH (09:00)
[2017-06-22] MEDS ORDERED: KEPPRA 750 MG in NACL 0.9% 100 ML IV SCH (10:00)
--- NOTE | 2017-06-22 12:29 | History and Physical Report ---
History of Present Illness Date of examination: 06/22/17 Date of admission: 06/22/17 00:39 Chief complaint: FOCUSED NEUROLOGY CONSULT NOTE CC: I am asked to see this 66 F for seizures HPI: from chart, pt is post ictal this am and was given ativan. she has an hx of HTN (ADMISSION, and Sz disorder, and Bipolar affective dieorder. After a breakthrough Sz she came to the ED, recieved 1000 mg of Keppra IV, had no futher Sz, was sent home, only to return next day after another Sz. She recieved more Keppra and was placed on Keppra 750 mg BID. This am at 5:00 am she apparently had another Sz, was given Ativan IV and now at 0800 hrs is sl groggy and post ictal as well. Head CT is normal (images reviewed). No sig chem abn. ROS: not possible at this time NEURO EXAM: HEENT: Nl, no trauma NECK: supple no bruits COR: no m, rubs MS: arousable, speech sparse but does say intelligible words, follow some commands - can show me two fingers and thumb +with her left hand on command, slitighty less well performed with her right hand. CN II - 12: nl, EOM full without nystag, vis root full to finger confront, pupils both 4 mm diam and react to bright light. No facial assyml MOT: nl strength all four extem prox and dist SENS: denies loss to touch all four extrem. CEREB: fnf fairly well performed bilat DTSs: 1+ and symm all four extrem prox and dist, great toes moot in their response to plantar stim bilat. GAIT: not tested as pt is sl groggy on the Ativan - fall risk DX IMP: 1. Seizure disorder, with breakthrough Sz secondary to inadequate AED levels. The patient weighs 216 lbs. 2. HTN 3. Other med dxs as above RECC: 1. Increase Keppra to 1000 mg po BID 2. Control BP 3. Will get EEG. 4. Go from there. Discussed with Dr. Barron. Azul Rai MD Medications and Allergies Allergies Allergy/AdvReac Type Severity Reaction Status Date / Time No Known Allergies Allergy Unverified 07/12/16 21:03 Home Medications Medication Instructions Recorded Confirmed Last Taken Type Meloxicam [Mobic] 7.5 mg PO DAILY 12/30/16 06/22/17 Unknown History Hydrochlorothiazide [HCTZ] 25 mg PO DAILY #30 tablet 01/03/17 06/22/17 Unknown Rx levETIRAcetam [Keppra TAB] 750 mg PO BID #30 tablet 01/03/17 06/22/17 Unknown Rx Active Meds: Active Medications Acetaminophen (Tylenol) 650 mg PO Q4H PRN PRN Reason: For Pain/Fever/Headache Heparin Sodium (Porcine) (Heparin) 5,000 unit SUB-Q Q12HR [facility] Last Admin: 06/22/17 09:00 Dose: 5,000 unit Hydralazine HCl (Apresoline) 10 mg IV Q6H PRN PRN Reason: Hypertension Last Admin: 06/22/17 06:09 Dose: 10 mg Hydrochlorothiazide (Hctz) 25 mg PO DAILY [facility] Last Admin: 06/22/17 09:00 Dose: 25 mg Levetiracetam 750 mg/ Sodium (Chloride) 107.5 mls @ 400 mls/hr IV Q12HR [facility] Last Admin: 06/22/17 11:53 Dose: 400 mls/hr Lorazepam (Ativan) 1 mg IV Q2H PRN PRN Reason: Seizures Last Admin: 06/22/17 05:03 Dose: 1 mg Oxycodone/Acetaminophen (Percocet 5/325) 1 tab PO Q6H PRN PRN Reason: Pain, Moderate (4-6) Physical Examination - Vital Signs Vital Signs: Vital Signs Pulse Resp 83 20 06/21/17 22:44 06/21/17 22:44 Results - Laboratory Findings CBC and BMP: 06/22/17 05:25 Abnormal Lab Findings: Abnormal Labs 06/22/17 05:25 Creatinine 0.6 L Glucose 106 H
[2017-06-22] MEDS ORDERED: KEPPRA 1,000 MG/NS 0.75% 100ML 1,000 MG/100 ML BAG IV ONE (14:00)
[2017-06-22] MEDS: KEPPRA 1,000 MG/NS 0.75% 100ML 1,000 MG/100 ML BAG IV SCH (21:30)
[2017-06-23] MEDS: APRESOLINE IV PRN (04:50)
[2017-06-23] MEDS: PERCOCET 5/325 PO PRN (10:15)
[2017-06-23] MEDS: KEPPRA 1,000 MG/NS 0.75% 100ML 1,000 MG/100 ML BAG IV SCH ×3 (10:16→21:15)
[2017-06-23] MEDS: HEPARIN SUB-Q SCH ×2 (10:16→21:14)
[2017-06-23] MEDS: HCTZ PO SCH (10:20)
--- NOTE | 2017-06-23 10:44 | Progress Note ---
Subjective Date of service: 06/23/17 Principal diagnosis: seizures Interval history: NEUROLOGY PROGRESS NOTE: Patient apparently had three seizures last night between 9 and 11 pm. Nurses are alerted to this from the security monitor which shows a marked increase in HR. When they go to the patient's room to investigate, they find the patient seizing and administer Ativan. Today on exam, the patient is very alert and cooperative, here speech is fluent and clear without errors, but she speaks tangentially and off topic. She says that she lives with "strangers", in a "fpc" and has been there only "two weeks". She says that she has lived in other nursing homes, but cannot recall the names of any. She believes she in now in the [place], cannot name the year or president, but can show me two fingers and a thumb with her left and right hand on command. She says she does not feel right in the head, but denies headache. Her tongue is bitten both on the right and the left. EEG yesterday: Fairly well developed and well regulated 9 Hz alpha. During drowsiness voltages attenuate and frequencies slow. Brief stage II sleep is attended by sleep spindles. IMP: Normal awake and asleep EEG. There is specifically no focal, lateralizing , or epileptiform abnormality. DX IMP: 1. Abnormal mental status secondary to a thought disorder. WHEN HAVE A HUGE LACK OF INFORMATION HERE, re where she comes from, who she lives with, about this "fpc"...the other "fpc". Why does this 66 yo have to live in a fpc? Not clear. She carries a Dx of Bipolar affective disorder, but maybe this is with psychotic features or Schizo-affective disorder. Her present mental status is not secondary to Ativan effect before midnight last night, and is not just post ictal "confusion". The EEG yesterday was Normal. 2. Seizures not controlled on Keppra 1000 mg q 12 hrs 3. BP not controlled with systolics still ranging in the 180s RECC: 1. GET MORE INFO RE PRIOR HX, where she lives, family, what she does, AND DIAGNOSES....[employer]? 2. Get CBC, LFTs, complete chem panel including Mg++ 3. Load with Dilantin 1000 mg IV over one hour, then 100 mg q 8 hrs. 4. Control BP 5. Go from there. Azul Rai MD Objective - Vital Sign Vital Signs - 12hr 06/23/17 06/23/17 06/23/17 00:03 01:39 04:26 Temperature 98.9 F Pulse Rate 91 H 72 78 Respiratory 20 Rate Blood Pressure 181/84 198/94 Blood Pressure 181/84 [Left] O2 Sat by Pulse 92 94 96 Oximetry 06/23/17 07:33 Temperature 98.3 F Pulse Rate 103 H Respiratory 20 Rate Blood Pressure 190/85 Blood Pressure [Left] O2 Sat by Pulse 97 Oximetry - Laboratory Findings CBC and BMP: 06/22/17 05:25 Abnormal Lab Findings: Abnormal Labs 06/22/17 05:25 Creatinine 0.6 L Glucose 106 H
[2017-06-23] MEDS ORDERED: KEPPRA 1,000 MG in NACL 0.9% 100 ML IV STA (12:13)
[2017-06-23] MEDS: DIOVAN PO SCH ×2 (12:35→21:14)
[2017-06-23 13:29] LABS: Basophils % (Auto) 0.2 % (0.0-1.8); Hematocrit 40.2 % (30.3-42.9); Hemoglobin 13.4 gm/dl (10.1-14.3); Lymphocytes # (Auto) 1.3 K/mm3 (1.2-5.4); Lymphocytes % (Auto) 10.7 % (13.4-35.0); Mean Corpuscular HGB Conc 33 % (30-34); Mean Corpuscular Hemoglobin 30 pg (28-32); Mean Corpuscular Volume 89 fl (79-97); Monocytes # (Auto) 1.1 K/mm3 (0.0-0.8); Monocytes % (Auto) 8.6 % (0.0-7.3); Platelet Count 210 K/mm3 (140-440); Red Blood Count 4.53 M/mm3 (3.65-5.03); Red Cell Distribution Width 14.2 % (13.2-15.2)
[2017-06-23 13:43] LABS: Alanine Aminotransferase 15 units/L (7-56); Albumin 3.8 g/dL (3.9-5); BUN/Creatinine Ratio 28; Blood Urea Nitrogen 17 mg/dL (7-17); Calcium 9.1 mg/dL (8.4-10.2); Hemolysis Index 2
--- NOTE | 2017-06-23 14:04 | Progress Note ---
Subjective Date of service: 06/23/17 Principal diagnosis: seizures Interval history: NEUROLOGY PROGRESS NOTE: CORRECTION: EEG I commented on in earlier progess note was done at an earlier time. EEG TODAY (the only one done this admission) showed a background of 9 - 12 Hz activity, poorly regulated. During the tracing the patient did have a tonic seizure, with lipsmacking then jaw clenching adn stiffenting of arm and legs, no clonic activity. The EEG showed a build up of increasingly higher 5-6 Hz theta, then the actual Sz, then post ictal slowing of the record. The patient was able to talk to the tech two or three minutes later (not seconds), with her "crazy talk". There were no other spells or seizures. IMP: Abnormal EEG due to the occurrence of a tonic seizure. Clinical correlation noted. Further Hx: Nursing staff have heard her say repeatedly " I am going to ", "I am going to today" "My daughter put a [employer] curse on me" etc IMP: 1. Seizure disorder, with breakthrough tonic seizures. 2. Schizo-affective disorder. RECC: 1. Continue the current Keppra 1000 mg BID and now Dilantin, after a 1000mg load today, at 100 mg q 8 hrs 2. Still need more info re Hx as per my prior note of this date 3. Get a psychiatry consult to give best med reccs re her psych diagnosis. Azul Rai MD Objective - Vital Sign Vital Signs - 12hr 06/23/17 06/23/17 04:26 07:33 Temperature 98.3 F Pulse Rate 78 103 H Respiratory 20 Rate Blood Pressure 198/94 190/85 O2 Sat by Pulse 96 97 Oximetry - Laboratory Findings CBC and BMP: 06/23/17 12:30 06/23/17 12:30 Abnormal Lab Findings: Abnormal Labs 06/22/17 06/23/17 06/23/17 05:25 12:30 12:30 WBC 12.4 H Lymph % (Auto) 10.7 L Fisher % (Auto) 8.6 H Fisher # 1.1 H Seg Neutrophils % 80.5 H Seg Neutrophils # 10.0 H Sodium 135 L Potassium 3.0 L D Chloride 94.7 L Creatinine 0.6 L 0.6 L Glucose 106 H 159 H Phosphorus 2.10 L Albumin 3.8 L
--- NOTE | 2017-06-23 14:13 | Progress Note ---
Assessment and Plan Assessment and plan: 66F pw multiple seizure status epilepticus Case is discussed with neurology, given a Keppra bolus and changed to 1 g TID, EEG pending check cbc, cmp, mg, phos metabolic encephalopathy due to post ictal state, supportive care Hypertensive urgency Optimize blood pressure medications Bipolar disorder continue behavioral medications tobacco abuse nicotine patch prn History Interval history: Patient had 2 seizures since yesterday, was confused after the seizure. Confusion has now resolved Review of systems Constitutional: No fevers, no malaise, no joint pains CVS: No chest pain, no orthopnea, no dyspnea on exertion, no pedal edema GI: No abdominal pain, no diarrhea, no vomiting, no constipation Respiratory: No shortness of breath, no wheezing, no coughing Hospitalist Physical - Physical exam Narrative exam: General.: Appears well, no distress, nontoxic HEENT: Moist mucous membranes, extraocular muscles intact, no lymphadenopathy Neck: supple Cardiac: S1-S2 heard Lungs: clear to auscultation bilaterally Abdomen: soft , nontender, nondistended, bowel sounds positive Extremities: no edema clubbing or cyanosis Skin: no rash or lesions Neurologic: no gross focal deficits Psych: appropriate behavior, appropriate mood, corporative, judgment intact - Constitutional Vitals: Temp Pulse Resp BP Pulse Ox 98.3 F 103 H 20 190/85 97 06/23/17 07:33 06/23/17 07:33 06/23/17 07:33 06/23/17 07:33 06/23/17 07:33 Results - Labs CBC & Chem 7: 06/23/17 12:30 06/23/17 12:30 Labs: Laboratory Last Values WBC 12.4 K/mm3 (4.5-11.0) H 06/23/17 12:30 RBC 4.53 M/mm3 (3.65-5.03) 06/23/17 12:30 Hgb 13.4 gm/dl (10.1-14.3) 06/23/17 12:30 Hct 40.2 % (30.3-42.9) 06/23/17 12:30 MCV 89 fl (79-97) 06/23/17 12:30 MCH 30 pg (28-32) 06/23/17 12:30 MCHC 33 % (30-34) 06/23/17 12:30 RDW 14.2 % (13.2-15.2) 06/23/17 12:30 Plt Count 210 K/mm3 (140-440) 06/23/17 12:30 Lymph % (Auto) 10.7 % (13.4-35.0) L 06/23/17 12:30 [place] % (Auto) 8.6 % (0.0-7.3) H 06/23/17 12:30 Eos % (Auto) 0.0 % (0.0-4.3) 06/23/17 12:30 Baso % (Auto) 0.2 % (0.0-1.8) 06/23/17 12:30 Lymph # 1.3 K/mm3 (1.2-5.4) 06/23/17 12:30 [place] # 1.1 K/mm3 (0.0-0.8) H 06/23/17 12:30 Eos # 0.0 K/mm3 (0.0-0.4) 06/23/17 12:30 Baso # 0.0 K/mm3 (0.0-0.1) 06/23/17 12:30 Seg Neutrophils % 80.5 % (40.0-70.0) H 06/23/17 12:30 Seg Neutrophils # 10.0 K/mm3 (1.8-7.7) H 06/23/17 12:30 Sodium 135 mmol/L (137-145) L 06/23/17 12:30 Potassium 3.0 mmol/L (3.6-5.0) L D 06/23/17 12:30 Chloride 94.7 mmol/L (98-107) L 06/23/17 12:30 Carbon Dioxide 24 mmol/L (22-30) 06/23/17 12:30 Anion Gap 19 mmol/L 06/23/17 12:30 BUN 17 mg/dL (7-17) 06/23/17 12:30 Creatinine 0.6 mg/dL (0.7-1.2) L 06/23/17 12:30 Estimated GFR > 60 ml/min 06/23/17 12:30 BUN/Creatinine Ratio 28 % 06/23/17 12:30 Glucose 159 mg/dL (65-100) H 06/23/17 12:30 POC Glucose 103 (70-105) 06/21/17 23:16 Calcium 9.1 mg/dL (8.4-10.2) 06/23/17 12:30 Phosphorus 2.10 mg/dL (2.5-4.5) L 06/23/17 12:30 Magnesium 2.00 mg/dL (1.7-2.3) 06/23/17 12:30 Total Bilirubin 0.40 mg/dL (0.1-1.2) 06/23/17 12:30 AST 16 units/L (5-40) 06/23/17 12:30 ALT 15 units/L (7-56) 06/23/17 12:30 Alkaline Phosphatase 104 units/L (35-129) 06/23/17 12:30 Total Protein 6.9 g/dL (6.3-8.2) 06/23/17 12:30 Albumin 3.8 g/dL (3.9-5) L 06/23/17 12:30 Albumin/Globulin Ratio 1.2 % 06/23/17 12:30
[2017-06-23] MEDS ORDERED: DILANTIN 1,000 MG in NACL 0.9% 250ML 250 ML IV ONE (17:00)
[2017-06-23] MEDS: DILANTIN PO SCH (21:38)
[2017-06-23] MEDS ORDERED: DILANTIN PO SCH (22:00)
[2017-06-24] MEDS: APRESOLINE IV PRN ×2 (01:08→06:22)
[2017-06-24] MEDS: ATIVAN IV PRN (03:18)
[2017-06-24] MEDS: KEPPRA 1,000 MG/NS 0.75% 100ML 1,000 MG/100 ML BAG IV SCH (05:01)
[2017-06-24] MEDS: DILANTIN PO SCH ×3 (06:21→22:02)
--- NOTE | 2017-06-24 09:00 | Progress Note ---
Assessment and Plan Assessment and plan: 66F pw multiple seizure status epilepticus cont AEDs, now improved metabolic encephalopathy due to post ictal state, supportive care Hypertensive urgency Optimize blood pressure medications hypokalemia/hypophosphatemia replete IV Bipolar disorder continue behavioral medications tobacco abuse nicotine patch prn History Interval history: no further seizures Review of systems Constitutional: No fevers, no malaise, no joint pains CVS: No chest pain, no orthopnea, no dyspnea on exertion, no pedal edema GI: No abdominal pain, no diarrhea, no vomiting, no constipation Respiratory: No shortness of breath, no wheezing, no coughing Hospitalist Physical - Physical exam Narrative exam: General.: Appears well, no distress, nontoxic HEENT: Moist mucous membranes, extraocular muscles intact, no lymphadenopathy Neck: supple Cardiac: S1-S2 heard Lungs: clear to auscultation bilaterally Abdomen: soft , nontender, nondistended, bowel sounds positive Extremities: no edema clubbing or cyanosis Skin: no rash or lesions Neurologic: no gross focal deficits Psych: appropriate behavior, appropriate mood, corporative, judgment intact - Constitutional Vitals: Temp Pulse Resp BP Pulse Ox 98.6 F 120 H 20 193/84 96 06/24/17 05:46 06/24/17 08:51 06/24/17 08:51 06/24/17 05:46 06/24/17 08:51 Results - Labs CBC & Chem 7: 06/23/17 12:30 06/27/17 05:57 Labs: Laboratory Last Values WBC 12.4 K/mm3 (4.5-11.0) H 06/23/17 12:30 RBC 4.53 M/mm3 (3.65-5.03) 06/23/17 12:30 Hgb 13.4 gm/dl (10.1-14.3) 06/23/17 12:30 Hct 40.2 % (30.3-42.9) 06/23/17 12:30 MCV 89 fl (79-97) 06/23/17 12:30 MCH 30 pg (28-32) 06/23/17 12:30 MCHC 33 % (30-34) 06/23/17 12:30 RDW 14.2 % (13.2-15.2) 06/23/17 12:30 Plt Count 210 K/mm3 (140-440) 06/23/17 12:30 Lymph % (Auto) 10.7 % (13.4-35.0) L 06/23/17 12:30 [place] % (Auto) 8.6 % (0.0-7.3) H 06/23/17 12:30 Eos % (Auto) 0.0 % (0.0-4.3) 06/23/17 12:30 Baso % (Auto) 0.2 % (0.0-1.8) 06/23/17 12:30 Lymph # 1.3 K/mm3 (1.2-5.4) 06/23/17 12:30 [place] # 1.1 K/mm3 (0.0-0.8) H 06/23/17 12:30 Eos # 0.0 K/mm3 (0.0-0.4) 06/23/17 12:30 Baso # 0.0 K/mm3 (0.0-0.1) 06/23/17 12:30 Seg Neutrophils % 80.5 % (40.0-70.0) H 06/23/17 12:30 Seg Neutrophils # 10.0 K/mm3 (1.8-7.7) H 06/23/17 12:30 Sodium 135 mmol/L (137-145) L 06/23/17 12:30 Potassium 3.0 mmol/L (3.6-5.0) L D 06/23/17 12:30 Chloride 94.7 mmol/L (98-107) L 06/23/17 12:30 Carbon Dioxide 24 mmol/L (22-30) 06/23/17 12:30 Anion Gap 19 mmol/L 06/23/17 12:30 BUN 17 mg/dL (7-17) 06/23/17 12:30 Creatinine 0.6 mg/dL (0.7-1.2) L 06/23/17 12:30 Estimated GFR > 60 ml/min 06/23/17 12:30 BUN/Creatinine Ratio 28 % 06/23/17 12:30 Glucose 159 mg/dL (65-100) H 06/23/17 12:30 POC Glucose 103 (70-105) 06/21/17 23:16 Calcium 9.1 mg/dL (8.4-10.2) 06/23/17 12:30 Phosphorus 2.10 mg/dL (2.5-4.5) L 06/23/17 12:30 Magnesium 2.00 mg/dL (1.7-2.3) 06/23/17 12:30 Total Bilirubin 0.40 mg/dL (0.1-1.2) 06/23/17 12:30 AST 16 units/L (5-40) 06/23/17 12:30 ALT 15 units/L (7-56) 06/23/17 12:30 Alkaline Phosphatase 104 units/L (35-129) 06/23/17 12:30 Total Protein 6.9 g/dL (6.3-8.2) 06/23/17 12:30 Albumin 3.8 g/dL (3.9-5) L 06/23/17 12:30 Albumin/Globulin Ratio 1.2 % 06/23/17 12:30
[2017-06-24] MEDS: HCTZ PO SCH (09:02)
[2017-06-24] MEDS: HEPARIN SUB-Q SCH ×2 (09:03→22:04)
[2017-06-24] MEDS ORDERED: KPHOS 45 MMOL in NACL 0.9% 500 ML 500 ML IV ONE (10:00)
[2017-06-24] MEDS: DIOVAN PO SCH ×2 (11:26→22:03)
[2017-06-24] MEDS: PROCARDIA XL PO SCH ×2 (11:28→22:02)
[2017-06-24] MEDS: KEPPRA PO SCH ×2 (13:57→22:02)
[2017-06-24] MEDS ORDERED: KEPPRA 1,000 MG/NS 0.75% 100ML 1,000 MG/100 ML BAG IV SCH (22:00)
[2017-06-25] MEDS: APRESOLINE IV PRN (00:57)
[2017-06-25] MEDS: PERCOCET 5/325 PO PRN ×2 (00:58→11:30)
[2017-06-25] MEDS: DILANTIN PO SCH ×3 (05:50→22:37)
[2017-06-25] MEDS: KEPPRA PO SCH ×3 (05:50→21:34)
[2017-06-25] MEDS: HCTZ PO SCH (11:31)
[2017-06-25] MEDS: PROCARDIA XL PO SCH ×2 (11:31→21:34)
[2017-06-25] MEDS: DIOVAN PO SCH ×2 (11:43→21:35)
[2017-06-25] MEDS: HEPARIN SUB-Q SCH ×2 (11:52→21:35)
--- NOTE | 2017-06-25 13:36 | Progress Note ---
Assessment and Plan Assessment and plan: 66F pw multiple seizure status epilepticus cont AEDs, now improved metabolic encephalopathy due to post ictal state, supportive care Hypertensive urgency Optimize blood pressure medications hypokalemia/hypophosphatemia replete IV Bipolar disorder continue behavioral medications keeps talking about how she is dying and kids are putting yazdanism on her mental health consult hypokalemia; oral supplement tobacco abuse nicotine patch prn History Interval history: no further seizures Review of systems Constitutional: No fevers, no malaise, no joint pains CVS: No chest pain, no orthopnea, no dyspnea on exertion, no pedal edema GI: No abdominal pain, no diarrhea, no vomiting, no constipation Respiratory: No shortness of breath, no wheezing, no coughing Hospitalist Physical - Physical exam Narrative exam: General.: Appears well, no distress, nontoxic HEENT: Moist mucous membranes, extraocular muscles intact, no lymphadenopathy Neck: supple Cardiac: S1-S2 heard Lungs: clear to auscultation bilaterally Abdomen: soft , nontender, nondistended, bowel sounds positive Extremities: no edema clubbing or cyanosis Skin: no rash or lesions Neurologic: no gross focal deficits Psych: keeps saying she thinks she is dying and that her kids are putting yazdanism on her, lacks insight - Constitutional Vitals: Temp Pulse Resp BP Pulse Ox 98.6 F 102 H 20 174/84 95 06/25/17 08:31 06/25/17 08:31 06/25/17 08:31 06/25/17 11:43 06/25/17 08:31 Results - Labs CBC & Chem 7: 06/23/17 12:30 06/27/17 05:57 Labs: Laboratory Last Values WBC 12.4 K/mm3 (4.5-11.0) H 06/23/17 12:30 RBC 4.53 M/mm3 (3.65-5.03) 06/23/17 12:30 Hgb 13.4 gm/dl (10.1-14.3) 06/23/17 12:30 Hct 40.2 % (30.3-42.9) 06/23/17 12:30 MCV 89 fl (79-97) 06/23/17 12:30 MCH 30 pg (28-32) 06/23/17 12:30 MCHC 33 % (30-34) 06/23/17 12:30 RDW 14.2 % (13.2-15.2) 06/23/17 12:30 Plt Count 210 K/mm3 (140-440) 06/23/17 12:30 Lymph % (Auto) 10.7 % (13.4-35.0) L 06/23/17 12:30 [place] % (Auto) 8.6 % (0.0-7.3) H 06/23/17 12:30 Eos % (Auto) 0.0 % (0.0-4.3) 06/23/17 12:30 Baso % (Auto) 0.2 % (0.0-1.8) 06/23/17 12:30 Lymph # 1.3 K/mm3 (1.2-5.4) 06/23/17 12:30 [place] # 1.1 K/mm3 (0.0-0.8) H 06/23/17 12:30 Eos # 0.0 K/mm3 (0.0-0.4) 06/23/17 12:30 Baso # 0.0 K/mm3 (0.0-0.1) 06/23/17 12:30 Seg Neutrophils % 80.5 % (40.0-70.0) H 06/23/17 12:30 Seg Neutrophils # 10.0 K/mm3 (1.8-7.7) H 06/23/17 12:30 Sodium 135 mmol/L (137-145) L 06/23/17 12:30 Potassium 3.3 mmol/L (3.6-5.0) L 06/25/17 08:25 Chloride 94.7 mmol/L (98-107) L 06/23/17 12:30 Carbon Dioxide 24 mmol/L (22-30) 06/23/17 12:30 Anion Gap 19 mmol/L 06/23/17 12:30 BUN 17 mg/dL (7-17) 06/23/17 12:30 Creatinine 0.6 mg/dL (0.7-1.2) L 06/23/17 12:30 Estimated GFR > 60 ml/min 06/23/17 12:30 BUN/Creatinine Ratio 28 % 06/23/17 12:30 Glucose 159 mg/dL (65-100) H 06/23/17 12:30 POC Glucose 103 (70-105) 06/21/17 23:16 Calcium 9.1 mg/dL (8.4-10.2) 06/23/17 12:30 Phosphorus 2.70 mg/dL (2.5-4.5) 06/25/17 08:25 Magnesium 2.00 mg/dL (1.7-2.3) 06/23/17 12:30 Total Bilirubin 0.40 mg/dL (0.1-1.2) 06/23/17 12:30 AST 16 units/L (5-40) 06/23/17 12:30 ALT 15 units/L (7-56) 06/23/17 12:30 Alkaline Phosphatase 104 units/L (35-129) 06/23/17 12:30 Total Protein 6.9 g/dL (6.3-8.2) 06/23/17 12:30 Albumin 3.8 g/dL (3.9-5) L 06/23/17 12:30 Albumin/Globulin Ratio 1.2 % 06/23/17 12:30
[2017-06-25] MEDS: NORMODYNE PO SCH ×2 (16:20→21:34)
[2017-06-26] MEDS: DILANTIN PO SCH ×3 (05:23→22:20)
[2017-06-26] MEDS: KEPPRA PO SCH ×3 (05:23→22:17)
[2017-06-26] MEDS: DIOVAN PO SCH ×2 (10:38→22:18)
[2017-06-26] MEDS: HCTZ PO SCH (10:40)
[2017-06-26] MEDS: NORMODYNE PO SCH ×2 (10:40→22:22)
[2017-06-26] MEDS: PROCARDIA XL PO SCH ×2 (10:40→22:17)
[2017-06-26] MEDS: HEPARIN SUB-Q SCH ×2 (10:41→22:19)
--- NOTE | 2017-06-26 11:20 | Event Note ---
Date: 06/26/17 Mental Health door core assembler mentions referral to Psychiatry. Not clear if this is going to be while in hospital. Will try to put in order specifically for Psychiatry to see, since we need medication advice, may need atypical antipsychotic such as Risperdal which can also help depression. I have added B6 to help irritability potentially from levetiracetam. Would suggest adding and later changing her over to lamotrigine for mood stabilization, since levetiracetam can cause behavioral problems including hallucinations. Await psychiatric opinion before starting to change her over.
--- NOTE | 2017-06-26 12:22 | Progress Note ---
Assessment and Plan Assessment and plan: 66F pw multiple seizure status epilepticus cont AEDs, now improved metabolic encephalopathy due to post ictal state, supportive care Hypertensive urgency Optimize blood pressure medications hypokalemia/hypophosphatemia repleted Bipolar disorder continue behavioral medications keeps talking about how she is dying and kids are putting evangelical on her case dw mental health home care consultant tobacco abuse nicotine patch prn History Interval history: no further seizures Review of systems Constitutional: No fevers, no malaise, no joint pains CVS: No chest pain, no orthopnea, no dyspnea on exertion, no pedal edema GI: No abdominal pain, no diarrhea, no vomiting, no constipation Respiratory: No shortness of breath, no wheezing, no coughing Hospitalist Physical - Physical exam Narrative exam: General.: Appears well, no distress, nontoxic HEENT: Moist mucous membranes, extraocular muscles intact, no lymphadenopathy Neck: supple Cardiac: S1-S2 heard Lungs: clear to auscultation bilaterally Abdomen: soft , nontender, nondistended, bowel sounds positive Extremities: no edema clubbing or cyanosis Skin: no rash or lesions Neurologic: no gross focal deficits Psych: keeps saying she thinks she is dying and that her kids are putting evangelical on her, lacks insight - Constitutional Vitals: Temp Pulse Resp BP Pulse Ox 98.7 F 81 18 148/69 92 06/26/17 07:57 06/26/17 10:40 06/26/17 04:46 06/26/17 10:38 06/26/17 04:46 Results - Labs CBC & Chem 7: 06/23/17 12:30 06/27/17 05:57 Labs: Laboratory Last Values WBC 12.4 K/mm3 (4.5-11.0) H 06/23/17 12:30 RBC 4.53 M/mm3 (3.65-5.03) 06/23/17 12:30 Hgb 13.4 gm/dl (10.1-14.3) 06/23/17 12:30 Hct 40.2 % (30.3-42.9) 06/23/17 12:30 MCV 89 fl (79-97) 06/23/17 12:30 MCH 30 pg (28-32) 06/23/17 12:30 MCHC 33 % (30-34) 06/23/17 12:30 RDW 14.2 % (13.2-15.2) 06/23/17 12:30 Plt Count 210 K/mm3 (140-440) 06/23/17 12:30 Lymph % (Auto) 10.7 % (13.4-35.0) L 06/23/17 12:30 [place] % (Auto) 8.6 % (0.0-7.3) H 06/23/17 12:30 Eos % (Auto) 0.0 % (0.0-4.3) 06/23/17 12:30 Baso % (Auto) 0.2 % (0.0-1.8) 06/23/17 12:30 Lymph # 1.3 K/mm3 (1.2-5.4) 06/23/17 12:30 [place] # 1.1 K/mm3 (0.0-0.8) H 06/23/17 12:30 Eos # 0.0 K/mm3 (0.0-0.4) 06/23/17 12:30 Baso # 0.0 K/mm3 (0.0-0.1) 06/23/17 12:30 Seg Neutrophils % 80.5 % (40.0-70.0) H 06/23/17 12:30 Seg Neutrophils # 10.0 K/mm3 (1.8-7.7) H 06/23/17 12:30 Sodium 135 mmol/L (137-145) L 06/23/17 12:30 Potassium 3.1 mmol/L (3.6-5.0) L 06/26/17 06:15 Chloride 94.7 mmol/L (98-107) L 06/23/17 12:30 Carbon Dioxide 24 mmol/L (22-30) 06/23/17 12:30 Anion Gap 19 mmol/L 06/23/17 12:30 BUN 17 mg/dL (7-17) 06/23/17 12:30 Creatinine 0.6 mg/dL (0.7-1.2) L 06/23/17 12:30 Estimated GFR > 60 ml/min 06/23/17 12:30 BUN/Creatinine Ratio 28 % 06/23/17 12:30 Glucose 159 mg/dL (65-100) H 06/23/17 12:30 POC Glucose 103 (70-105) 06/21/17 23:16 Calcium 9.1 mg/dL (8.4-10.2) 06/23/17 12:30 Phosphorus 3.50 mg/dL (2.5-4.5) D 06/26/17 06:15 Magnesium 2.00 mg/dL (1.7-2.3) 06/23/17 12:30 Total Bilirubin 0.40 mg/dL (0.1-1.2) 06/23/17 12:30 AST 16 units/L (5-40) 06/23/17 12:30 ALT 15 units/L (7-56) 06/23/17 12:30 Alkaline Phosphatase 104 units/L (35-129) 06/23/17 12:30 Total Protein 6.9 g/dL (6.3-8.2) 06/23/17 12:30 Albumin 3.8 g/dL (3.9-5) L 06/23/17 12:30 Albumin/Globulin Ratio 1.2 % 06/23/17 12:30
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
[2017-06-26] MEDS: VITAMIN B-6 PO SCH (17:42)
[2017-06-26] MEDS: K-DUR PO SCH (17:43)
[2017-06-26] MEDS: PERCOCET 5/325 PO PRN (22:18)
[2017-06-27] MEDS: KEPPRA PO SCH ×3 (05:47→21:57)
[2017-06-27] MEDS: DILANTIN PO SCH ×3 (05:48→21:57)
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
[2017-06-27] MEDS: DIOVAN PO SCH ×2 (11:08→21:57)
[2017-06-27] MEDS: HCTZ PO SCH (11:09)
[2017-06-27] MEDS: NORMODYNE PO SCH ×2 (11:10→21:58)
[2017-06-27] MEDS: PROCARDIA XL PO SCH ×2 (11:10→21:57)
[2017-06-27] MEDS: K-DUR PO SCH (11:10)
[2017-06-27] MEDS: VITAMIN B-6 PO SCH (11:11)
[2017-06-27] MEDS: HEPARIN SUB-Q SCH ×2 (11:12→21:59)
--- NOTE | 2017-06-27 15:53 | Discharge Summary ---
Providers - Providers Date of Admission: 06/22/17 00:39 Date of discharge: 06/28/17 Attending physician: DEEPIKA CARY 06/22/17 06:41 Consult to Physician [CONS] Routine Comment: Consulting Provider: ARLETTE LENZ Physician Instructions: Reason For Exam: RECURRENT SEIZURE 06/25/17 13:37 Consult to Physician [CONS] Routine Comment: Consulting Provider: STACI RAUSCH Physician Instructions: Reason For Exam: seizure 06/25/17 15:13 Consult to Mental Health [CONS] Routine Reason For Exam: behavioral disturbance Place consult to:: [facility] Notified:: yes Phone number called:: [phone] Was contact made?: Yes Time called:: 15:27 Physical Therapy Evaluation and Treat [CONS] Routine Comment: Reason For Exam: debility 06/26/17 11:14 psychiatry consult [Consult to Mental Health] [CONS] Urgent Reason For Exam: need medication recommendations please by MD Laura consult to:: Psychiatry Notified:: no Was contact made?: No 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 She was admitted to the hospital for further evaluation and management. Discharge diagnosis and management: /Seizure disorder with breakthrough status epilepticus Likely due to adequate AED level, adjusted AEDs by neurologist, now improved /Acute encephalopathy due to post ictal state, supportive care provided, improved /Hypertensive urgency Optimized blood pressure medications /hypokalemia/hypophosphatemia repleted /Bipolar disorder Case dw mental health taxation consultant, recommended outpt follow up Per collateral from Ms Tiffani Dawson at [facility], she stated that the patient's mood changes after experiencing a seizure. The patient given outpatient psy services for [facility] /tobacco abuse given nicotine patch prn Hospitalist Physical General.: Appears well, no distress, nontoxic HEENT: Moist mucous membranes, extraocular muscles intact, no lymphadenopathy Neck: supple Cardiac: S1-S2 heard Lungs: clear to auscultation bilaterally Abdomen: soft , nontender, nondistended, bowel sounds positive Extremities: no edema clubbing or cyanosis Skin: no rash or lesions Neurologic: no gross focal deficits Psych: lacks insight Disposition: - TO HOME OR SELFCARE Time spent for discharge: 32 minutes Core Measure Documentation - Palliative Care Palliative Care/ Comfort Measures: Not Applicable - Core Measures Any of the following diagnoses?: none Exam - Constitutional Vitals: Temp Pulse Resp BP Pulse Ox 98.7 F 80 20 122/63 98 06/27/17 06:14 06/27/17 11:10 06/26/17 23:40 06/27/17 06:14 06/27/17 04:15 Plan Activity: advance as tolerated Weight Bearing Status: Weight Bear as Tolerated Diet: low fat, low salt Follow up with: PRIMARY CARE, [Primary Care Provider] - 7 Days Prescriptions: Hydrochlorothiazide [HCTZ] 25 mg PO DAILY #30 tablet Labetalol [Normodyne TAB] 200 mg PO BID #60 tablet levETIRAcetam [Keppra TAB] 1,000 mg PO BID #120 tablet NIFEdipine XL [Procardia Xl] 60 mg PO Q12HR #60 tablet oxyCODONE /ACETAMINOPHEN [Percocet 5/325 mg] 1 tab PO Q6H PRN #10 tablet PRN Reason: Pain, Moderate (4-6) Phenytoin (25 mg/ml) [Dilantin] 100 mg PO Q8HR 30 Days oral.liqd Pyridoxine [Vitamin B-6] 200 mg PO QDAY #30 tablet Valsartan [Diovan] 160 mg PO BID #60 tablet
[2017-06-27] MEDS: PERCOCET 5/325 PO PRN (21:59)
[2017-06-28] MEDS: KEPPRA PO SCH ×2 (05:25→14:14)
[2017-06-28] MEDS: DILANTIN PO SCH ×2 (05:26→14:15)
[2017-06-28] MEDS: HEPARIN SUB-Q SCH (10:00)
[2017-06-28] MEDS: K-DUR PO SCH (11:19)
[2017-06-28] MEDS: VITAMIN B-6 PO SCH (11:20)
[2017-06-28] MEDS: HCTZ PO SCH (11:25)
[2017-06-28] MEDS: PROCARDIA XL PO SCH (11:25)
[2017-06-28] MEDS: DIOVAN PO SCH (11:25)
[2017-06-28 11:26] VITALS: BP 130/70
[2017-06-28] MEDS: NORMODYNE PO SCH (11:41)
--- NOTE | 2017-06-28 13:15 | Event Note ---
Date: 06/28/17 Pt was not discharge yesterday for transportation issue. getting discharge today , please see d/c summary for details.
--- NOTE | 2017-06-28 13:16 | Progress Note ---
Assessment and Plan /Seizure disorder with breakthrough status epilepticus Likely due to adequate AED level, adjusted AEDs by neurologist, now improved /Acute encephalopathy due to post ictal state, supportive care provided, improved /Hypertensive urgency Optimized blood pressure medications /hypokalemia/hypophosphatemia repleted /Bipolar disorder Case [facility] mental [facility] pricing consultant, recommended outpt follow up Per collateral from Ms Tiffani Dawson at residential, she stated that the patient's mood changes after experiencing a seizure. The patient given outpatient psy services for [facility] /tobacco abuse given nicotine patch prn Hospitalist Physical General.: Appears well, no distress, nontoxic HEENT: Moist mucous membranes, extraocular muscles intact, no lymphadenopathy Neck: supple Cardiac: S1-S2 heard Lungs: clear to auscultation bilaterally Abdomen: soft , nontender, nondistended, bowel sounds positive Extremities: no edema clubbing or cyanosis Skin: no rash or lesions Neurologic: no gross focal deficits Psych: lacks insight Subjective Date of service: 06/27/17 Principal diagnosis: seizures Interval history: Pt seen and examined Psych cleared for d/c, transportation to be arranged in the am per RN Pt has no acute issue, medically stable Objective - Constitutional Vitals: Vital Signs - 12hr 06/28/17 06/28/17 06/28/17 04:26 11:25 11:41 Temperature 98.0 F Pulse Rate 72 73 73 Respiratory 18 Rate Blood Pressure 116/54 130/70 130/70 O2 Sat by Pulse 92 Oximetry - Labs CBC & Chem 7: 06/23/17 12:30 06/27/17 05:57
== END 2017-06-28 14:49 | disposition home or self-care (01) | DRG 101 ==
LOC: ED 22:44 → 4A 06-22 00:39
PROVIDERS: ADMIT Internal Medicine; ATTEND Internal Medicine
DX: G40.901 Epilepsy, unspecified, not intractable, with status epilepticus (principal); I10 Essential (primary) hypertension; F31.9 Bipolar disorder, unspecified; E87.6 Hypokalemia; F17.210 Nicotine dependence, cigarettes, uncomplicated; I16.0 Hypertensive urgency; F25.9 Schizoaffective disorder, unspecified; E83.39 Other disorders of phosphorus metabolism
CPT/HCPCS: 36415; 80048; 80053; 82962; 83735; 84100; 84132; 85025; 95819; 99285; J0153; J0282; J0360; J1165; J1644; J1953; J2060; J7040; J7050

== ENCOUNTER 2017-07-27 22:16 | Emergency (ER) | payer MEDICARE ==
[2017-07-27 23:06] LABS: Hemoglobin 13.4 gm/dl (10.1-14.3); Mean Corpuscular HGB Conc 34 % (30-34); Mean Corpuscular Hemoglobin 31 pg (28-32); Mean Corpuscular Volume 91 fl (79-97); Platelet Count 200 K/mm3 (140-440); Red Blood Count 4.39 M/mm3 (3.65-5.03); Red Cell Distribution Width 14.4 % (13.2-15.2)
[2017-07-27 23:26] LABS: BUN/Creatinine Ratio 17; Blood Urea Nitrogen 15 mg/dL (7-17); Calcium 9.5 mg/dL (8.4-10.2); Hemolysis Index 2
[2017-07-28 00:25] LABS: Benzodiazepines Screen,Urine PRESUMPTIVE NEGATIVE; Cannabinoid Screen,Urine PRESUMPTIVE NEGATIVE; Cocaine Screen,Urine PRESUMPTIVE NEGATIVE; Methadone Screen,Urine PRESUMPTIVE NEGATIVE; Opiate Screen,Urine PRESUMPTIVE NEGATIVE
[2017-07-28 00:28] LABS: Bacteria,Urine 1+ /HPF (Negative); Bilirubin,Urine NEG (Negative); Blood,Urine NEG (Negative); Color,Urine Yellow (Yellow); Mucus,Urine FEW /HPF; Protein,Urine <15 mg/dL mg/dL (Negative)
[2017-07-28 00:36] LABS: Basophils % (Manual) 0 % (0.0-1.8); Eosinophils % (Manual) 0 % (0.0-4.3); RBC Morphology Normal; Total Cells Counted 100
[2017-07-28 00:37] LABS: Amphetamine Screen,Urine PRESUMPTIVE POSITIVE
--- NOTE | 2017-07-28 01:33 | Emergency Department Report ---
HPI - General Chief Complaint: Medical Clearance Time Seen by Provider: 07/27/17 23:21 - HPI HPI: 66-year-old female, who has a history of hypertension and bipolar disorder and seizures, presents to the emergency department with a complaint of some itching that occurs mostly at nights, as well as some generalized body aches, including in the ears and nose. The patient lives at a personal usp and appears to go to some type of day care program as well. She says that 2 days ago, she was given some lunch at this day care program that she thinks is either poisoned or was tainted and this caused her to have the above-mentioned symptoms. The patient also says that this evening they were fed dinner at the personal usp much earlier than usual and shortly afterward she began having the symptoms yet again. For this reason, the patient left the personal usp and flagged someone down driving down the street and convince them to bring her to the closest emergency department. ED Past Medical Hx - Past Medical History Hx Hypertension: Yes Hx Seizures: Yes Hx Psychiatric Treatment: Yes (Bipolar) - Surgical History Past Surgical History?: No - Social History Smoking Status: Never Smoker Substance Use Type: None - Medications Home Medications: Home Medications Medication Instructions Recorded Confirmed Last Taken Type Hydrochlorothiazide [HCTZ] 25 mg PO DAILY #30 tablet 06/27/17 Unknown Rx Labetalol [Normodyne TAB] 200 mg PO BID #60 tablet 06/27/17 Unknown Rx NIFEdipine XL [Procardia Xl] 60 mg PO Q12HR #60 tablet 06/27/17 Unknown Rx Phenytoin (25 mg/ml) [Dilantin] 100 mg PO Q8HR 30 Days oral.liqd 06/27/17 Unknown Rx Pyridoxine [Vitamin B-6] 200 mg PO QDAY #30 tablet 06/27/17 Unknown Rx Valsartan [Diovan] 160 mg PO BID #60 tablet 06/27/17 Unknown Rx levETIRAcetam [Keppra TAB] 1,000 mg PO BID #120 tablet 06/27/17 Unknown Rx oxyCODONE /ACETAMINOPHEN [Percocet 1 tab PO Q6H PRN #10 tablet 06/27/17 Unknown Rx 5/325 mg] ED Review of Systems ROS: Stated complaint: ITCHING Other details as noted in HPI Comment: All other systems reviewed and negative Constitutional: denies: chills, fever Eyes: denies: eye pain, eye discharge, vision change ENT: ear pain, throat pain Respiratory: denies: cough, shortness of breath, wheezing Cardiovascular: denies: chest pain, palpitations Gastrointestinal: denies: abdominal pain, nausea, diarrhea Genitourinary: denies: urgency, dysuria, discharge Musculoskeletal: myalgia. denies: back pain Skin: pruritus. denies: rash Neurological: denies: headache, weakness, paresthesias Physical Exam - Physical Exam Vital Signs: Vital Signs 07/27/17 22:29 Temperature 98.2 F Pulse Rate 76 Respiratory 16 Rate Blood Pressure 132/62 O2 Sat by Pulse 99 Oximetry Physical Exam: GENERAL: The patient is well-developed well-nourished. HENT: Normocephalic. Atraumatic. Patient has moist mucous membranes. Oropharynx is clear without any tonsillar hypertrophy, erythema or exudates. Normal-appearing nasal passages. EYES: Extraocular motions are intact. Pupils equal reactive to light bilaterally. NECK: Supple. Trachea is midline. CHEST/LUNGS: Clear to auscultation. There is no respiratory distress noted. HEART/CARDIOVASCULAR: Regular. There is no tachycardia. There is no murmur. ABDOMEN: Abdomen is soft, nontender. Patient has normal bowel sounds. There is no abdominal distention. SKIN: Skin is warm and dry. NEURO: The patient is awake, alert, and oriented. The patient is cooperative. The patient has no focal neurologic deficits. The patient has normal speech. MUSCULOSKELETAL: There is no tenderness or deformity. There is no limitation range of motion. There is no evidence of acute injury. PSYCH: Patient is currently calm but is seen often talking to herself. ED Course Vital Signs 07/27/17 22:29 Temperature 98.2 F Pulse Rate 76 Respiratory 16 Rate Blood Pressure 132/62 O2 Sat by Pulse 99 Oximetry ED Medical Decision Making - Lab Data Result diagrams: 07/27/17 22:48 07/27/17 22:48 - Medical Decision Making We were able to speak with the penitentiary breaker layer/test administrator, who is familiar with the patient, she says that the patient has been displaying increasingly worse and/or abnormal behavior. It sounds like she is no longer allowed to go to the psychiatric daycare. Also, despite taking the prescribed psychiatric medications compliantly, she is not showing any signs of improvement. She has been taking the psychiatric medications that were previously prescribed from a inpatient psychiatric visit and otherwise does not have any follow-up for psychiatric care outpatient. The patient displays some paranoid delusions about being poisoned. Also these delusions have led to her running out of the penitentiary in the middle of the night and getting in a random car without any regard for her own safety. I believe that these fulfill criteria to be made a 1013 and that the patient would benefit from inpatient psychiatric care and stabilization. The patient was seen by the psych integrity assessor, Daryl, who agrees with this plan and will help arrange placement. Patient's current labs are unremarkable. Vital signs have been stable thus far during her ED course. She appears medically cleared for psychiatric placement. - Differential Diagnosis bipolar disorder, schizophrenia, schizoaffective, mood disorder Critical Care Time: No Critical care attestation.: If time is entered above; I have spent that time in minutes in the direct care of this critically ill patient, excluding procedure time. ED Disposition Clinical Impression: Paranoid delusion Bipolar disorder Qualifiers: Active/Remission status: remission status unspecified Qualified Code(s): F31.9 - Bipolar disorder, unspecified Disposition: DC/TX-65 PSY HOSP/PSY UNIT Is pt being admited?: No Condition: Stable Referrals: PRIMARY CAREMD [Primary Care Provider] - 3-5 Days Time of Disposition: 02:12
[2017-07-28] MEDS ORDERED: DILANTIN PO SCH ×2 (06:00)
[2017-07-28] MEDS ORDERED: HCTZ PO SCH (10:00)
[2017-07-28] MEDS ORDERED: DIOVAN PO SCH (10:00)
[2017-07-28] MEDS ORDERED: NORMODYNE PO SCH (10:00)
[2017-07-28] MEDS ORDERED: KEPPRA PO SCH (10:00)
[2017-07-28 10:21] VITALS: BP 158/119
--- NOTE | 2017-07-28 13:22 | Consultation ---
History of Present Illness - Reason for Consult Consult date: 07/28/17 Reason for consult: Mental Health Evaluation Requesting physician: RAJIV HEATH - Chief Complaint Chief complaint: "I was poisoned" - History of Present Psychiatric Illness 66-year-old female, who has a history of hypertension. The patient presenting to the ER for itching that occurs mostly at nights, as well as some generalized body aches. Also, the patient think she was poisoned at her retirement. Today the patient is calm and cooperative during the assessment. She stated that she is the "only" person being poisoned. She stated walking into the street and convincing a random stranger to bring her to the ER. She stated this is a ongoing thing (being poisoned). She denies erratic sleep. She denies SI/HI's and AVH's. She denies recreational drug use and alcohol consumption (etoh). She could not explain why she was positive for amphetamines. Medications and Allergies Allergies Allergy/AdvReac Type Severity Reaction Status Date / Time No Known Allergies Allergy Unverified 07/12/16 21:03 Home Medications Medication Instructions Recorded Confirmed Last Taken Type Hydrochlorothiazide [HCTZ] 25 mg PO DAILY #30 tablet 06/27/17 07/28/17 Unknown Rx Labetalol [Normodyne TAB] 200 mg PO BID #60 tablet 06/27/17 07/28/17 Unknown Rx NIFEdipine XL [Procardia Xl] 60 mg PO Q12HR #60 tablet 06/27/17 07/28/17 Unknown Rx Phenytoin (25 mg/ml) [Dilantin] 100 mg PO Q8HR 30 Days oral.liqd 06/27/1707/28 Unknown Rx Pyridoxine [Vitamin B-6] 200 mg PO QDAY #30 tablet 06/27/17 07/28/17 Unknown Rx Valsartan [Diovan] 160 mg PO BID #60 tablet 06/27/17 07/28/17 Unknown Rx levETIRAcetam [Keppra TAB] 1,000 mg PO BID #120 tablet 06/27/17 07/28/17 Unknown Rx Past psychiatric history - Past Medical History Past Medical History: hypertension, seizures Past Surgical History: No surgical history - past Psychiatric treatment and history psychiatric treatment history: Would not confirm or deny a mental health dx. Denies a fam psy hx. - Social History Social history: other (Reside at a retirement) Mental Status Exam - Vital signs Last Vital Signs Temp 98 F 07/28/17 09:45 Pulse 87 07/28/17 10:22 Resp 18 07/28/17 09:45 BP 158/119 07/28/17 10:22 Pulse Ox 98 07/28/17 09:45 - Exam Narrative exam: MSE: Appearance: calm, cooperative Behavior: regular eye contact Speech: regular rate and tone Mood: "okay" Affect: congruent to mood Thought Process: circumstantial Thought Content: denies SI/HI's and AVH's, delusional, paranoid Motor Activity: lying in bed Cognition: A/O x 3 Insight: variable Judgment: variable Results Result Diagrams: 07/27/17 22:48 07/27/17 22:48 Abnormal lab results 07/27/17 07/27/17 07/27/17 Range/Units 22:48 22:48 22:48 Lymphocytes % (Manual) (13.4-35.0) % Glucose 103 H (65-100) mg/dL Salicylates 0.5 L (2.8-20.0) mg/dL Acetaminophen < 5.0 L (10.0-30.0) ug/mL Phenytoin (10.0-20.0) ug/mL 07/27/17 07/28/17 Range/Units 22:48 02:22 Lymphocytes % (Manual) 37.0 H (13.4-35.0) % Glucose (65-100) mg/dL Salicylates (2.8-20.0) mg/dL Acetaminophen (10.0-30.0) ug/mL Phenytoin 7.1 L (10.0-20.0) ug/mL All other labs normal. Assessment and Plan Assessment and plan: Impression: Unspecified Psychosis. Today the patient is calm and cooperative during the assessment. UDS positive for amphetamines. DDx: R/O Bipolar DO with psychosis, R/O Schizophrenia, R/O Substance Induced Psychosis Recommendation/Plan: Continue 1013 with placement to [facility] today.
== END 2017-07-28 10:33 ==
LOC: ED 22:16
DX: F31.9 Bipolar disorder, unspecified (principal); F22 Delusional disorders; I10 Essential (primary) hypertension
CPT/HCPCS: 36415; 80048; 80185; 80307; 81001; 85007; 85025; 99285; G0480; 80320

== ENCOUNTER 2018-05-09 13:22 | Emergency (ER) | payer MEDICARE ==
--- NOTE | 2018-05-09 13:49 | Emergency Department Report ---
Blank Doc - Documentation Documentation: This is a 67-year-old female that presents with medicatoin refill, constipation, and social work coordinator needed. This initial assessment/diagnostic orders/clinical plan/treatment(s) is/are subject to change based on patient's health status, clinical progression and re- assessment by fellow clinical providers in the ED. Further treatment and workup at subsequent clinical providers discretion. Patient/guardians urged not to elope from the ED as their condition may be serious if not clinically assessed and managed. Initial orders include: 1- Patient sent to [facility] for further evaluation and treatment 2- xray 3- social work coordinator called
--- NOTE | 2018-05-09 15:23 | XRay Report ---
ABDOMINAL SERIES: History: Abdominal pain. Supine and upright views of the abdomen and frontal view of the chest are submitted. There is gas mixed with moderate stool throughout the colon. There are no dilated loops of bowel or air-fluid levels. There is no free intraperitoneal gas. The lungs are clear. IMPRESSION: Fecal retention.
[2018-05-09] MEDS ORDERED: KEPPRA PO ONE (15:56)
--- NOTE | 2018-05-09 16:07 | Emergency Department Report ---
ED Recheck HPI - General Chief Complaint: Medical Clearance Stated Complaint: SEIZURE MEDCATION NEEDED/HEART BURN Time Seen by Provider: 05/09/18 13:35 Source: patient Mode of arrival: Ambulatory Limitations: No Limitations - History of Present Illness Initial Comments: 67-year-old female presents to ED requesting refill on seizure medication. Patient says she takes Keppra 1000 mg twice a day. States ran out 2 days ago. Patient also requesting to see a licensed clinical social worker, patient is unhappy with personal [facility] that she is [facility]. Also reports constipation, no vomiting or fever. MD Complaint: medication refill request (keppra) -: days(s) (2) Returns Today for: request for prescription Symptoms Since Prior Visit: no new symptoms - Related Data Previous Rx's Medication Instructions Recorded Last Taken Type Labetalol [Normodyne TAB] 200 mg PO BID #60 tablet 06/27/17 Unknown Rx NIFEdipine XL [Procardia Xl] 60 mg PO Q12HR #60 tablet 06/27/17 Unknown Rx Phenytoin (25 mg/ml) [Dilantin] 100 mg PO Q8HR 30 Days oral.liqd 06/27/17 Unknown Rx Pyridoxine [Vitamin B-6 50MG TAB] 200 mg PO QDAY #30 tablet 06/27/17 Unknown Rx Valsartan [Diovan] 160 mg PO BID #60 tablet 06/27/17 Unknown Rx hydroCHLOROthiazide [HCTZ] 25 mg PO DAILY #30 tablet 06/27/17 Unknown Rx HYDROcodone/APAP 5-325 [[place] 1 each PO Q4HR PRN #12 tablet 10/20/17 Unknown Rx 5/325] Docusate Sodium [Colace] 100 mg PO BID PRN #30 capsule 05/09/18 Unknown Rx levETIRAcetam [Keppra TAB] 1,000 mg PO BID #60 tablet 05/09/18 Unknown Rx Allergies Allergy/AdvReac Type Severity Reaction Status Date / Time No Known Allergies Allergy Unverified 07/12/16 21:03 ED Review of Systems ROS: Stated complaint: SEIZURE MEDCATION NEEDED/HEART BURN Other details as noted in HPI Comment: All other systems reviewed and negative Gastrointestinal: constipation. denies: abdominal pain, nausea, vomiting ED Past Medical Hx - Past Medical History Hx Hypertension: Yes Hx Seizures: Yes Hx Psychiatric Treatment: Yes (Bipolar) - Surgical History Past Surgical History?: No - Social History Smoking Status: Former Smoker Substance Use Type: None - Medications Home Medications: Home Medications Medication Instructions Recorded Confirmed Last Taken Type Labetalol [Normodyne TAB] 200 mg PO BID #60 tablet 06/27/17 07/28/17 Unknown Rx NIFEdipine XL [Procardia Xl] 60 mg PO Q12HR #60 tablet 06/27/17 07/28/17 Unknown Rx Phenytoin (25 mg/ml) [Dilantin] 100 mg PO Q8HR 30 Days oral.liqd 06/27/17 07/28/17 Unknown Rx Pyridoxine [Vitamin B-6 50MG TAB] 200 mg PO QDAY #30 tablet 06/27/17 07/28/17 Unknown Rx Valsartan [Diovan] 160 mg PO BID #60 tablet 06/27/17 07/28/17 Unknown Rx hydroCHLOROthiazide [HCTZ] 25 mg PO DAILY #30 tablet 06/27/17 07/28/17 Unknown Rx HYDROcodone/APAP 5-325 [[place] 1 each PO Q4HR PRN #12 tablet 10/20/17 Unknown Rx 5/325] Docusate Sodium [Colace] 100 mg PO BID PRN #30 capsule 05/09/18 Unknown Rx levETIRAcetam [Keppra TAB] 1,000 mg PO BID #60 tablet 05/09/18 Unknown Rx ED Physical Exam - General Limitations: No Limitations General appearance: alert, in no apparent distress - Head Head exam: Present: atraumatic, normocephalic - Eye Eye exam: Present: normal appearance - ENT ENT exam: Present: mucous membranes moist - Neck Neck exam: Present: normal inspection - Respiratory Respiratory exam: Present: normal lung sounds bilaterally. Absent: respiratory distress - Cardiovascular Cardiovascular Exam: Present: regular rate, normal rhythm - GI/Abdominal GI/Abdominal exam: Present: soft. Absent: distended, tenderness - Extremities Exam Extremities exam: Present: normal inspection - Neurological Exam Neurological exam: Present: alert, oriented X3 - Psychiatric Psychiatric exam: Present: normal affect, normal mood - Skin Skin exam: Present: warm, dry, intact, normal color. Absent: rash ED Course Vital Signs 05/09/18 05/09/18 13:35 16:23 Temperature 98.6 F 97.8 F Pulse Rate 110 H 84 Respiratory 20 17 Rate Blood Pressure 192/96 Blood Pressure 147/104 [Right] O2 Sat by Pulse 99 99 Oximetry Critical care attestation.: If time is entered above; I have spent that time in minutes in the direct care of this critically ill patient, excluding procedure time. ED Disposition Clinical Impression: Constipation, Medication refill Disposition: TO HOME OR SELFCARE Is pt being admited?: No Condition: Stable Instructions: Constipation (ED), High Fiber Diet (ED) Prescriptions: Docusate Sodium [Colace] 100 mg PO BID PRN #30 capsule PRN Reason: Constipation levETIRAcetam [Keppra TAB] 1,000 mg PO BID #60 tablet Referrals: TANYA DOMINGUEZ MD [Primary Care Provider] - 3-5 Days Time of Disposition: 16:47
[2018-05-09 16:25] VITALS: BP 147/104
== END 2018-05-09 20:05 | disposition home or self-care (01) ==
LOC: ED 13:22
DX: K59.00 Constipation, unspecified (principal); Z76.0 Encounter for issue of repeat prescription; I10 Essential (primary) hypertension; F31.9 Bipolar disorder, unspecified; Z87.891 Personal history of nicotine dependence
CPT/HCPCS: 74022

== ENCOUNTER 2018-07-14 08:22 | Emergency (ER) | payer MEDICARE ==
--- NOTE | 2018-07-14 08:51 | Emergency Department Report ---
ED General Adult HPI - General Chief complaint: Seizure Stated complaint: LEG PAIN Time Seen by Provider: 07/14/18 08:49 Source: patient, EMS Mode of arrival: Ambulatory Limitations: No Limitations - History of Present Illness Initial comments: Patient is a 67-year-old female past medical history of seizures presents with tongue pain as going on since this morning. Patient states that she did not get her Early this morning and she feels that she had a seizure at nighttime that she bit her tongue. Patient is currently alert and oriented 3 of the than her tongue and she denies being in any pain. Patient states that she does not want to stay at her personal care facility. - Related Data Previous Rx's Medication Instructions Recorded Last Taken Type Labetalol [Labetalol 200mg TAB] 200 mg PO BID #60 tablet 06/27/17 Unknown Rx NIFEdipine XL [Procardia Xl] 60 mg PO Q12HR #60 tablet 06/27/17 Unknown Rx Phenytoin (25 mg/ml) [Dilantin] 100 mg PO Q8HR 30 Days oral.liqd 06/27/17 Unknown Rx Pyridoxine [Vitamin B-6 50MG TAB] 200 mg PO QDAY #30 tablet 06/27/17 Unknown Rx Valsartan [Diovan] 160 mg PO BID #60 tablet 06/27/17 Unknown Rx hydroCHLOROthiazide [HCTZ] 25 mg PO DAILY #30 tablet 06/27/17 Unknown Rx HYDROcodone/APAP 5-325 [[place] 1 each PO Q4HR PRN #12 tablet 10/20/17 Unknown Rx 5/325] Docusate Sodium [Colace] 100 mg PO BID PRN #30 capsule 05/09/18 Unknown Rx Chlorhexidine Mouthwash [Peridex] 15 ml MM BID #1 bottle 06/23/18 Unknown Rx levETIRAcetam [Keppra TAB] 1,000 mg PO BID #60 tablet 06/23/18 Unknown Rx Allergies Allergy/AdvReac Type Severity Reaction Status Date / Time No Known Allergies Allergy Verified 07/14/18 08:25 ED Review of Systems ROS: Stated complaint: LEG PAIN Other details as noted in HPI Constitutional: denies: chills, fever Eyes: denies: eye pain, eye discharge, vision change ENT: denies: ear pain, throat pain Respiratory: denies: cough, shortness of breath, wheezing Cardiovascular: denies: chest pain, palpitations Endocrine: no symptoms reported Gastrointestinal: denies: abdominal pain, nausea, diarrhea Genitourinary: denies: urgency, dysuria, discharge Musculoskeletal: denies: back pain, joint swelling, arthralgia Skin: denies: rash, lesions Neurological: denies: headache, weakness, paresthesias Psychiatric: denies: anxiety, depression Hematological/Lymphatic: denies: easy bleeding, easy bruising ED Past Medical Hx - Past Medical History Hx Hypertension: Yes Hx Seizures: Yes Hx Psychiatric Treatment: Yes (Bipolar) - Social History Smoking Status: Former Smoker - Medications Home Medications: Home Medications Medication Instructions Recorded Confirmed Last Taken Type Labetalol [Labetalol 200mg TAB] 200 mg PO BID #60 tablet 06/27/17 07/14/18 Unknown Rx NIFEdipine XL [Procardia Xl] 60 mg PO Q12HR #60 tablet 06/27/17 07/14/18 Unknown Rx Phenytoin (25 mg/ml) [Dilantin] 100 mg PO Q8HR 30 Days oral.liqd 06/27/17 07/14/18 Unknown Rx Pyridoxine [Vitamin B-6 50MG TAB] 200 mg PO QDAY #30 tablet 06/27/17 07/14/18 Unknown Rx Valsartan [Diovan] 160 mg PO BID #60 tablet 06/27/17 07/14/18 Unknown Rx hydroCHLOROthiazide [HCTZ] 25 mg PO DAILY #30 tablet 06/27/17 07/14/18 Unknown Rx HYDROcodone/APAP 5-325 [[place] 1 each PO Q4HR PRN #12 tablet 10/20/17 07/14/18 Unknown Rx 5/325] Docusate Sodium [Colace] 100 mg PO BID PRN #30 capsule 05/09/18 07/14/18 Unknown Rx Chlorhexidine Mouthwash [Peridex] 15 ml MM BID #1 bottle 06/23/18 07/14/18 Unknown Rx levETIRAcetam [Keppra TAB] 1,000 mg PO BID #60 tablet 06/23/18 07/14/18 Unknown Rx ED Physical Exam - General Limitations: No Limitations General appearance: alert, in no apparent distress - Head Head exam: Present: atraumatic, normocephalic - Eye Eye exam: Present: normal appearance - ENT ENT exam: Present: mucous membranes moist - Neck Neck exam: Present: normal inspection - Respiratory Respiratory exam: Present: normal lung sounds bilaterally. Absent: respiratory distress - Cardiovascular Cardiovascular Exam: Present: regular rate, normal rhythm. Absent: systolic murmur, diastolic murmur, rubs, gallop - GI/Abdominal GI/Abdominal exam: Present: soft, normal bowel sounds - Extremities Exam Extremities exam: Present: normal inspection - Back Exam Back exam: Present: normal inspection - Neurological Exam Neurological exam: Present: alert, oriented X3 - Psychiatric Psychiatric exam: Present: normal affect, normal mood - Skin Skin exam: Present: warm, dry, intact, normal color. Absent: rash ED Course Vital Signs 07/14/18 07/14/18 07/14/18 08:26 09:05 09:06 Temperature 98.5 F 98.3 F Pulse Rate 106 H 83 Respiratory 18 18 18 Rate Blood Pressure 198/97 Blood Pressure 156/81 [Left] O2 Sat by Pulse 99 100 100 Oximetry ED Medical Decision Making - Medical Decision Making Chief Medical diagnosis: Seizure disorder Differential medical diagnoses: Social issue, bitten tongue I will give patient Keppra and I'll have patient CKs manager biostatistics for potential placement at different care facility. Critical care attestation.: If time is entered above; I have spent that time in minutes in the direct care of this critically ill patient, excluding procedure time. ED Disposition Clinical Impression: Seizure, History of seizure Disposition: DC-01 TO HOME OR SELFCARE Is pt being admited?: No Does the pt Need Aspirin: No Condition: Stable Instructions: Epilepsy (ED) Referrals: TANYA DOMINGUEZ MD [Primary Care Provider] - 3-5 Days
[2018-07-14] MEDS ORDERED: KEPPRA PO ONE (09:38)
[2018-07-14 12:53] VITALS: BP 157/83
== END 2018-07-14 12:53 | disposition home or self-care (01) ==
LOC: ED 08:22
DX: G40.909 Epilepsy, unspecified, not intractable, without status epilepticus (principal); I10 Essential (primary) hypertension; F31.9 Bipolar disorder, unspecified; Z87.891 Personal history of nicotine dependence

== ENCOUNTER 2018-07-21 21:03 | Emergency (ER) | payer MEDICARE ==
--- NOTE | 2018-07-21 21:23 | Emergency Department Report ---
Blank Doc - Documentation Documentation: 67 y o female presents with throat pain and dryness x couple of days PMH: HTN,Bipolar labs seems out of it, speaking when not spoken to AAOx 3 MAin side eval
[2018-07-21 21:43] LABS: Basophils % (Auto) 0.3 % (0.0-1.8); Eosinophils % (Auto) 0.5 % (0.0-4.3); Hematocrit 38.1 % (30.3-42.9); Hemoglobin 13.4 gm/dl (10.1-14.3); Lymphocytes # (Auto) 3.3 K/mm3 (1.2-5.4); Lymphocytes % (Auto) 48.8 % (13.4-35.0); Mean Corpuscular HGB Conc 35 % (30-34); Mean Corpuscular Volume 91 fl (79-97); Monocytes # (Auto) 0.5 K/mm3 (0.0-0.8); Monocytes % (Auto) 7.2 % (0.0-7.3); Platelet Count 194 K/mm3 (140-440); Red Cell Distribution Width 13.6 % (13.2-15.2)
[2018-07-21 21:54] LABS: BUN/Creatinine Ratio 16; Blood Urea Nitrogen 11 mg/dL (7-17); Calcium 9.7 mg/dL (8.4-10.2); Hemolysis Index 4
[2018-07-21] MEDS ORDERED: TORADOL IM ONE (23:03)
[2018-07-21] MEDS ORDERED: LIDOCAINE VISCOUS 2% PO ONE (23:03)
[2018-07-21] MEDS ORDERED: ALUM-MAG HYDROX-SIMETH 200-200-20MG/5ML PO ONE (23:03)
--- NOTE | 2018-07-21 23:38 | Emergency Department Report ---
ED General Adult HPI - General Chief complaint: Dyspnea/Respdistress Stated complaint: JAMEL Time Seen by Provider: 07/21/18 21:15 Source: patient, EMS Mode of arrival: Wheelchair Limitations: No Limitations - History of Present Illness Initial comments: 67-year-old female with a past medical history of seizures, bipolar disorder, And hypertension presents to the hospital with multiple complaints. This complaint in triage and shortness are 1 day. Patient states he lives in a [facility] and smells trigger her shortness of breath. She complains of having pain across her chest including both breasts and chest wall 1 day. Pain is constant and worse with movement and palpation. Patient complains that her throat or her mouth feels dry. She is compliant with her medication including Keppra for seizures. She states she takes 6 different medications. She also states her daughter is performing gnosticist causing her to have these symptoms. Patient also states she is having trouble sleeping because of bed bugs. Pt states the bed bug bites also hurt her. Also she wants somewhere else to live because she is the only black and there are 5 there and [place]. - Related Data Previous Rx's Medication Instructions Recorded Last Taken Type Labetalol [Labetalol 200mg TAB] 200 mg PO BID #60 tablet 06/27/17 Unknown Rx NIFEdipine XL [Procardia Xl] 60 mg PO Q12HR #60 tablet 06/27/17 Unknown Rx Phenytoin (25 mg/ml) [Dilantin] 100 mg PO Q8HR 30 Days oral.liqd 06/27/17 Unknown Rx Pyridoxine [Vitamin B-6 50MG TAB] 200 mg PO QDAY #30 tablet 06/27/17 Unknown Rx Valsartan [Diovan] 160 mg PO BID #60 tablet 06/27/17 Unknown Rx hydroCHLOROthiazide [HCTZ] 25 mg PO DAILY #30 tablet 06/27/17 Unknown Rx HYDROcodone/APAP 5-325 [[place] 1 each PO Q4HR PRN #12 tablet 10/20/17 Unknown Rx 5/325] Docusate Sodium [Colace] 100 mg PO BID PRN #30 capsule 05/09/18 Unknown Rx Chlorhexidine Mouthwash [Peridex] 15 ml MM BID #1 bottle 06/23/18 Unknown Rx levETIRAcetam [Keppra TAB] 1,000 mg PO BID #60 tablet 06/23/18 Unknown Rx Permethrin 5% [Acticin 5% CREAM] 1 applicatio TP ONCE #1 tube 07/14/18 Unknown Rx Ibuprofen [Motrin] 800 mg PO Q8HR PRN #30 tablet 07/22/18 Unknown Rx hydrOXYzine HCL [Atarax] 25 mg PO Q6HR PRN #30 tablet 07/22/18 Unknown Rx Allergies Allergy/AdvReac Type Severity Reaction Status Date / Time No Known Allergies Allergy Verified 07/14/18 08:25 ED Review of Systems ROS: Stated complaint: JAMEL Other details as noted in HPI ED Past Medical Hx - Past Medical History Previous Medical History?: Yes Hx Hypertension: Yes Hx Seizures: Yes Hx Psychiatric Treatment: Yes (Bipolar) - Surgical History Past Surgical History?: No - Social History Smoking Status: Former Smoker Substance Use Type: None - Medications Home Medications: Home Medications Medication Instructions Recorded Confirmed Last Taken Type Labetalol [Labetalol 200mg TAB] 200 mg PO BID #60 tablet 06/27/17 07/14/18 Unknown Rx NIFEdipine XL [Procardia Xl] 60 mg PO Q12HR #60 tablet 06/27/17 07/14/18 Unknown Rx Phenytoin (25 mg/ml) [Dilantin] 100 mg PO Q8HR 30 Days oral.liqd 06/27/17 07/14/18 Unknown Rx Pyridoxine [Vitamin B-6 50MG TAB] 200 mg PO QDAY #30 tablet 06/27/17 07/14/18 Unknown Rx Valsartan [Diovan] 160 mg PO BID #60 tablet 06/27/17 07/14/18 Unknown Rx hydroCHLOROthiazide [HCTZ] 25 mg PO DAILY #30 tablet 06/27/17 07/14/18 Unknown Rx HYDROcodone/APAP 5-325 [[place] 1 each PO Q4HR PRN #12 tablet 10/20/17 07/14/18 Unknown Rx 5/325] Docusate Sodium [Colace] 100 mg PO BID PRN #30 capsule 05/09/18 07/14/18 Unknown Rx Chlorhexidine Mouthwash [Peridex] 15 ml MM BID #1 bottle 06/23/18 07/14/18 Unknown Rx levETIRAcetam [Keppra TAB] 1,000 mg PO BID #60 tablet 06/23/18 07/14/18 Unknown Rx Permethrin 5% [Acticin 5% CREAM] 1 applicatio TP ONCE #1 tube 07/14/18 Unknown Rx Ibuprofen [Motrin] 800 mg PO Q8HR PRN #30 tablet 07/22/18 Unknown Rx hydrOXYzine HCL [Atarax] 25 mg PO Q6HR PRN #30 tablet 07/22/18 Unknown Rx ED Physical Exam - General Limitations: No Limitations - Other Other exam information: General: No limitations, patient is alert in no acute distress Head exam: Atraumatic, normocephalic Eyes exam: Normal appearance, pupils equal reactive to light, extraocular movements intact ENT: Moist mucous membrane, normal oropharynx Neck exam: Normal inspection, full range of motion, no meningismus nontender Respiratory exam: Clear to auscultation bilateral, no wheezes, rales, crackles. Reproducible anterior chest wall tenderness across whole chest. No gross breast abnormality Cardiovascular: Normal rate and rhythm, normal heart sounds Abdomen: Soft, nondistended, and nontender, with normal bowel sounds, no rebound, or guarding Extremity: Full range of motion normal inspection no deformity Back: Normal Inspection, full range of motion, no tenderness Neurologic: Alert, oriented x3, cranial nerves intact, no motor or sensory deficit Psychiatric: normal affect, normal mood Skin: Multiple bites and excoriations throughout skin ED Course Vital Signs 07/21/18 07/22/18 07/22/18 21:16 00:20 00:22 Temperature 98 F 98.4 F Pulse Rate 92 H 76 Respiratory 18 17 17 Rate Blood Pressure 195/100 Blood Pressure 151/96 [Right] O2 Sat by Pulse 100 98 Oximetry 07/22/18 07/22/18 07/22/18 00:37 02:00 05:54 Temperature 98.6 F Pulse Rate 89 89 Respiratory 17 16 17 Rate Blood Pressure Blood Pressure 149/87 [Right] O2 Sat by Pulse 99 Oximetry 07/22/18 07/22/18 07/22/18 06:00 06:16 06:30 Temperature Pulse Rate 82 86 71 Respiratory 17 13 9 L Rate Blood Pressure 109/49 109/49 131/62 Blood Pressure [Right] O2 Sat by Pulse 100 100 100 Oximetry 07/22/18 07/22/18 07/22/18 06:46 07:00 10:32 Temperature 98.6 F Pulse Rate 69 76 Respiratory 18 18 Rate Blood Pressure 131/62 131/62 Blood Pressure 136/60 [Right] O2 Sat by Pulse 97 95 Oximetry ED Medical Decision Making - Lab Data Result diagrams: 07/21/18 21:27 07/21/18 21:27 Lab Results 07/21/18 07/21/18 07/21/18 Range/Units 21:27 21:27 21:27 WBC 6.8 (4.5-11.0) K/mm3 RBC 4.20 (3.65-5.03) M/mm3 Hgb 13.4 (10.1-14.3) gm/dl Hct 38.1 (30.3-42.9) % MCV 91 (79-97) fl MCH 32 (28-32) pg MCHC 35 H (30-34) % RDW 13.6 (13.2-15.2) % Plt Count 194 (140-440) K/mm3 Lymph % (Auto) 48.8 H (13.4-35.0) % Cloud % (Auto) 7.2 (0.0-7.3) % Eos % (Auto) 0.5 (0.0-4.3) % Baso % (Auto) 0.3 (0.0-1.8) % Lymph # 3.3 (1.2-5.4) K/mm3 Cloud # 0.5 (0.0-0.8) K/mm3 Eos # 0.0 (0.0-0.4) K/mm3 Baso # 0.0 (0.0-0.1) K/mm3 Seg Neutrophils % 43.2 (40.0-70.0) % Seg Neutrophils # 2.9 (1.8-7.7) K/mm3 Sodium 142 (137-145) mmol/L Potassium 3.3 L (3.6-5.0) mmol/L Chloride 103.3 (98-107) mmol/L Carbon Dioxide 21 L (22-30) mmol/L Anion Gap 21 mmol/L BUN 11 (7-17) mg/dL Creatinine 0.7 (0.7-1.2) mg/dL Estimated GFR > 60 ml/min BUN/Creatinine Ratio 16 % Glucose 102 H (65-100) mg/dL Calcium 9.7 (8.4-10.2) mg/dL Troponin T < 0.010 (0.00-0.029) ng/mL NT-Pro-B Natriuret Pep 41.13 (0-900) pg/mL 07/22/18 Range/Units 00:55 WBC (4.5-11.0) K/mm3 RBC (3.65-5.03) M/mm3 Hgb (10.1-14.3) gm/dl Hct (30.3-42.9) % MCV (79-97) fl MCH (28-32) pg MCHC (30-34) % RDW (13.2-15.2) % Plt Count (140-440) K/mm3 Lymph % (Auto) (13.4-35.0) % Cloud % (Auto) (0.0-7.3) % Eos % (Auto) (0.0-4.3) % Baso % (Auto) (0.0-1.8) % Lymph # (1.2-5.4) K/mm3 Cloud # (0.0-0.8) K/mm3 Eos # (0.0-0.4) K/mm3 Baso # (0.0-0.1) K/mm3 Seg Neutrophils % (40.0-70.0) % Seg Neutrophils # (1.8-7.7) K/mm3 Sodium (137-145) mmol/L Potassium (3.6-5.0) mmol/L Chloride (98-107) mmol/L Carbon Dioxide (22-30) mmol/L Anion Gap mmol/L BUN (7-17) mg/dL Creatinine (0.7-1.2) mg/dL Estimated GFR ml/min BUN/Creatinine Ratio % Glucose (65-100) mg/dL Calcium (8.4-10.2) mg/dL Troponin T < 0.010 (0.00-0.029) ng/mL NT-Pro-B Natriuret Pep (0-900) pg/mL - EKG Data -: EKG Interpreted by Me EKG shows normal: sinus rhythm, axis (qrs 43), QRS complexes (qrsd 81) Rate: bradycardia (55) - Radiology Data Radiology results: report reviewed cxr: normal - Medical Decision Making pt has reproducible chest wall pain and normal ekg trop neg x2 cxr neg bp improved in ed without tx pt will need social service technician consult in am for placement since she does not want to return to her current residence pt prepped for d/c home pending case management consult for placement - Differential Diagnosis mi, unstable angina, chest wall pain, thrush, gerd, bed bugs, psychosis Critical Care Time: No Critical care attestation.: If time is entered above; I have spent that time in minutes in the direct care of this critically ill patient, excluding procedure time. ED Disposition Clinical Impression: Bipolar disorder, HTN (hypertension), Chest wall pain, Bed bug bite, Homeless, Hx of seizure disorder, Hypokalemia Disposition: TO HOME OR SELFCARE Is pt being admited?: No Does the pt Need Aspirin: No Condition: Stable Instructions: Costochondritis (ED), Epilepsy (ED) Additional Instructions: Take the medication as prescribed. Follow up with your doctor or the clinic/doctor provided. Return if symptoms worsen as indicated by your discharge instructions Prescriptions: hydrOXYzine HCL [Atarax] 25 mg PO Q6HR PRN #30 tablet PRN Reason: Itching Ibuprofen [Motrin] 800 mg PO Q8HR PRN #30 tablet PRN Reason: Pain , Severe (7-10) Referrals: CASSIE BARRAGAN MD [Primary Care Provider] - 3-5 Days [facility] [Provider Group] - 3-5 Days Time of Disposition: 01:41 (awaiting case managment for placement in am)
--- NOTE | 2018-07-21 23:43 | XRay Report ---
PROCEDURE: XR CHEST ROUTINE 2V TECHNIQUE: PA and lateral chest radiographs were obtained. HISTORY: sob COMPARISONS: None. FINDINGS: Heart: Normal. Mediastinum/Vessels: Normal. Lungs/Pleural space: Normal. Bony thorax: No acute osseous abnormality. IMPRESSION: Normal examination. This document is electronically signed by Makayla Alarcon DO., July 21 2018 11:41:29 PM ET
[2018-07-21] MEDS ORDERED: K-DUR PO ONE (23:47)
[2018-07-22] MEDS ORDERED: ATARAX PO PRN (01:29)
[2018-07-22] MEDS ORDERED: KEPPRA 1,000 MG/NS 0.75% 100ML 1,000 MG/100 ML BAG IV ONE (05:34)
[2018-07-22] MEDS ORDERED: DIOVAN PO SCH (10:00)
[2018-07-22] MEDS ORDERED: KEPPRA PO SCH (10:00)
[2018-07-22] MEDS ORDERED: NORMODYNE PO SCH (10:00)
[2018-07-22] MEDS ORDERED: HCTZ PO SCH (10:00)
[2018-07-22 10:33] VITALS: BP 136/60
== END 2018-07-22 10:32 | disposition home or self-care (01) ==
LOC: ED 21:03
DX: T14.8XXA Other injury of unspecified body region, initial encounter (principal); F31.9 Bipolar disorder, unspecified; I10 Essential (primary) hypertension; R07.89 Other chest pain; G40.909 Epilepsy, unspecified, not intractable, without status epilepticus; E87.6 Hypokalemia; Z87.891 Personal history of nicotine dependence; Z79.899 Other long term (current) drug therapy; W57.XXXA Bitten or stung by nonvenomous insect and other nonvenomous arthropods, initial encounter; Y93.89 Activity, other specified; Y92.89 Other specified places as the place of occurrence of the external cause; Y99.8 Other external cause status
CPT/HCPCS: 36415; 71046; 80048; 83880; 84484; 85025; 93005; 93010; 96372; 96374; 99284; J1885; J1953

== ENCOUNTER 2018-09-12 16:30 | Emergency (ER) | payer MEDICAID, MEDICARE ==
--- NOTE | 2018-09-12 16:50 | Emergency Department Report ---
ED Seizure HPI - General Chief Complaint: Seizure Stated Complaint: SEIZURE Time Seen by Provider: 09/12/18 16:46 Source: patient, EMS Mode of arrival: Stretcher Limitations: No Limitations - History of Present Illness Initial Comments: Patient is a 67-year-old female that presents emergent with complaints of seizure 1. Patient was brought in by EMS. Patient states she was in a park and she had a seizure. Patient states she was seen here yesterday for the same problem. Patient states she's taking her medications. Patient states she took 2 Of this morning. Patient states the seizure was witnessed by her friend. Patient states her friend told her she did not hit her head and the seizure was for a brief second. Patient states she had some postictal confusion per her friend. Patient denies trauma. Patient denies headache. Patient denies blurred vision. Patient states she is compliant with her medications. MD Complaint: seizure -: Sudden Description of Episode: loss of consciousness, tonic-clonic movement, post-event confusion Witnessed:: Yes Trauma: No Seizure History: known seizure disorder, compliant with medication Place: street/outdoors Possible Precipitating Event: none Associated Symptoms: malaise, tongue injury. denies: chest pain, confusion, cough, diaphoresis, fever/chills, loss of appetite, rash, shortness of breath, syncope, weakness, shoulder dislocation Treatments Prior to Arrival: none - Related Data Previous Rx's Medication Instructions Recorded Last Taken Type hydroCHLOROthiazide [HCTZ] 25 mg PO DAILY #30 tablet 06/27/17 09/12/18 Rx Docusate Sodium [Colace] 100 mg PO BID PRN #30 capsule 05/09/18 09/12/18 Rx levETIRAcetam [Keppra TAB] 1,000 mg PO BID #60 tablet 06/23/18 09/12/18 Rx amLODIPine [Norvasc] 5 mg PO ONCE 15 Days #15 tablet 09/12/18 Unknown Rx Allergies Allergy/AdvReac Type Severity Reaction Status Date / Time No Known Allergies Allergy Verified 07/14/18 08:25 ED Review of Systems ROS: Stated complaint: SEIZURE Other details as noted in HPI Constitutional: malaise. denies: chills, fever Eyes: denies: eye pain, eye discharge, vision change ENT: denies: ear pain, throat pain Respiratory: denies: cough, shortness of breath, wheezing Cardiovascular: denies: chest pain, palpitations Endocrine: no symptoms reported Gastrointestinal: denies: abdominal pain, nausea, diarrhea Genitourinary: denies: urgency, dysuria, discharge Musculoskeletal: denies: back pain, joint swelling, arthralgia Skin: denies: rash, lesions Neurological: denies: headache, weakness, paresthesias Psychiatric: denies: anxiety, depression Hematological/Lymphatic: denies: easy bleeding, easy bruising ED Past Medical Hx - Past Medical History Previous Medical History?: Yes Hx Hypertension: Yes Hx Seizures: Yes Hx Psychiatric Treatment: Yes (Bipolar) - Surgical History Past Surgical History?: No - Family History Family history: no significant - Social History Smoking Status: Former Smoker (none 3 months) Substance Use Type: None (denies illicit drug use) - Medications Home Medications: Home Medications Medication Instructions Recorded Confirmed Last Taken Type hydroCHLOROthiazide [HCTZ] 25 mg PO DAILY #30 tablet 06/27/17 09/12/18 09/12/18 Rx Docusate Sodium [Colace] 100 mg PO BID PRN #30 capsule 05/09/18 09/12/18 09/12/18 Rx levETIRAcetam [Keppra TAB] 1,000 mg PO BID #60 tablet 06/23/18 09/12/18 09/12/18 Rx amLODIPine [Norvasc] 5 mg PO ONCE 15 Days #15 tablet 09/12/18 Unknown Rx ED Physical Exam - General Limitations: No Limitations General appearance: alert, in no apparent distress - Head Head exam: Present: atraumatic, normocephalic - Eye Eye exam: Present: normal appearance, PERRL, EOMI Pupils: Present: normal accommodation - ENT ENT exam: Present: mucous membranes moist, other (right-sided tongue abrasion) - Neck Neck exam: Present: normal inspection - Respiratory Respiratory exam: Present: normal lung sounds bilaterally. Absent: respiratory distress - Cardiovascular Cardiovascular Exam: Present: regular rate, normal rhythm. Absent: systolic murmur, diastolic murmur, rubs, gallop - GI/Abdominal GI/Abdominal exam: Present: soft, normal bowel sounds. Absent: distended, tenderness, guarding - Rectal Rectal exam: Present: deferred - Extremities Exam Extremities exam: Present: normal inspection - Back Exam Back exam: Present: normal inspection - Neurological Exam Neurological exam: Present: alert, oriented X3 - Psychiatric Psychiatric exam: Present: normal affect, normal mood - Skin Skin exam: Present: warm, dry, intact, normal color. Absent: rash ED Course Vital Signs 09/12/18 09/12/18 09/12/18 16:44 16:45 16:50 Temperature Pulse Rate 77 74 71 Respiratory 11 L 13 17 Rate Blood Pressure 186/88 Blood Pressure [Right] O2 Sat by Pulse 97 95 94 Oximetry 09/12/18 09/12/18 09/12/18 16:52 17:04 17:30 Temperature 98.5 F Pulse Rate 76 79 Respiratory 12 15 Rate Blood Pressure 186/88 207/85 Blood Pressure [Right] O2 Sat by Pulse 97 Oximetry 09/12/18 09/12/18 09/12/18 18:00 18:30 20:04 Temperature Pulse Rate 75 76 78 Respiratory 18 15 15 Rate Blood Pressure 186/88 186/88 218/91 Blood Pressure 218/91 [Right] O2 Sat by Pulse 97 96 97 Oximetry 09/12/18 09/12/18 09/12/18 20:33 21:11 21:17 Temperature Pulse Rate 76 66 66 Respiratory 14 Rate Blood Pressure 201/101 Blood Pressure 203/76 201/101 [Right] O2 Sat by Pulse 97 Oximetry 09/12/18 21:35 Temperature Pulse Rate Respiratory Rate Blood Pressure Blood Pressure 182/72 [Right] O2 Sat by Pulse Oximetry - Reevaluation(s) Reevaluation #1: I discussed all results with patient. I discussed plan of care with patient. Patient is stable for discharge. Patient will be discharged home. Patient given discharge instructions. Patient voiced understanding of discharge instructions. Patient discharged will be held until her blood pressure to a more acceptable range. Patient agrees with plan of care. 09/12/18 21:02 ED Medical Decision Making - Lab Data Result diagrams: 09/12/18 17:31 09/12/18 17:31 - Medical Decision Making Patient is a 67-year-old female that presents emergency with complaints of seizure activity. Patient has a history of seizures comply with medications. Patient given Keppra in the ER. Patient was seen yesterday for the same problem. Patient found to have elevated blood pressure and given Norvasc and clonidine in the ER. Patient's blood pressure responded well. Patient patient did not have any seizure activity in the ER. Patient's labs unremarkable. Patient given discharge instructions. Patient stable for discharge. Patient's discharge was delayed in order to get her blood pressure to a more acceptable range. Patient given prescription for Norvasc. - Differential Diagnosis seizure. Hypertension. Critical care attestation.: If time is entered above; I have spent that time in minutes in the direct care of this critically ill patient, excluding procedure time. ED Disposition Clinical Impression: Seizure, Elevated blood pressure reading HTN (hypertension) Qualifiers: Hypertension type: unspecified Qualified Code(s): I10 - Essential (primary) hy pertension Abrasion of tongue Qualifiers: Encounter type: initial encounter Qualified Code(s): S00.512A - Abrasion of oral cavity, initial encounter Disposition: TO HOME OR SELFCARE Is pt being admited?: No Does the pt Need Aspirin: No Condition: Stable Instructions: Heart Healthy Diet (ED), Epilepsy (ED), DASH Eating Plan (ED), Low Sodium Diet (ED), Hypertension (ED), Recurrent Seizures Adult (ED) Additional Instructions: Patient to follow-up with primary care in 2-3 days. Patient to follow up with neurologist in 2-3 days. Patient to return to ER if condition worsens. Patient to avoid driving. Patient to rest. Patient states meds as directed. Patient to start new blood pressure medication. Patient to keep a blood pressure log and take to her primary care office visit. Patient eat a low-salt diet. Patient had a heart healthy diet. Prescriptions: amLODIPine [Norvasc] 5 mg PO ONCE 15 Days #15 tablet Referrals: [facility] MD SANG [Primary Care Provider] - 2-3 Days MARTA CLIFFORD MD [Staff Physician] - 2-3 Days GAUTAM KIM MD [Staff Physician] - 2-3 Days Time of Disposition: 21:45
[2018-09-12] MEDS ORDERED: KEPPRA 1,000 MG/NS 0.75% 100ML 1,000 MG/100 ML BAG IV ONE (16:51)
[2018-09-12 17:47] LABS: Hematocrit 35.6 % (30.3-42.9); Hemoglobin 12.1 gm/dl (10.1-14.3); Mean Corpuscular HGB Conc 34 % (30-34); Mean Corpuscular Volume 92 fl (79-97); Platelet Count 168 K/mm3 (140-440); Red Blood Count 3.87 M/mm3 (3.65-5.03); Red Cell Distribution Width 14.1 % (13.2-15.2)
[2018-09-12 17:53] LABS: Bacteria,Urine 1+ /HPF (Negative); Bilirubin,Urine NEG (Negative); Blood,Urine NEG (Negative); Color,Urine Yellow (Yellow); Mucus,Urine 3+ /HPF; Urobilinogen,Urine < 2.0 mg/dL (<2.0)
[2018-09-12 18:33] LABS: Alanine Aminotransferase 36 units/L (7-56); Albumin 3.8 g/dL (3.9-5); BUN/Creatinine Ratio 21; Blood Urea Nitrogen 15 mg/dL (7-17); Calcium 8.9 mg/dL (8.4-10.2); Hemolysis Index 10
[2018-09-12] MEDS ORDERED: NORVASC PO ONE (19:15)
[2018-09-12] MEDS ORDERED: CATAPRES PO ONE (21:13)
[2018-09-12] MEDS ORDERED: CATAPRES ONE (21:16)
[2018-09-12 21:36] VITALS: BP 182/72
== END 2018-09-12 22:10 | disposition home or self-care (01) ==
LOC: ED 16:30
DX: S00.512A Abrasion of oral cavity, initial encounter (principal); G40.909 Epilepsy, unspecified, not intractable, without status epilepticus; I10 Essential (primary) hypertension; F31.9 Bipolar disorder, unspecified; Z87.891 Personal history of nicotine dependence; Z79.899 Other long term (current) drug therapy; X58.XXXA Exposure to other specified factors, initial encounter; Y93.89 Activity, other specified; Y92.488 Other paved roadways as the place of occurrence of the external cause; Y99.8 Other external cause status
CPT/HCPCS: 36415; 80053; 80177; 81001; 85027; 96374; 99284; J1953

== ENCOUNTER 2018-09-13 04:50 | Emergency (ER) | payer MEDICARE ==
[2018-09-13] MEDS ORDERED: KEPPRA 1,000 MG/NS 0.75% 100ML 1,000 MG/100 ML BAG IV ONE (06:25)
[2018-09-13] MEDS ORDERED: TORADOL IV ONE (06:32)
[2018-09-13] MEDS ORDERED: LIDOCAINE VISCOUS 2% PO ONE (06:32)
[2018-09-13] MEDS ORDERED: CATAPRES PO ONE (06:35)
--- NOTE | 2018-09-13 06:40 | Emergency Department Report ---
HPI - General Chief Complaint: Seizure Time Seen by Provider: 09/13/18 06:25 - HPI HPI: Room 22 The patient is a 67-year-old female presented with a chief complaint seizure. The patient is currently at a long term and a roommate witnessed the patient have any generalized tonoclonic seizure. The patient subsequent sent to the ED for evaluation. Patient states she has been compliant with her Keppra now complains of soreness in her mouth(where she bit her tongue), left lateral neck and bilateral lower extremities. Location: [See above] Duration: [See above] Quality: [See above] Severity: [See above] Modifying factors: [see above] Context: [see above] Mode of transportation: [not driving] ED Past Medical Hx - Past Medical History Hx Hypertension: Yes Hx Seizures: Yes Hx Psychiatric Treatment: Yes (Bipolar) - Surgical History Past Surgical History?: No - Family History Family history: no significant - Social History Smoking Status: Never Smoker Substance Use Type: None - Medications Home Medications: Home Medications Medication Instructions Recorded Confirmed Last Taken Type hydroCHLOROthiazide [HCTZ] 25 mg PO DAILY #30 tablet 06/27/17 09/12/18 09/12/18 Rx Docusate Sodium [Colace] 100 mg PO BID PRN #30 capsule 05/09/18 09/12/18 09/12/18 Rx amLODIPine [Norvasc] 5 mg PO ONCE 15 Days #90 tablet 09/13/18 Unknown Rx levETIRAcetam [Keppra TAB] 1,000 mg PO BID #60 tablet 09/13/18 Unknown Rx ED Review of Systems ROS: Stated complaint: SEIZURE Other details as noted in HPI Constitutional: no symptoms reported Eyes: denies: eye pain ENT: other (tongue abrasion) Respiratory: no symptoms reported Cardiovascular: denies: chest pain Endocrine: no symptoms reported Gastrointestinal: denies: abdominal pain Genitourinary: denies: dysuria Musculoskeletal: myalgia Neurological: denies: headache Physical Exam - Physical Exam Vital Signs: Vital Signs 09/13/18 09/13/18 09/13/18 04:54 04:55 04:57 Temperature 98.2 F Pulse Rate 79 71 67 Respiratory 14 17 14 Rate Blood Pressure O2 Sat by Pulse 96 94 96 Oximetry 09/13/18 09/13/18 09/13/18 04:59 05:01 05:03 Temperature Pulse Rate 66 67 71 Respiratory 15 22 11 L Rate Blood Pressure O2 Sat by Pulse 94 97 97 Oximetry 09/13/18 09/13/18 09/13/18 05:05 05:07 05:09 Temperature Pulse Rate 65 70 64 Respiratory 13 13 16 Rate Blood Pressure O2 Sat by Pulse 97 95 95 Oximetry 09/13/18 09/13/18 09/13/18 05:11 05:13 05:15 Temperature Pulse Rate 63 65 65 Respiratory 17 14 13 Rate Blood Pressure O2 Sat by Pulse 95 95 96 Oximetry 09/13/18 09/13/18 09/13/18 05:17 05:19 05:21 Temperature Pulse Rate 62 58 L 61 Respiratory 14 13 13 Rate Blood Pressure O2 Sat by Pulse 96 96 95 Oximetry 09/13/18 09/13/18 09/13/18 05:23 05:25 05:27 Temperature Pulse Rate 64 68 62 Respiratory 12 12 15 Rate Blood Pressure O2 Sat by Pulse 96 95 96 Oximetry 09/13/18 09/13/18 09/13/18 05:29 05:31 05:33 Temperature Pulse Rate 60 63 61 Respiratory 14 16 14 Rate Blood Pressure O2 Sat by Pulse 95 94 97 Oximetry 09/13/18 09/13/18 09/13/18 05:35 05:37 05:39 Temperature Pulse Rate 61 57 L 58 L Respiratory 14 12 14 Rate Blood Pressure O2 Sat by Pulse 96 95 97 Oximetry 09/13/18 05:41 Temperature Pulse Rate 57 L Respiratory 11 L Rate Blood Pressure 191/85 O2 Sat by Pulse 97 Oximetry Vital Signs 09/13/18 09/13/18 09/13/18 04:54 04:55 04:57 Temperature 98.2 F Pulse Rate 79 71 67 Respiratory 14 17 14 Rate Blood Pressure O2 Sat by Pulse 96 94 96 Oximetry 09/13/18 09/13/18 09/13/18 04:59 05:01 05:03 Temperature Pulse Rate 66 67 71 Respiratory 15 22 11 L Rate Blood Pressure O2 Sat by Pulse 94 97 97 Oximetry 09/13/18 09/13/18 09/13/18 05:05 05:07 05:09 Temperature Pulse Rate 65 70 64 Respiratory 13 13 16 Rate Blood Pressure O2 Sat by Pulse 97 95 95 Oximetry 09/13/18 09/13/18 09/13/18 05:11 05:13 05:15 Temperature Pulse Rate 63 65 65 Respiratory 17 14 13 Rate Blood Pressure O2 Sat by Pulse 95 95 96 Oximetry 09/13/18 09/13/18 09/13/18 05:17 05:19 05:21 Temperature Pulse Rate 62 58 L 61 Respiratory 14 13 13 Rate Blood Pressure O2 Sat by Pulse 96 96 95 Oximetry 09/13/18 09/13/18 09/13/18 05:23 05:25 05:27 Temperature Pulse Rate 64 68 62 Respiratory 12 12 15 Rate Blood Pressure O2 Sat by Pulse 96 95 96 Oximetry 09/13/18 09/13/18 09/13/18 05:29 05:31 05:33 Temperature Pulse Rate 60 63 61 Respiratory 14 16 14 Rate Blood Pressure O2 Sat by Pulse 95 94 97 Oximetry 09/13/18 09/13/18 09/13/18 05:35 05:37 05:39 Temperature Pulse Rate 61 57 L 58 L Respiratory 14 12 14 Rate Blood Pressure O2 Sat by Pulse 96 95 97 Oximetry 09/13/18 09/13/18 09/13/18 05:41 06:01 06:31 Temperature Pulse Rate 57 L 56 L 75 Respiratory 11 L 13 15 Rate Blood Pressure 191/85 183/86 191/85 O2 Sat by Pulse 97 99 100 Oximetry 09/13/18 09/13/18 09/13/18 06:45 07:01 07:15 Temperature Pulse Rate 65 65 61 Respiratory 17 19 15 Rate Blood Pressure 192/87 178/81 178/81 O2 Sat by Pulse 100 98 97 Oximetry 09/13/18 07:31 Temperature Pulse Rate 65 Respiratory 13 Rate Blood Pressure 159/71 O2 Sat by Pulse 93 Oximetry Physical Exam: GENERAL: The patient is well-developed well-nourished female lying on stretcher not appearing to be in acute distress. [] HEENT: Normocephalic. Atraumatic. Extraocular motions are intact. Abrasions to lateral margins of the tongue right greater than left NECK: Supple. Trachea midline. Left neck soreness CHEST/LUNGS: Clear to auscultation. There is no respiratory distress noted. HEART/CARDIOVASCULAR: Regular. There is no tachycardia. There is no gallop rub or murmur. ABDOMEN: Abdomen is soft, nontender. Patient has normal bowel sounds. There is no abdominal distention. SKIN: There is no rash. There is no edema. There is no diaphoresis. NEURO: The patient is awake, alert, and oriented. The patient is cooperative. The patient has no focal neurologic deficits. The patient has normal speech. Cranial nerves II-12 grossly intact, no drift MUSCULOSKELETAL: There is no evidence of acute injury. ED Course Vital Signs 09/13/18 09/13/18 09/13/18 04:54 04:55 04:57 Temperature 98.2 F Pulse Rate 79 71 67 Respiratory 14 17 14 Rate Blood Pressure O2 Sat by Pulse 96 94 96 Oximetry 09/13/18 09/13/18 09/13/18 04:59 05:01 05:03 Temperature Pulse Rate 66 67 71 Respiratory 15 22 11 L Rate Blood Pressure O2 Sat by Pulse 94 97 97 Oximetry 09/13/18 09/13/18 09/13/18 05:05 05:07 05:09 Temperature Pulse Rate 65 70 64 Respiratory 13 13 16 Rate Blood Pressure O2 Sat by Pulse 97 95 95 Oximetry 09/13/18 09/13/18 09/13/18 05:11 05:13 05:15 Temperature Pulse Rate 63 65 65 Respiratory 17 14 13 Rate Blood Pressure O2 Sat by Pulse 95 95 96 Oximetry 09/13/18 09/13/18 09/13/18 05:17 05:19 05:21 Temperature Pulse Rate 62 58 L 61 Respiratory 14 13 13 Rate Blood Pressure O2 Sat by Pulse 96 96 95 Oximetry 09/13/18 09/13/18 09/13/18 05:23 05:25 05:27 Temperature Pulse Rate 64 68 62 Respiratory 12 12 15 Rate Blood Pressure O2 Sat by Pulse 96 95 96 Oximetry 09/13/18 09/13/18 09/13/18 05:29 05:31 05:33 Temperature Pulse Rate 60 63 61 Respiratory 14 16 14 Rate Blood Pressure O2 Sat by Pulse 95 94 97 Oximetry 09/13/18 09/13/18 09/13/18 05:35 05:37 05:39 Temperature Pulse Rate 61 57 L 58 L Respiratory 14 12 14 Rate Blood Pressure O2 Sat by Pulse 96 95 97 Oximetry 09/13/18 05:41 Temperature Pulse Rate 57 L Respiratory 11 L Rate Blood Pressure 191/85 O2 Sat by Pulse 97 Oximetry ED Medical Decision Making - Lab Data Result diagrams: 09/13/18 06:45 Laboratory Tests 09/13/18 06:45 Sodium 143 Potassium 4.3 Chloride 105.0 Carbon Dioxide 28 Anion Gap 14 BUN 9 Creatinine 0.6 L Estimated GFR > 60 BUN/Creatinine Ratio 15 Glucose 87 Calcium 9.2 Magnesium 2.10 - Differential Diagnosis seizure Critical care attestation.: If time is entered above; I have spent that time in minutes in the direct care of this critically ill patient, excluding procedure time. ED Disposition Clinical Impression: Seizure, Hypertension Disposition: DC- TO HOME OR SELFCARE Is pt being admited?: No Does the pt Need Aspirin: No Condition: Stable Instructions: Hypertension (ED) Additional Instructions: Return to the emergency department immediately should you develop worsening symptoms, fever, inability to tolerate food or liquid or any other concerns. Prescriptions: levETIRAcetam [Keppra TAB] 1,000 mg PO BID #60 tablet amLODIPine [Norvasc] 5 mg PO ONCE 15 Days #90 tablet Referrals: CASSIE BARRAGAN MD [Primary Care Provider] - 3-5 Days Time of Disposition: 07:54
[2018-09-13 07:18] LABS: BUN/Creatinine Ratio 15; Blood Urea Nitrogen 9 mg/dL (7-17); Calcium 9.2 mg/dL (8.4-10.2); Hemolysis Index 31
[2018-09-13 08:45] VITALS: BP 143/68
== END 2018-09-13 08:45 | disposition home or self-care (01) ==
LOC: ED 04:50
DX: S00.512A Abrasion of oral cavity, initial encounter (principal); R56.9 Unspecified convulsions; I10 Essential (primary) hypertension; F31.9 Bipolar disorder, unspecified; M54.2 Cervicalgia; M79.605 Pain in left leg; M79.604 Pain in right leg; Z79.899 Other long term (current) drug therapy; X58.XXXA Exposure to other specified factors, initial encounter; Y93.89 Activity, other specified; Y92.89 Other specified places as the place of occurrence of the external cause; Y99.8 Other external cause status
CPT/HCPCS: 36415; 80048; 83735; 96374; 96375; 99284; J1885; J1953

== ENCOUNTER 2018-09-13 18:48 | Inpatient (IN) | payer MEDICARE ==
[2018-09-13] MEDS ORDERED: KEPPRA 1,000 MG/NS 0.75% 100ML 1,000 MG/100 ML BAG IV ONE (19:01)
--- NOTE | 2018-09-13 19:05 | Emergency Department Report ---
<CASIE MONTES - Last Filed: 09/13/18 21:46> ED Seizure HPI - General Chief Complaint: Anxiety Stated Complaint: SEIZURE Time Seen by Provider: 09/13/18 18:51 Source: patient Mode of arrival: Ambulatory Limitations: No Limitations - History of Present Illness Initial Comments: Patient is 67 years old female with history of hypertension and seizure. The patient stated that she is taking Keppra 1 g twice a day. Patient presented to the emergency room via EMS from a grocery store after patient had stool episode of seizure. EMS stated that patient was post ictal when I arrived. Patient now is alert, oriented 3 in no acute distress. Patient stated that she is not sure if she took her Keppra doses yesterday and this morning. She denied any headache or head injury. Patient also denied any weakness numbness or tingling sensation. No chest pain or shortness of breath. MD Complaint: seizure -: This afternoon Description of Episode: loss of consciousness, tonic-clonic movement, post-event confusion Witnessed:: Yes Trauma: No Seizure History: known seizure disorder Place: street/outdoors Possible Precipitating Event: none Associated Symptoms: denies other symptoms Treatments Prior to Arrival: none - Related Data Previous Rx's Medication Instructions Recorded Last Taken Type hydroCHLOROthiazide [HCTZ] 25 mg PO DAILY #30 tablet 06/27/17 09/12/18 Rx Docusate Sodium [Colace] 100 mg PO BID PRN #30 capsule 05/09/18 09/12/18 Rx amLODIPine [Norvasc] 5 mg PO ONCE 15 Days #90 tablet 09/13/18 Unknown Rx levETIRAcetam [Keppra TAB] 1,000 mg PO BID #60 tab 09/13/18 Unknown Rx levETIRAcetam [Keppra TAB] 1,000 mg PO BID #60 tablet 09/13/18 Unknown Rx Allergies Allergy/AdvReac Type Severity Reaction Status Date / Time No Known Allergies Allergy Verified 07/14/18 08:25 ED Review of Systems Comment: All other systems reviewed and negative Constitutional: denies: chills, fever Respiratory: denies: cough Cardiovascular: denies: chest pain, palpitations Gastrointestinal: denies: abdominal pain, nausea, vomiting Musculoskeletal: denies: back pain Neurological: denies: headache, weakness, numbness, paresthesias, confusion, abnormal gait ED Past Medical Hx - Past Medical History Hx Hypertension: Yes Hx Seizures: Yes Hx Psychiatric Treatment: Yes (Bipolar) - Surgical History Additional Surgical History: x 2 - Social History Smoking Status: Never Smoker Substance Use Type: None - Medications Home Medications: Home Medications Medication Instructions Recorded Confirmed Last Taken Type hydroCHLOROthiazide [HCTZ] 25 mg PO DAILY #30 tablet 06/27/17 09/12/18 09/12/18 Rx Docusate Sodium [Colace] 100 mg PO BID PRN #30 capsule 05/09/18 09/12/18 09/12/18 Rx amLODIPine [Norvasc] 5 mg PO ONCE 15 Days #90 tablet 09/13/18 Unknown Rx levETIRAcetam [Keppra TAB] 1,000 mg PO BID #60 tab 09/13/18 Unknown Rx levETIRAcetam [Keppra TAB] 1,000 mg PO BID #60 tablet 09/13/18 Unknown Rx ED Physical Exam - General Limitations: No Limitations General appearance: alert, in no apparent distress - Head Head exam: Present: atraumatic, normocephalic, normal inspection - Eye Eye exam: Present: normal appearance, PERRL - ENT ENT exam: Present: normal exam, normal orophraynx, mucous membranes moist - Neck Neck exam: Present: normal inspection, full ROM. Absent: tenderness, meningismus, lymphadenopathy, thyromegaly - Respiratory Respiratory exam: Present: normal lung sounds bilaterally. Absent: respiratory distress, wheezes, rales, rhonchi, chest wall tenderness - Cardiovascular Cardiovascular Exam: Present: regular rate, normal rhythm, normal heart sounds - GI/Abdominal GI/Abdominal exam: Present: soft, normal bowel sounds. Absent: distended, tenderness, guarding, rebound, rigid, organomegaly, mass, bruit, pulsatile mass, hernia - Extremities Exam Extremities exam: Present: normal inspection, full ROM, normal capillary refill. Absent: tenderness, pedal edema, calf tenderness - Back Exam Back exam: Present: normal inspection, full ROM. Absent: CVA tenderness (R), CVA tenderness (L), muscle spasm, paraspinal tenderness, vertebral tenderness - Neurological Exam Neurological exam: Present: alert, oriented X3, CN II-XII intact, normal gait, reflexes normal - Psychiatric Psychiatric exam: Present: normal mood - Skin Skin exam: Present: warm, intact, normal color ED Medical Decision Making - Lab Data Result diagrams: 09/13/18 19:08 09/13/18 19:08 - Medical Decision Making Patient is 67 years old female with history of hypertension and seizure. The patient stated that she is taking Keppra 1 g twice a day. Patient presented to the emergency room via EMS from a grocery store after patient had stool episode of seizure. EMS stated that patient was post ictal when I arrived. Patient now is alert, oriented 3 in no acute distress. Patient stated that she is not sure if she took her Keppra doses yesterday and this morning. She denied any headache or head injury. Patient also denied any weakness numbness or tingling sensation. No chest pain or shortness of breath. Patient labs reviewed and is unremarkable. Patient received 1 g of Keppra IV. No seizure activity observed in the ER. Patient counseled about its compliance with medication. Patient also advised to follow-up with our neurologist in the next 2-3 days and to return to the ER if symptoms are not improved. ED Disposition Clinical Impression: Abrasion of tongue, Hypertensive urgency, Seizure Disposition: DC-01 TO HOME OR SELFCARE Is pt being admited?: No Condition: Stable Instructions: Recurrent Seizures Adult (ED), Hypertension (ED) Prescriptions: levETIRAcetam [Keppra TAB] 1,000 mg PO BID #60 tab Referrals: PRIMARY CARE, [Referring] - 3-5 Days <JENAE NIELSEN - Last Filed: 09/14/18 16:58> ED Review of Systems ROS: Stated complaint: SEIZURE Other details as noted in HPI ED Course Vital Signs 09/13/18 09/13/18 09/13/18 19:10 19:16 19:28 Temperature 98.8 F 98 F Pulse Rate 72 80 Respiratory 16 16 Rate Blood Pressure Blood Pressure 166/80 166/87 [Left] O2 Sat by Pulse 95 96 Oximetry 09/13/18 09/13/18 09/14/18 22:07 23:01 01:01 Temperature Pulse Rate 73 66 56 L Respiratory 15 18 15 Rate Blood Pressure 164/80 135/83 162/80 Blood Pressure [Left] O2 Sat by Pulse 97 88 95 Oximetry 09/14/18 09/14/18 09/14/18 02:57 03:00 03:07 Temperature 98 F Pulse Rate 74 75 71 Respiratory 16 16 Rate Blood Pressure 205/101 205/101 Blood Pressure 194/96 [Left] O2 Sat by Pulse 97 87 Oximetry 09/14/18 09/14/18 09/14/18 04:01 05:00 05:13 Temperature Pulse Rate 55 L 62 62 Respiratory 15 19 Rate Blood Pressure 175/124 205/85 205/85 Blood Pressure [Left] O2 Sat by Pulse 90 95 Oximetry 09/14/18 09/14/18 09/14/18 06:13 06:40 07:00 Temperature 98 F Pulse Rate 89 81 82 Respiratory 19 20 Rate Blood Pressure 200/117 193/90 Blood Pressure 157/76 [Left] O2 Sat by Pulse 93 96 95 Oximetry 09/14/18 09/14/18 09/14/18 07:57 08:01 09:01 Temperature Pulse Rate 84 72 Respiratory 19 25 H Rate Blood Pressure 173/75 173/75 Blood Pressure 162/87 [Left] O2 Sat by Pulse Oximetry 09/14/18 09/14/18 09/14/18 11:02 11:45 12:01 Temperature 98.7 F Pulse Rate 85 Respiratory 18 Rate Blood Pressure 173/75 193/110 Blood Pressure 193/110 [Left] O2 Sat by Pulse 94 99 97 Oximetry 09/14/18 09/14/18 09/14/18 12:52 13:01 14:01 Temperature Pulse Rate 85 Respiratory Rate Blood Pressure 205/93 176/80 165/89 Blood Pressure [Left] O2 Sat by Pulse 99 100 Oximetry 09/14/18 09/14/18 15:00 16:01 Temperature Pulse Rate 67 Respiratory 18 Rate Blood Pressure 160/76 177/95 Blood Pressure 160/76 [Left] O2 Sat by Pulse 99 88 Oximetry ED Medical Decision Making - Lab Data Result diagrams: 09/13/18 19:08 09/13/18 19:08 - Medical Decision Making Patient has another seizure today because she had not received any Keppra since yesterday. Patient was given another loading dose of Her. Patient also had hypertension treated. At this time at 1700 hrs. the patient is alert and states she would like to go home. Patient was seen by our social workers and she states that she is fine going back to the location that she came from. Patient is no longer stating that she has any fear of going back where she was. Patient be discharged this time. Critical care attestation.: If time is entered above; I have spent that time in minutes in the direct care of this critically ill patient, excluding procedure time. ED Disposition Is pt being admited?: No Does the pt Need Aspirin: No Time of Disposition: 16:58
[2018-09-13 19:24] LABS: Basophils # (Auto) 0.1 K/mm3 (0.0-0.1); Basophils % (Auto) 1.1 % (0.0-1.8); Eosinophils # (Auto) 0.1 K/mm3 (0.0-0.4); Eosinophils % (Auto) 1.1 % (0.0-4.3); Hematocrit 32.7 % (30.3-42.9); Hemoglobin 11.1 gm/dl (10.1-14.3); Lymphocytes # (Auto) 1.5 K/mm3 (1.2-5.4); Mean Corpuscular HGB Conc 34 % (30-34); Mean Corpuscular Volume 91 fl (79-97); Monocytes # (Auto) 0.5 K/mm3 (0.0-0.8); Platelet Count 181 K/mm3 (140-440); Red Blood Count 3.58 M/mm3 (3.65-5.03); Red Cell Distribution Width 13.9 % (13.2-15.2)
[2018-09-13 19:47] LABS: Alanine Aminotransferase 34 units/L (7-56); Albumin 3.6 g/dL (3.9-5); BUN/Creatinine Ratio 16; Blood Urea Nitrogen 11 mg/dL (7-17); Calcium 8.7 mg/dL (8.4-10.2); Hemolysis Index 3
[2018-09-13 19:56] LABS: Bilirubin,Direct < 0.2 mg/dL (0-0.2)
[2018-09-13 20:27] LABS: Bacteria,Urine 1+ /HPF (Negative); Bilirubin,Urine NEG (Negative); Blood,Urine NEG (Negative); Color,Urine Yellow (Yellow); Hyaline Casts,Urine 9 /LPF; Mucus,Urine 1+ /HPF
[2018-09-14] MEDS ORDERED: NORMODYNE IV ONE ×2 (02:57→12:17)
[2018-09-14] MEDS ORDERED: APRESOLINE IV ONE ×2 (05:10→18:11)
[2018-09-14] MEDS ORDERED: ATIVAN ONE ×3 (12:13→21:27)
[2018-09-14] MEDS ORDERED: ATIVAN IV ONE ×2 (12:14→17:13)
[2018-09-14] MEDS ORDERED: KEPPRA 1,000 MG/NS 0.75% 100ML 1,000 MG/100 ML BAG IV ONE (12:17)
--- NOTE | 2018-09-14 17:44 | Emergency Department Report ---
Blank Doc - Documentation Documentation: Patient is a 67-year-old female that presents emergency room with a seizure. Patient has had multiple ER visits for uncontrolled seizure. Patient has had 3 seizures in the last 24 hours while being compliant with her medications. Patient already discharged from the ER however prior to getting her discharge paperwork, patient had another seizure. Patient is currently postictal. The nurse asked me to assess the patient. I believe patient would benefit from admission due to uncontrolled seizures. I discussed the case with Dr. Zhou. Dr. Zhou will admit the patient. Assessment and plan: #1 uncontrolled seizures. Patient to be admitted to the hospitalist service.
[2018-09-14] MEDS ORDERED: DILAUDID IV PRN (19:23)
[2018-09-14] MEDS ORDERED: ZOFRAN IV PRN (19:23)
[2018-09-14] MEDS ORDERED: PERCOCET 5/325 PO PRN (19:23)
[2018-09-14] MEDS ORDERED: SODIUM CHLORIDE FLUSH SYRINGE 10 ML IV PRN (19:23)
--- NOTE | 2018-09-14 19:23 | History and Physical Report ---
History of Present Illness Date of examination: 09/14/18 Date of admission: 09/14/18 Chief complaint: Recurrent seizures over last 3 days. History of present illness: 67 -year-old female presents to emergency room with recurrent seizures. Patient has had multiple ER visits for uncontrolled seizure. Patient has had 3 seizures in the last 24 hours while being compliant with her medications. Patient already discharged from the ER however prior to getting her discharge paperwork, patient had another seizure. Patient is currently postictal. Patient had 3 visits in last 72 hours.Having seizures inspite of being compliant. Past Medical History Hypertension: Yes Seizures: Yes Psychiatric Treatment: Yes (Bipolar) Surgical History Additional Surgical History: x 2 Social History Smoking Status: Never Smoker Substance Use Type: None Medications Home Medications: Home Medications Medication Instructions Recorded Confirmed Last Taken Type hydroCHLOROthiazide [HCTZ] 25 mg PO DAILY #30 tablet 06/27/17 09/12/18 09/12/18 Rx Docusate Sodium [Colace] 100 mg PO BID PRN #30 capsule 05/09/18 09/12/18 09/12/18 Rx amLODIPine [Norvasc] 5 mg PO ONCE 15 Days #90 tablet 09/13/18 Unknown Rx levETIRAcetam [Keppra TAB] 1,000 mg PO BID #60 tab 09/13/18 Unknown Rx levETIRAcetam [Keppra TAB] 1,000 mg PO BID #60 tablet 09/13/18 Unknown Rx Review of Systems Comment: All other systems reviewed and negative Constitutional: denies: chills, fever Respiratory: denies: cough Cardiovascular: denies: chest pain, palpitations Gastrointestinal: denies: abdominal pain, nausea, vomiting Musculoskeletal: denies: back pain Neurological: denies: headache, weakness, numbness, paresthesias, confusion, abnormal gait 14 point review of systems [id number] charles negative Medications and Allergies Allergies Allergy/AdvReac Type Severity Reaction Status Date / Time No Known Allergies Allergy Verified 07/14/18 08:25 Home Medications Medication Instructions Recorded Confirmed Last Taken Type hydroCHLOROthiazide [HCTZ] 25 mg PO DAILY #30 tablet 06/27/17 09/14/18 09/12/18 Rx Docusate Sodium [Colace] 100 mg PO BID PRN #30 capsule 05/09/18 09/14/18 09/12/18 Rx amLODIPine [Norvasc] 5 mg PO ONCE 15 Days #90 tablet 09/13/18 09/14/18 Unknown Rx levETIRAcetam [Keppra TAB] 1,000 mg PO BID #60 tab 09/13/18 Unknown Rx levETIRAcetam [Keppra TAB] 1,000 mg PO BID #60 tablet 09/13/18 09/14/18 Unknown Rx Chlorhexidine Mouthwash 15 milliunit BID 09/14/18 09/14/18 Unknown History Ibuprofen 800 mg Q6HR 09/14/18 09/14/18 Unknown History NIFEdipine [Nifedipine ER] 60 mg PO BID 09/14/18 09/14/18 Unknown History Pantoprazole 20 mg PO QDAY 09/14/18 09/14/18 Unknown History Phenytoin 100 mg PO TID 09/14/18 09/14/18 Unknown History hydrOXYzine 25 mg Q6HR 09/14/18 09/14/18 Unknown History Exam - Constitutional Vitals: Temp Pulse Resp BP Pulse Ox 98.7 F 74 18 177/96 88 09/14/18 11:45 09/14/18 18:24 09/14/18 15:00 09/14/18 18:24 09/14/18 16:01 General appearance: Present: no acute distress, well-nourished, other (Post ictal) - EENT Eyes: Present: PERRL ENT: hearing intact, clear oral mucosa - Neck Neck: Present: supple, normal ROM - Respiratory Respiratory effort: normal Respiratory: bilateral: CTA - Cardiovascular Heart rate: 78 Rhythm: regular Heart Sounds: Present: S1 & S2. Absent: rub, click - Extremities Extremities: no ischemia, pulses intact, pulses symmetrical, No edema Peripheral Pulses: within normal limits - Abdominal General gastrointestinal: Present: soft, non-tender, non-distended, normal bowel sounds Female genitourinary: Present: normal - Rectal Rectal Exam: deferred - Integumentary Integumentary: Present: clear, warm, dry - Musculoskeletal Musculoskeletal: gait normal, strength equal bilaterally - Psychiatric Psychiatric: appropriate mood/affect, intact judgment & insight - Neurologic Neurologic: CNII-XII intact, moves all extremities - Allied Health Allied health notes reviewed: nursing, case management Results - Labs CBC & Chem 7: 09/15/18 05:09/13/18 19:08 Labs: Laboratory Last Values WBC 5.1 K/mm3 (4.5-11.0) 09/13/18 19:08 RBC 3.58 M/mm3 (3.65-5.03) L 09/13/18 19:08 Hgb 11.1 gm/dl (10.1-14.3) 09/13/18 19:08 Hct 32.7 % (30.3-42.9) 09/13/18 19:08 MCV 91 fl (79-97) 09/13/18 19:08 MCH 31 pg (28-32) 09/13/18 19:08 MCHC 34 % (30-34) 09/13/18 19:08 RDW 13.9 % (13.2-15.2) 09/13/18 19:08 Plt Count 181 K/mm3 (140-440) 09/13/18 19:08 Lymph % (Auto) 30.0 % (13.4-35.0) 09/13/18 19:08 [place] % (Auto) 10.0 % (0.0-7.3) H 09/13/18 19:08 Eos % (Auto) 1.1 % (0.0-4.3) 09/13/18 19:08 Baso % (Auto) 1.1 % (0.0-1.8) 09/13/18 19:08 Lymph # 1.5 K/mm3 (1.2-5.4) 09/13/18 19:08 [place] # 0.5 K/mm3 (0.0-0.8) 09/13/18 19:08 Eos # 0.1 K/mm3 (0.0-0.4) 09/13/18 19:08 Baso # 0.1 K/mm3 (0.0-0.1) 09/13/18 19:08 Seg Neutrophils % 57.8 % (40.0-70.0) 09/13/18 19:08 Seg Neutrophils # 3.0 K/mm3 (1.8-7.7) 09/13/18 19:08 Sodium 143 mmol/L (137-145) 09/13/18 19:08 Potassium 4.1 mmol/L (3.6-5.0) 09/13/18 19:08 Chloride 106.9 mmol/L (98-107) 09/13/18 19:08 Carbon Dioxide 27 mmol/L (22-30) 09/13/18 19:08 13 mmol/L 09/13/18 19:08 BUN 11 mg/dL (7-17) 09/13/18 19:08 0.7 mg/dL (0.7-1.2) 09/13/18 19:08 Estimated GFR > 60 ml/min 09/13/18 19:08 16 % 09/13/18 19:08 Glucose 114 mg/dL (65-100) H 09/13/18 19:08 Calcium 8.7 mg/dL (8.4-10.2) 09/13/18 19:08 0.20 mg/dL (0.1-1.2) 09/13/18 19:08 < 0.2 mg/dL (0-0.2) 09/13/18 19:08 0.0 mg/dL 09/13/18 19:08 AST 30 units/L (5-40) 09/13/18 19:08 ALT 34 units/L (7-56) 09/13/18 19:08 107 units/L (35-129) 09/13/18 19:08 6.8 g/dL (6.3-8.2) 09/13/18 19:08 3.6 g/dL (3.9-5) L 09/13/18 19:08 1.1 % 09/13/18 19:08 Yellow (Yellow) 09/13/18 19:59 Clear (Clear) 09/13/18 19:59 5.0 (5.0-7.0) 09/13/18 19:59 Ur Specific [place] 1.028 (1.003-1.030) 09/13/18 19:59 30 mg/dl mg/dL (Negative) 09/13/18 19:59 Neg mg/dL (Negative) 09/13/18 19:59 Neg mg/dL (Negative) 09/13/18 19:59 Neg (Negative) 09/13/18 19:59 Neg (Negative) 09/13/18 19:59 Neg (Negative) 09/13/18 19:59 2.0 mg/dL (<2.0) 09/13/18 19:59 Ur Leukocyte Esterase Neg (Negative) 09/13/18 19:59 1.0 /HPF (0.0-6.0) 09/13/18 19:59 4.0 /HPF (0.0-6.0) 09/13/18 19:59 U Epithel Cells (Auto) 1.0 /HPF (0-13.0) 09/13/18 19:59 1+ /HPF (Negative) 09/13/18 19:59 Hyaline Casts 9 /LPF 09/13/18 19:59 1+ /HPF 09/13/18 19:59 Short CBC 09/15/18 Range/Units 05:01 WBC 8.1 (4.5-11.0) K/mm3 Hgb 12.1 (10.1-14.3) gm/dl Hct 35.4 (30.3-42.9) % Plt Count 208 (140-440) K/mm3 - Imaging and Cardiology CT Scan - head: report reviewed Assessment and Plan Advance Directives: Yes (Full code) VTE prophylaxis?: Chemical Plan of care discussed with patient/family: Yes - Patient Problems (1) Status epilepticus, generalized convulsive Current Visit: Yes Status: Acute Plan to address problem: Patient initated on IV Vimpat and IV Keppra EEG and Neuro consult initiated (2) HTN (hypertension) Current Visit: No Status: Chronic Plan to address problem: Cont antihypertensives (3) DVT prophylaxis Current Visit: Yes Status: Acute Plan to address problem: On lovenox and GI prophylaxis
[2018-09-14] MEDS ORDERED: COLACE PO PRN (19:28)
[2018-09-14] MEDS ORDERED: KEPPRA 1,000 MG in D5W 100 ML IV SCH (20:00)
[2018-09-14] MEDS ORDERED: NORVASC PO SCH (20:00)
[2018-09-14] MEDS ORDERED: HCTZ ONE (20:33)
[2018-09-14] MEDS: HCTZ PO SCH (20:34)
[2018-09-14] MEDS: VIMPAT 200 MG in NACL 0.9% 100 ML IV SCH (20:50)
[2018-09-14] MEDS ORDERED: KEPPRA 750 MG in D5W 100 ML IV SCH (22:00)
[2018-09-14] MEDS ORDERED: KEPPRA 1,000 MG in D5W 100 ML IV ONE (22:00)
[2018-09-14] MEDS: PEPCID PO SCH (22:22)
[2018-09-14] MEDS: D5NS 1,000 ML IV SCH (22:23)
[2018-09-14] MEDS: SODIUM CHLORIDE FLUSH SYRINGE 10 ML IV SCH (22:25)
[2018-09-15] MEDS: APRESOLINE IV PRN (04:22)
--- NOTE | 2018-09-15 05:24 | Event Note ---
Date: 09/15/18 Pt experienced seizure at 0020 while [address] down the hallway which lasted for approx 1 mine. She did not sustain any head/ facial injury. Pt experienced a 2nd seizure at 0345am which lasted for approx 45 seconds. Pt given IV Keppra 1gm. Neurology consult pending.
[2018-09-15] MEDS ORDERED: KEPPRA 1,000 MG in D5W 100 ML IV ONE (05:25)
[2018-09-15 05:56] LABS: Basophils % (Auto) 0.4 % (0.0-1.8); Eosinophils % (Auto) 0.1 % (0.0-4.3); Hematocrit 35.4 % (30.3-42.9); Hemoglobin 12.1 gm/dl (10.1-14.3); Lymphocytes # (Auto) 1.7 K/mm3 (1.2-5.4); Lymphocytes % (Auto) 21.5 % (13.4-35.0); Mean Corpuscular HGB Conc 34 % (30-34); Mean Corpuscular Volume 91 fl (79-97); Monocytes # (Auto) 0.6 K/mm3 (0.0-0.8); Monocytes % (Auto) 7.7 % (0.0-7.3); Platelet Count 208 K/mm3 (140-440); Red Cell Distribution Width 13.8 % (13.2-15.2)
[2018-09-15 06:21] LABS: Alanine Aminotransferase 36 units/L (7-56); Albumin 3.8 g/dL (3.9-5); BUN/Creatinine Ratio 13; Blood Urea Nitrogen 9 mg/dL (7-17); Calcium 8.6 mg/dL (8.4-10.2); Hemolysis Index 4
[2018-09-15] MEDS: HCTZ PO SCH (11:24)
[2018-09-15] MEDS: KEPPRA PO SCH ×2 (11:24→21:12)
[2018-09-15] MEDS: PEPCID PO SCH ×2 (11:25→21:12)
[2018-09-15] MEDS: SODIUM CHLORIDE FLUSH SYRINGE 10 ML IV SCH ×2 (11:26→21:13)
[2018-09-15] MEDS ORDERED: PNEUMOVAX 23 IM ONE (12:00)
[2018-09-15] MEDS: VIMPAT 200 MG in NACL 0.9% 100 ML IV SCH ×2 (12:17→21:12)
[2018-09-15] MEDS: D5NS 1,000 ML IV SCH (12:21)
--- NOTE | 2018-09-15 13:34 | Progress Note ---
Subjective Date of service: 09/15/18 Interval history: see my dictated note and at this time [id number] control is good and she is neuro stable prior hx of seizures is noted will follow with you Thanks did speak to the bedside nurse re monitoring is Objective - Vital Sign Vital Signs - 12hr 09/15/18 09/15/18 09/15/18 02:12 03:59 04:22 Temperature 99.5 F Pulse Rate 91 H 81 Respiratory 18 Rate Blood Pressure 157/75 188/75 188/75 O2 Sat by Pulse 98 Oximetry 09/15/18 09/15/18 05:31 07:35 Temperature 98.2 F Pulse Rate 76 79 Respiratory 20 Rate Blood Pressure 174/62 142/85 O2 Sat by Pulse 95 95 Oximetry - Laboratory Findings CBC and BMP: 09/15/18 05:01 09/15/18 05:01 Abnormal Lab Findings: Abnormal Labs 09/13/18 09/13/18 09/15/18 19:08 19:08 05:01 RBC 3.58 L [place] % (Auto) 10.0 H 7.7 H Seg Neutrophils % 70.3 H Potassium Glucose 114 H Albumin 3.6 L 09/15/18 05:01 RBC [place] % (Auto) Seg Neutrophils % Potassium 3.5 L Glucose 122 H Albumin 3.8 L
--- NOTE | 2018-09-15 15:09 | Cat Scan Report ---
CT head without contrast CLINICAL HISTORY: Altered mental status, seizure FINDINGS: There is continued incidental hyperostosis frontalis interna and thickening of the calvariu m which results in beam hardening artifact. However, the brain appears to demonstrate appropriate att enuation for age without significant interval change from the CT of 06/21/2017. The ventricular system remains appropriate in size and configuration. There is no clear CT evidence of acute intracranial he morrhage or significant mass effect. The visualized paranasal sinuses are clear. All CT scans at this location are performed using the CT dose reduction for ALARA by means of automated exposure control. IMPRESSION: There is no CT evidence of acute intracranial process. Signer Name: Hugh Boogie MD Signed: 09/15/2018 3:05 PM Workstation Name: [id number]
--- NOTE | 2018-09-15 16:04 | Progress Note ---
Assessment and Plan Assessment and plan: Status Epilepticus Admitted to [facility] On Keppra, Vimpat and Dilantin Seizure shunts Neurology following HypertensionPotential Monitor blood pressure DVT prophylaxis SCDs only because repeated seizures FULL CODE STATUS History Interval history: multiple seizures Hospitalist Physical - Physical exam Narrative exam: Gen: Not in acute distress, lying in bed, obese HEENT: Normocephalic, atraumatic Neck: supple, no JVD Heart: S1 and S2 reg, no murmurs, rubs or gallop Lungs: Clear, no crackles, no rhonchi Abd: soft, non tender, non distended, normal BS, Ext: No edema, no clubbing, no cyanosis Neuro: Awake,alert, Oriented X 3. No focal neuro signs Psych: normal mood - Constitutional Vitals: Temp Pulse Resp BP Pulse Ox 98.0 F 96 H 20 155/60 99 09/15/18 13:01 09/15/18 13:01 09/15/18 13:01 09/15/18 13:01 09/15/18 13:01 General appearance: Present: no acute distress, well-nourished, other (Post ic damon) Results - Labs CBC & Chem 7: 09/15/18 05:01 09/15/18 05:01 Labs: Laboratory Last Values WBC 8.1 K/mm3 (4.5-11.0) 09/15/18 05:01 RBC 3.90 M/mm3 (3.65-5.03) 09/15/18 05:01 Hgb 12.1 gm/dl (10.1-14.3) 09/15/18 05:01 Hct 35.4 % (30.3-42.9) 09/15/18 05:01 MCV 91 fl (79-97) 09/15/18 05:01 MCH 31 pg (28-32) 09/15/18 05:01 MCHC 34 % (30-34) 09/15/18 05:01 RDW 13.8 % (13.2-15.2) 09/15/18 05:01 Plt Count 208 K/mm3 (140-440) 09/15/18 05:01 Lymph % (Auto) 21.5 % (13.4-35.0) 09/15/18 05:01 [place] % (Auto) 7.7 % (0.0-7.3) H 09/15/18 05:01 Eos % (Auto) 0.1 % (0.0-4.3) 09/15/18 05:01 Baso % (Auto) 0.4 % (0.0-1.8) 09/15/18 05:01 Lymph # 1.7 K/mm3 (1.2-5.4) 09/15/18 05:01 [place] # 0.6 K/mm3 (0.0-0.8) 09/15/18 05:01 Eos # 0.0 K/mm3 (0.0-0.4) 09/15/18 05:01 Baso # 0.0 K/mm3 (0.0-0.1) 09/15/18 05:01 Seg Neutrophils % 70.3 % (40.0-70.0) H 09/15/18 05:01 Seg Neutrophils # 5.7 K/mm3 (1.8-7.7) 09/15/18 05:01 Sodium 140 mmol/L (137-145) 09/15/18 05:01 Potassium 3.5 mmol/L (3.6-5.0) L 09/15/18 05:01 Chloride 104.1 mmol/L (98-107) 09/15/18 05:01 Carbon Dioxide 25 mmol/L (22-30) 09/15/18 05:01 14 mmol/L 09/15/18 05:01 BUN 9 mg/dL (7-17) 09/15/18 05:01 0.7 mg/dL (0.7-1.2) 09/15/18 05:01 Estimated GFR > 60 ml/min 09/15/18 05:01 13 % 09/15/18 05:01 Glucose 122 mg/dL (65-100) H 09/15/18 05:01 5.4 % (4-6) 09/14/18 20:02 Calcium 8.6 mg/dL (8.4-10.2) 09/15/18 05:01 0.20 mg/dL (0.1-1.2) 09/15/18 05:01 < 0.2 mg/dL (0-0.2) 09/13/18 19:08 0.0 mg/dL 08/01/19 19:08 AST 27 units/L (5-40) 09/15/18 05:01 ALT 36 units/L (7-56) 09/15/18 05:01 111 units/L (35-129) 09/15/18 05:01 7.1 g/dL (6.3-8.2) 09/15/18 05:01 3.8 g/dL (3.9-5) L 09/15/18 05:01 1.2 % 09/15/18 05:01 Yellow (Yellow) 09/13/18 19:59 Clear (Clear) 09/13/18 19:59 5.0 (5.0-7.0) 09/13/18 19:59 Ur Specific [place] 1.028 (1.003-1.030) 09/13/18 19:59 30 mg/dl mg/dL (Negative) 09/13/18 19:59 Neg mg/dL (Negative) 09/13/18 19:59 Neg mg/dL (Negative) 09/13/18 19:59 Neg (Negative) 09/13/18 19:59 Neg (Negative) 09/13/18 19:59 Neg (Negative) 09/13/18 19:59 2.0 mg/dL (<2.0) 09/13/18 19:59 Ur Leukocyte Esterase Neg (Negative) 09/13/18 19:59 1.0 /HPF (0.0-6.0) 09/13/18 19:59 4.0 /HPF (0.0-6.0) 09/13/18 19:59 U Epithel Cells (Auto) 1.0 /HPF (0-13.0) 09/13/18 19:59 1+ /HPF (Negative) 09/13/18 19:59 Hyaline Casts 9 /LPF 09/13/18 19:59 1+ /HPF 09/13/18 19:59 Active Medications - Current Medications Current Medications: Generic Name Dose Route Start Last Admin Trade Name Freq PRN Reason Stop Dose Admin Acetaminophen 650 mg 09/14/18 19:23 Tylenol PO Q4H PRN Pain MILD(1-3)/Fever >100.5/DOMÍNGUEZ Amlodipine Besylate 5 mg 09/14/18 20:00 Norvasc PO ONCE DAVE Docusate Sodium 100 mg 09/14/18 19:28 Colace PO BID PRN Constipation Famotidine 20 mg 09/14/18 22:00 09/15/18 11:25 Pepcid PO 20 mg BID DAVE Administration Hydralazine HCl 10 mg 09/15/18 04:07 09/15/18 04:22 Apresoline IV 10 mg Q4HR PRN Administration Blood Pressure Hydrochlorothiazide 25 mg 09/14/18 20:00 09/15/18 11:24 Hctz PO 25 mg DAILY DAVE Administration Hydromorphone HCl 0.5 mg 09/14/18 19:23 Dilaudid IV Q3H PRN Pain , Severe (7-10) Dextrose/Sodium Chloride 1,000 mls @ 75 mls/hr 09/14/18 20:00 09/15/18 12:21 D5ns IV 75 mls/hr DIRECT DAVE Administration Lacosamide 200 mg/ Sodium 120 mls @ 100 mls/hr 09/14/18 20:00 09/15/18 12:17 Chloride IV 100 mls/hr Q12H DAVE Administration Levetiracetam 1,000 mg 09/15/18 10:00 09/15/18 11:24 Keppra PO 1,000 mg BID DAVE Administration Ondansetron HCl 4 mg 09/14/18 19:23 Zofran IV Q8H PRN Nausea And Vomiting Oxycodone/Acetaminophen 1 tab 09/14/18 19:23 Percocet 5/325 PO Q6H PRN Pain, Moderate (4-6) Sodium Chloride 10 ml 09/14/18 22:00 09/15/18 11:26 Sodium Chloride Flush Syringe 10 Ml IV 10 ml BID DAVE Administration Sodium Chloride 10 ml 09/14/18 19:23 Sodium Chloride Flush Syringe 10 Ml IV PRN PRN LINE FLUSH Nutrition/Malnutrition Assess - Dietary Evaluation Nutrition/Malnutrition Findings: Nutrition Notes Start: 09/15/18 14:05 Freq: Status: Active Protocol: Document 09/15/18 14:05 (Rec: 09/15/18 14:07 [id number]) Nutrition Notes Need for Assessment generated from: MST Initial or Follow up Brief Note Current Diagnosis Hypertension Other Pertinent Diagnosis Seizures, Bipolar Current Diet Regular Labs/Tests Reviewed Pertinent Medications Reviewed Height 5 ft 5 in Weight 93.2 kg [place] Body Weight (kg) 56.81 BMI 34.2 Subjective/Other Information Screened for malnutrition. Pt stated that [employer] she ate 4 meals daily. Stated that her appetite is good and that she ate all of her breakfast. Unsure of UBW. No temporal or orbital wasting . Burn Absent Trauma Absent Nutrition Intervention Revisit per MD consult or patient Sign Off request:
[2018-09-15] MEDS ORDERED: VIMPAT 200 MG in NACL 0.9% 100 ML IV ONE (17:54)
[2018-09-15] MEDS ORDERED: ATIVAN IV PRN (18:28)
[2018-09-15] MEDS ORDERED: PANTOPRAZOLE 20 MG PO SCH (18:30)
[2018-09-15] MEDS: PROTONIX PO SCH (18:59)
[2018-09-15] MEDS: DILANTIN PO SCH (18:59)
[2018-09-15] MEDS ORDERED: PHENYTOIN 100 MG PO SCH (19:00)
[2018-09-15] MEDS: PROCARDIA XL PO SCH (21:12)
[2018-09-15] MEDS ORDERED: NON-FORMULARY (Nifedipine [Nifedipine Er] 60 MG) PO SCH (22:00)
[2018-09-16] MEDS: TYLENOL PO PRN (02:39)
[2018-09-16] MEDS: APRESOLINE IV PRN ×2 (02:41→09:11)
--- NOTE | 2018-09-16 07:43 | Consultation ---
HISTORY OF PRESENT ILLNESS: A 67-year-old patient presents to the hospital with a history of having a prior history of epilepsy, seizures. She began to have seizures early, had been taking Vimpat and Keppra. At the present time, the seizures have stopped. I talked to the nurse who is monitoring her closely, there is no history of having any history of seizures previously. I did review over the Emergency Room notes. She has a history of hypertension and seizures. When she presented to the Emergency Room, she was in a grocery store, she had an onset of seizures while in the grocery store. She has no known allergies. She had been taking on presentation Keppra 1000 mg b.i.d. and had started having recurrent seizures after being admitted. On my examination, she is alert at this point. Speech is clear. Affect is appropriate. Motor tone is normal. Blood pressure 114/84, pulse rate 86, respirations 18. She seems a little confused with postictal at the present time. She is not mentally fully intact. I did speak with the nurse at the bedside. She apparently had a seizure about 4 hours ago, so she may be simply postictal. IMPRESSION AND PLAN: Generalized seizures. Etiology for why she is having more seizures is not altogether clear. I would get a CT scan on the patient to further assess this. The patient's current history is that she should come under excellent control with Vimpat. I plan to monitor her condition and response to therapy. JOB# [id number] TEMI/BETHANY
[2018-09-16] MEDS: HCTZ PO SCH (09:10)
[2018-09-16] MEDS: VIMPAT 200 MG in NACL 0.9% 100 ML IV SCH ×2 (09:10→20:44)
[2018-09-16] MEDS: DILANTIN PO SCH ×3 (09:10→19:29)
[2018-09-16] MEDS: PROTONIX PO SCH (09:11)
[2018-09-16] MEDS: PEPCID PO SCH ×2 (09:11→22:07)
[2018-09-16] MEDS: KEPPRA PO SCH ×2 (09:11→22:07)
[2018-09-16] MEDS: PROCARDIA XL PO SCH ×2 (09:11→22:07)
[2018-09-16] MEDS: SODIUM CHLORIDE FLUSH SYRINGE 10 ML IV SCH ×2 (09:12→22:08)
--- NOTE | 2018-09-16 09:31 | Progress Note ---
Subjective Date of service: 09/16/18 Interval history: check EEG and continue same med profile etc. monitor for further seizures Objective - Vital Sign Vital Signs - 12hr 09/16/18 09/16/18 09/16/18 02:37 02:41 03:37 Temperature 100.2 F H Pulse Rate 79 82 Respiratory 18 Rate Blood Pressure 218/93 218/93 181/78 Blood Pressure [Left] O2 Sat by Pulse 99 Oximetry 09/16/18 09/16/18 04:37 07:51 Temperature 99.4 F Pulse Rate 73 79 Respiratory 18 Rate Blood Pressure 176/76 Blood Pressure 185/89 [Left] O2 Sat by Pulse 97 Oximetry - Laboratory Findings CBC and BMP: 09/15/18 05:01 09/15/18 05:01 Abnormal Lab Findings: Abnormal Labs 09/13/18 09/13/18 09/15/18 19:08 19:08 05:01 RBC 3.58 L [place] % (Auto) 10.0 H 7.7 H Seg Neutrophils % 70.3 H Potassium Glucose 114 H Albumin 3.6 L 09/15/18 05:01 RBC [place] % (Auto) Seg Neutrophils % Potassium 3.5 L Glucose 122 H Albumin 3.8 L
[2018-09-16] MEDS ORDERED: ATIVAN IV PRN (13:23)
--- NOTE | 2018-09-16 13:59 | Progress Note ---
Assessment and Plan Assessment and plan: Status Epilepticus Admitted to [facility] On Keppra, Vimpat and Dilantin ativan iv prn Seizure precaution Neurology following. I discussed with Dr. forde Hypertension Monitor blood pressure DVT prophylaxis SCDs only because repeated seizures FULL CODE STATUS History Interval history: multiple seizures Had 2 more seizures in afternoon yesterday Hospitalist Physical - Physical exam Narrative exam: Gen: Not in acute distress, lying in bed, obese HEENT: Normocephalic, atraumatic Neck: supple, no JVD Heart: S1 and S2 reg, no murmurs, rubs or gallop Lungs: Clear, no crackles, no rhonchi Abd: soft, non tender, non distended, normal BS, Ext: No edema, no clubbing, no cyanosis Neuro: Awake,alert, Oriented X 3. No focal neuro signs Psych: normal mood - Constitutional Vitals: Temp Pulse Resp BP Pulse Ox 99.4 F 79 18 185/89 97 09/16/18 07:51 09/16/18 07:51 09/16/18 07:51 09/16/18 07:51 09/16/18 04:37 General appearance: Present: well-nourished Results - Labs CBC & Chem 7: 09/15/18 05:01 09/15/18 05:01 Labs: Laboratory Last Values WBC 8.1 K/mm3 (4.5-11.0) 09/15/18 05:01 RBC 3.90 M/mm3 (3.65-5.03) 09/15/18 05:01 Hgb 12.1 gm/dl (10.1-14.3) 09/15/18 05:01 Hct 35.4 % (30.3-42.9) 09/15/18 05:01 MCV 91 fl (79-97) 09/15/18 05:01 MCH 31 pg (28-32) 09/15/18 05:01 MCHC 34 % (30-34) 09/15/18 05:01 RDW 13.8 % (13.2-15.2) 09/15/18 05:01 Plt Count 208 K/mm3 (140-440) 09/15/18 05:01 Lymph % (Auto) 21.5 % (13.4-35.0) 09/15/18 05:01 [place] % (Auto) 7.7 % (0.0-7.3) H 09/15/18 05:01 Eos % (Auto) 0.1 % (0.0-4.3) 09/15/18 05:01 Baso % (Auto) 0.4 % (0.0-1.8) 09/15/18 05:01 Lymph # 1.7 K/mm3 (1.2-5.4) 09/15/18 05:01 [place] # 0.6 K/mm3 (0.0-0.8) 09/15/18 05:01 Eos # 0.0 K/mm3 (0.0-0.4) 09/15/18 05:01 Baso # 0.0 K/mm3 (0.0-0.1) 09/15/18 05:01 Seg Neutrophils % 70.3 % (40.0-70.0) H 09/15/18 05:01 Seg Neutrophils # 5.7 K/mm3 (1.8-7.7) 09/15/18 05:01 Sodium 140 mmol/L (137-145) 09/15/18 05:01 Potassium 3.5 mmol/L (3.6-5.0) L 09/15/18 05:01 Chloride 104.1 mmol/L (98-107) 09/15/18 05:01 Carbon Dioxide 25 mmol/L (22-30) 09/15/18 05:01 14 mmol/L 09/15/18 05:01 BUN 9 mg/dL (7-17) 09/15/18 05:01 0.7 mg/dL (0.7-1.2) 09/15/18 05:01 Estimated GFR > 60 ml/min 09/15/18 05:01 13 % 09/15/18 05:01 Glucose 122 mg/dL (65-100) H 09/15/18 05:01 5.4 % (4-6) 09/14/18 20:02 Calcium 8.6 mg/dL (8.4-10.2) 09/15/18 05:01 0.20 mg/dL (0.1-1.2) 09/15/18 05:01 < 0.2 mg/dL (0-0.2) 09/13/18 19:08 0.0 mg/dL 09/13/18 19:08 AST 27 units/L (5-40) 09/15/18 05:01 ALT 36 units/L (7-56) 09/15/18 05:01 111 units/L (35-129) 09/15/18 05:01 7.1 g/dL (6.3-8.2) 09/15/18 05:01 3.8 g/dL (3.9-5) L 09/15/18 05:01 1.2 % 09/15/18 05:01 Yellow (Yellow) 09/13/18 19:59 Clear (Clear) 09/13/18 19:59 5.0 (5.0-7.0) 09/13/18 19:59 Ur Specific [place] 1.028 (1.003-1.030) 09/13/18 19:59 30 mg/dl mg/dL (Negative) 09/13/18 19:59 Neg mg/dL (Negative) 09/13/18 19:59 Neg mg/dL (Negative) 09/13/18 19:59 Neg (Negative) 09/13/18 19:59 Neg (Negative) 09/13/18 19:59 Neg (Negative) 09/13/18 19:59 2.0 mg/dL (<2.0) 09/13/18 19:59 Ur Leukocyte Esterase Neg (Negative) 09/13/18 19:59 1.0 /HPF (0.0-6.0) 09/13/18 19:59 4.0 /HPF (0.0-6.0) 09/13/18 19:59 U Epithel Cells (Auto) 1.0 /HPF (0-13.0) 09/13/18 19:59 1+ /HPF (Negative) 09/13/18 19:59 Hyaline Casts 9 /LPF 09/13/18 19:59 1+ /HPF 09/13/18 19:59 Active Medications - Current Medications Current Medications: Generic Name Dose Route Start Last Admin Trade Name Freq PRN Reason Stop Dose Admin Acetaminophen 650 mg 09/14/18 19:23 09/16/18 02:39 Tylenol PO 650 mg Q4H PRN Administration Pain MILD(1-3)/Fever >100.5/DOMÍNGUEZ Amlodipine Besylate 5 mg 09/14/18 20:00 Norvasc PO ONCE DAVE Docusate Sodium 100 mg 09/14/18 19:28 Colace PO BID PRN Constipation Famotidine 20 mg 09/14/18 22:00 09/16/18 09:11 Pepcid PO 20 mg BID DAVE Administration Hydralazine HCl 10 mg 09/15/18 04:07 09/16/18 09:11 Apresoline IV 10 mg Q4HR PRN Administration Blood Pressure Hydrochlorothiazide 25 mg 09/14/18 20:00 09/16/18 09:10 Hctz PO 25 mg DAILY DAVE Administration Hydromorphone HCl 0.5 mg 09/14/18 19:23 Dilaudid IV Q3H PRN Pain , Severe (7-10) Dextrose/Sodium Chloride 1,000 mls @ 75 mls/hr 09/14/18 20:00 09/15/18 12:21 D5ns IV 75 mls/hr DIRECT DAVE Administration Lacosamide 200 mg/ Sodium 120 mls @ 100 mls/hr 09/14/18 20:00 09/16/18 09:10 Chloride IV 100 mls/hr Q12H DAVE Administration Levetiracetam 1,000 mg 09/15/18 10:00 09/16/18 09:11 Keppra PO 1,000 mg BID DAVE Administration Lorazepam 1 mg 09/16/18 13:23 09/16/18 13:46 Ativan IV 1 mg Q4H PRN Administration Agitation Nifedipine 60 mg 09/15/18 22:00 09/16/18 09:11 Procardia Xl PO 60 mg BID DAVE Administration Ondansetron HCl 4 mg 09/14/18 19:23 09/16/18 13:46 Zofran IV 4 mg Q8H PRN Administration Nausea And Vomiting Oxycodone/Acetaminophen 1 tab 09/14/18 19:23 Percocet 5/325 PO Q6H PRN Pain, Moderate (4-6) Pantoprazole Sodium 20 mg 09/15/18 19:00 09/16/18 09:11 Protonix PO 20 mg QDAY DAVE Administration Phenytoin 100 mg 09/15/18 19:00 09/16/18 13:42 Dilantin PO 100 mg TID DAVE Administration Sodium Chloride 10 ml 09/14/18 22:00 09/16/18 09:12 Sodium Chloride Flush Syringe 10 Ml IV 10 ml BID DAVE Administration Sodium Chloride 10 ml 09/14/18 19:23 Sodium Chloride Flush Syringe 10 Ml IV PRN PRN LINE FLUSH Nutrition/Malnutrition Assess - Dietary Evaluation Nutrition/Malnutrition Findings: Nutrition Notes Start: 09/15/18 14:05 Freq: Status: Active Protocol: Document 09/15/18 14:05 RM (Rec: 09/15/18 14:07 RM [id number]) Nutrition Notes Need for Assessment generated from: MST Initial or Follow up Brief Note Current Diagnosis Hypertension Other Pertinent Diagnosis Seizures, Bipolar Current Diet Regular Labs/Tests Reviewed Pertinent Medications Reviewed Height 5 ft 5 in Weight 93.2 kg [place] Body Weight (kg) 56.81 BMI 34.2 Subjective/Other Information Screened for malnutrition. Pt stated that [employer] she ate 4 meals daily. Stated that her appetite is good and that she ate all of her breakfast. Unsure of UBW. No temporal or orbital wasting . Burn Absent Trauma Absent Nutrition Intervention Revisit per MD consult or patient Sign Off request:
--- NOTE | 2018-09-16 15:30 | Progress Note ---
Subjective Date of service: 09/16/18 Interval history: plan keppra blood level the CT of brain is norml spoke to Dr. George no further seizures are noted Objective - Vital Sign Vital Signs - 12hr 09/16/18 09/16/18 09/16/18 03:37 04:37 07:51 Temperature 99.4 F Pulse Rate 82 73 79 Respiratory 18 Rate Blood Pressure 181/78 176/76 Blood Pressure 185/89 [Left] O2 Sat by Pulse 99 97 Oximetry - Laboratory Findings CBC and BMP: 09/15/18 05:01 09/15/18 05:01 Abnormal Lab Findings: Abnormal Labs 09/13/18 09/13/18 09/15/18 19:08 19:08 05:01 RBC 3.58 L [place] % (Auto) 10.0 H 7.7 H Seg Neutrophils % 70.3 H Potassium Glucose 114 H Albumin 3.6 L 09/15/18 05:01 RBC [place] % (Auto) Seg Neutrophils % Potassium 3.5 L Glucose 122 H Albumin 3.8 L
[2018-09-17] MEDS: TYLENOL PO PRN (03:24)
[2018-09-17] MEDS: APRESOLINE IV PRN (03:26)
[2018-09-17 05:37] LABS: BUN/Creatinine Ratio 14; Blood Urea Nitrogen 10 mg/dL (7-17); Calcium 8.6 mg/dL (8.4-10.2); Hemolysis Index 31
[2018-09-17 07:17] LABS: Hematocrit 40.6 % (30.3-42.9); Hemoglobin 13.7 gm/dl (10.1-14.3); Mean Corpuscular HGB Conc 34 % (30-34); Mean Corpuscular Volume 91 fl (79-97); Platelet Count 231 K/mm3 (140-440); Red Blood Count 4.47 M/mm3 (3.65-5.03); Red Cell Distribution Width 13.8 % (13.2-15.2)
[2018-09-17] MEDS: DILANTIN PO SCH (07:46)
[2018-09-17] MEDS: VIMPAT 200 MG in NACL 0.9% 100 ML IV SCH (07:58)
[2018-09-17] MEDS ORDERED: K-DUR PO SCH (09:00)
[2018-09-17] MEDS: PROCARDIA XL PO SCH (10:09)
[2018-09-17] MEDS: PROTONIX PO SCH (10:09)
[2018-09-17] MEDS: KEPPRA PO SCH (10:10)
[2018-09-17] MEDS: SODIUM CHLORIDE FLUSH SYRINGE 10 ML IV SCH (10:11)
[2018-09-17] MEDS: PEPCID PO SCH (10:11)
[2018-09-17] MEDS: HCTZ PO SCH (10:12)
--- NOTE | 2018-09-17 13:04 | Discharge Summary ---
Providers - Providers Date of Admission: 09/14/18 17:44 Date of discharge: 09/17/18 Attending physician: DECLAN HENRIQUEZ 09/13/18 22:06 Consult to Case Management [CONS] Urgent Services Needed at Discharge: Case Specialist Notified:: no 09/15/18 08:15 Consult to Physician [CONS] Routine Comment: seen patient/ sharron Consulting Provider: JENNY SYLVESTER Physician Instructions: Reason For Exam: seizures Primary care physician: CASSIE BARRAGAN Hospitalization Condition: Fair Disposition: DC-01 TO HOME OR SELFCARE Core Measure Documentation - Palliative Care Palliative Care/ Comfort Measures: Not Applicable - Core Measures Any of the following diagnoses?: none Exam - Constitutional Vitals: Temp Pulse Resp BP Pulse Ox 99.4 F 89 18 148/84 96 09/17/18 07:59 09/17/18 07:59 09/17/18 07:59 09/17/18 07:59 09/17/18 07:59 Plan Activity: no driving until cleared by PCP Diet: low fat, low cholesterol, low salt Additional Instructions: 1. Follow up with PCP or [facility] in 1 week. 2.Follow up with Dr. Sylvester,Neurology in 1 week. 3. No driving for at least 6 months and until cleared by Physician Follow up with: PRIMARY CARE, [Referring] - 3-5 Days Prescriptions: levETIRAcetam [Keppra TAB] 1,000 mg PO BID #60 tab levETIRAcetam [Keppra TAB] 1,000 mg PO BID #60 tablet Phenytoin 100 mg PO TID #90 Lacosamide [Vimpat] 100 mg PO Q12HR #60 tablet
[2018-09-17 13:55] VITALS: BP 128/65
== END 2018-09-17 17:10 | disposition home or self-care (01) | DRG 101 ==
LOC: ED 18:48 → 2B-ACE 09-14 17:44
PROVIDERS: ADMIT Internal Medicine; ATTEND Internal Medicine
PROC: 3E0234Z Introduction of Serum, Toxoid and Vaccine into Muscle, Percutaneous Approach (ICD-10-PCS; principal; 2018-09-15)
DX: G40.401 Other generalized epilepsy and epileptic syndromes, not intractable, with status epilepticus (principal); I10 Essential (primary) hypertension; F31.9 Bipolar disorder, unspecified; I16.0 Hypertensive urgency; S00.512A Abrasion of oral cavity, initial encounter; Y93.89 Activity, other specified; Z23 Encounter for immunization; Z79.899 Other long term (current) drug therapy; Y92.89 Other specified places as the place of occurrence of the external cause; Y99.8 Other external cause status
CPT/HCPCS: 36415; 70450; 80048; 80053; 80076; 81001; 83036; 85025; 85027; 87116; 90732; 93005; 93010; 96365; 96366; 96375; 96376; G0378; C9254; J0360; J1953; J2060; J2405; J7042